=== PATIENT | female | born 1935 | race Caucasian/White ===

== ENCOUNTER → 2016-06-06 | Outpatient (CLI) | payer OTHER, MEDICARE ==
[~2016-06-06] MED LIST: ACET325T95 PO; BECL0.3A INH; CHOL100010 PO; DIPH25CA37 PO; ENOX30IN4 SQ; FSM70 PO; GLUCTAB7 PO; LISI-729 PO; LSN10 PO; MELA1TAB3 PO; SERT1TAB88 PO
--- NOTE | 2016-06-06 13:44 | DIAGNOSTIC IMAGING REPORT ---
CHEST 2 VIEWS ROUTINE CLINICAL HISTORY: COUGH/WHEEZE dyspnea COMPARISON STUDY: 03/21/2015 FINDINGS: Emphysematous change. Chronic granulomatous change. No focal infiltrate. IMPRESSION: Chronic and emphysematous change. No acute process. Electronically signed by: Cristhian Cherry M.D. 06/06/2016 1:43 PM Dictated Date/Time: 06/06/2016 1:42 PM
== END | disposition home or self-care (01) ==
LOC: C.RAD 13:21
PROVIDERS: ATTEND Nurse Practitioner Family
DX: R05 Cough (principal); R06.2 Wheezing

== ENCOUNTER → 2016-06-24 | Outpatient (CLI) | payer OTHER, MEDICARE | END | disposition home or self-care (01) | LOC: C.MAMM 07:58 | PROVIDERS: ATTEND Internal Medicine | DX: M85.859 Other specified disorders of bone density and structure, unspecified thigh (principal); Z78.0 Asymptomatic menopausal state; M81.8 Other osteoporosis without current pathological fracture ==

== ENCOUNTER → 2016-07-22 | Outpatient (CLI) | payer OTHER, MEDICARE | LOC: C.LABFOXMH 09:38 | PROVIDERS: ATTEND Internal Medicine | DX: M81.0 Age-related osteoporosis without current pathological fracture (principal) ==

== ENCOUNTER → 2016-08-13 | Outpatient (CLI) | payer OTHER, MEDICARE ==
--- NOTE | 2016-08-13 16:35 | DIAGNOSTIC IMAGING REPORT ---
CHEST 2 VIEWS ROUTINE CLINICAL HISTORY: COUGH COMPARISON STUDY: June 06, 2016 FINDINGS: There is severe pulmonary emphysema. There are calcified right hilar and right paratracheal lymph nodes. There is no failure. There is no focal pulmonary consolidation. There is a severe compression fracture at the T12 level. This is present on the prior study but has progressed slightly.[ IMPRESSION: No active disease in the chest. Electronically signed by: Shaggy Brown M.D. 08/13/2016 4:34 PM Dictated Date/Time: 08/13/2016 4:33 PM
== END | disposition home or self-care (01) ==
LOC: C.RADBC 16:19
PROVIDERS: ATTEND Internal Medicine
DX: R05 Cough (principal); R09.89 Other specified symptoms and signs involving the circulatory and respiratory systems

== ENCOUNTER → 2016-10-15 | Outpatient (CLI) | payer OTHER, MEDICARE ==
[2016-10-15 08:55] LABS: HEMATOCRIT 44.9 % (37-47); MEAN CELL VOLUME 94.3 fL (80-100); MEAN CORPUSCULAR HEMOGLOBIN 31.1 pg (25-34); MEAN PLATELET VOLUME 9.4 fL (7.4-10.4); PLATELET COUNT 219 K/uL (130-400); RED BLOOD COUNT 4.76 M/uL (4.2-5.4); WHITE BLOOD COUNT 3.83 K/uL (4.8-10.8)
[2016-10-15 09:02] LABS: ALT/SGPT 31 U/L (12-78); AST/SGOT 28 U/L (15-37); BLOOD UREA NITROGEN 12 mg/dl (7-18); BUN/CREATININE RATIO 16.2 (10-20); CALCIUM 9.3 mg/dl (8.5-10.1); CARBON DIOXIDE 30 mmol/L (21-32); CHLORIDE 102 mmol/L (98-107); CREATININE 0.76 mg/dl (0.60-1.20); GLUCOSE 81 mg/dl (70-99); SODIUM 139 mmol/L (136-145)
[2016-10-15 09:04] LABS: ALB/GLOB RATIO 1.5 (0.9-2); ALKALINE PHOSPHATASE 29 U/L (45-117)
== END | disposition home or self-care (01) ==
LOC: C.LABFOXMH 08:40
PROVIDERS: ATTEND Internal Medicine
DX: I10 Essential (primary) hypertension (principal)

== ENCOUNTER 2016-12-04 23:43 | Inpatient (IN) | payer OTHER, MEDICARE ==
[~2016-12-04] VITALS: Ht 160 cm; Wt 48.8 kg
[~2016-12-04 23:43] MED LIST changes: -ENOX30IN4 SQ; -LSN10 PO
[2016-12-05] MEDS ORDERED: FENTANYL CITRATE INJ 50 MCG/1 ML 2 ML VIAL IV STA (01:04)
[2016-12-05 01:48] LABS: BASO ABS # 0.05 K/uL (0-0.2); COMPLETE YES; IG% 0.4 %; LYMPH % 10.6 %; LYMPH ABS # 0.55 K/uL (1.2-3.4); MEAN CELL VOLUME 93.3 fL (80-100); MEAN CORPUSCULAR HEMOGLOBIN 31.1 pg (25-34); MEAN CORPUSCULAR HGB CONC 33.3 g/dl (32-36); MEAN PLATELET VOLUME 8.7 fL (7.4-10.4); PLATELET COUNT 195 K/uL (130-400); RED BLOOD COUNT 4.18 M/uL (4.2-5.4); WHITE BLOOD COUNT 5.18 K/uL (4.8-10.8)
--- NOTE | 2016-12-05 01:52 | EMERGENCY ROOM VISIT NOTE ---
History Report prepared by Gamaibkaci: Jon Marcus Under the Supervision of: Dr. Cesar Wilkinson M.D. First contact with patient: 23:45 Chief Complaint: FALL Stated Complaint: FALL History of Present Illness The patient is a 81 year old female who presents to the Emergency Room with complaints of constant right hip pain sp fall occurring just prior to arrival. She states that she fell because she tripped over her bed and fell onto her hip. She notes that she has a history of multiple surgeries and fractures of this hip. The patient did not hit her head or lose consciousness. She states that she cannot bear weight on her right leg. She denies any numbness, chest pain, SOB, abdominal pain, back pain, fevers, or neck pain. The patient is not on any blood thinners. Source of History: patient Onset: Just prior to arrival Position: pelvis (right hip) Timing: constant Associated Symptoms: No LOC, No fevers, No neck pain, No chest pain, No SOB , No abdominal pain, No back pain, No numbness Review of Systems See HPI for pertinent positives & negatives. A total of 10 systems reviewed and were otherwise negative. Past Medical & Surgical Medical Problems: (1) Asthma, Unspecified (2) Fall (3) Hypertension Nos Family History FH: cancer Social History Smoking Status: Former Smoker Alcohol Use: none Marital Status: Housing Status: lives with significant other Occupation Status: retired Current/Historical Medications Scheduled Alendronate Sodium (Alendronate Sodium), 70 MG PO WK Lisinopril (Zestril), 5 MG PO DAILY Sertraline HCl (Sertraline HCl), 25 MG PO QPM Scheduled PRN Acetaminophen (Tylenol), 650 MG PO Q4 PRN for Pain Allergies Coded Allergies: [place] Seed (Unverified Allergy, Severe, ITCHING, SOB, 12/05/16) Iodinated Diagnostic Agents (Unverified Allergy, Intermediate, SHORTNESS OF BREATH, 12/05/16) CONFIRMED 08/11/2014 [place] Oil (Verified Allergy, Unknown, ITCHING,SHORTNESS OF BREATH, ) Morphine (Verified Adverse Reaction, Unknown, GOT NAUSEATED AFTER 2ND SURGERY W/MSO4,NOTHING RELIEVED IT, 12/05/16) SEVERE NAUSEA Physical Exam Vital Signs Date Time Temp Pulse Resp B/P (MAP) Pulse Ox O2 Delivery O2 Flow Rate FiO2 12/05/16 05:00 88 17 188/82 94 Room Air 12/04/16 23:49 36.8 97 19 186/105 95 Room Air Physical Exam GENERAL: Patient is uncomfortable appearing and in mild distress. HEENT: No acute trauma, normocephalic atraumatic, mucous membranes moist, no nasal congestion, no scleral icterus. NECK: No stridor, no adenopathy, no meningismus, trachea is midline. LUNGS: No dyspnea. Clear to auscultation and equal bilaterally. No wheeze, no rhonchi. HEART: Regular rate and rhythm. No murmurs, rubs, gallops appreciated. ABDOMEN: Soft, nontender, bowel sounds positive, no masses appreciated, no peritonitis. BACK: No midline tenderness, no CVA tenderness EXTREMITIES: No cyanosis, no edema. Severe tenderness to palpation over the right hip. Pain with any ROM of the right hip. Tenderness to palpation of the mid-anterior right thigh. Distal NVI. NEUROLOGIC: Alert and oriented, no acute motor or sensory deficits, no focal weakness, cranial nerves grossly intact. SKIN: No rash, no jaundice, no diaphoresis. Medical Decision & Procedures ER Provider Diagnostic Interpretation: One View Pelvis X-ray interpreted by me: normal pelvic rings. No acute pelvic fracture. Right hip replacement with slight loosensy over the right greater trochanter. Hardware appears intact. Four View Right Femur X-ray interpreted by me: Right hip replacement. Hardware, rashad and cement appear intact. Loosensy over the right greater trochanter without displacement. New compared to previous x-ray from 2016. Laboratory Results 12/05/16 01:25 Red Blood Count 4.18, Mean Corpuscular Volume 93.3, Mean Corpuscular Hemoglobin 31.1, Mean Corpuscular Hemoglobin Concent 33.3, Mean Platelet Volume 8.7, Neutrophils (%) (Auto) 71.0, Lymphocytes (%) (Auto) 10.6, Monocytes (%) (Auto) 11.0, Eosinophils (%) (Auto) 6.0, Basophils (%) (Auto) 1.0, Neutrophils # (Auto ) 3.68, Lymphocytes # (Auto) 0.55, Monocytes # (Auto) 0.57, Eosinophils # (Auto ) 0.31, Basophils # (Auto) 0.05 8/31/17 01:25 Test 12/05/16 01:25 White Blood Count 5.18 K/uL (4.8-10.8) Red Blood Count 4.18 M/uL (4.2-5.4) Hemoglobin 13.0 g/dL (12.0-16.0) Hematocrit 39.0 % (37-47) Mean Corpuscular Volume 93.3 fL (80-100) Mean Corpuscular Hemoglobin 31.1 pg (25-34) Mean Corpuscular Hemoglobin Concent 33.3 g/dl (32-36) Platelet Count 195 K/uL (130-400) Mean Platelet Volume 8.7 fL (7.4-10.4) Neutrophils (%) (Auto) 71.0 % Lymphocytes (%) (Auto) 10.6 % Monocytes (%) (Auto) 11.0 % Eosinophils (%) (Auto) 6.0 % Basophils (%) (Auto) 1.0 % Neutrophils # (Auto) 3.68 K/uL (1.4-6.5) Lymphocytes # (Auto) 0.55 K/uL (1.2-3.4) Monocytes # (Auto) 0.57 K/uL (0.11-0.59) Eosinophils # (Auto) 0.31 K/uL (0-0.5) Basophils # (Auto) 0.05 K/uL (0-0.2) RDW Standard Deviation 44.1 fL (36.4-46.3) RDW Coefficient of Variation 12.9 % (11.5-14.5) Immature Granulocyte % (Auto) 0.4 % Immature Granulocyte # (Auto) 0.02 K/uL (0.00-0.02) Prothrombin Time 12.0 SECONDS (9.0-12.0) Prothromb Time International Ratio 1.1 (0.9-1.1) Activated Partial Thromboplast Time 25.9 SECONDS (21.0-31.0) Partial Thromboplastin Ratio 1.0 Anion Gap 4.0 mmol/L (3-11) Est Creatinine Clear Calc Drug Dose 39.8 ml/min Estimated GFR () 74.5 Estimated GFR (Non- 64.3 BUN/Creatinine Ratio 24.0 (10-20) Calcium Level 8.7 mg/dl (8.5-10.1) Laboratory results as reviewed by me. Medications Administered Medications (Trade) Dose Ordered Sig/Solo Route Start Time Stop Time Status Last Admin Dose Admin Fentanyl Citrate (Fentanyl Inj) 25 mcg NOW STAT IV 12/05/16 01:04 12/05/16 01:05 DC 12/05/16 01:35 25 MCG ED Course 2346: The patient was evaluated in room B4B. A complete history and physical exam was performed. 0052: I reassessed the patient. She is in no pain while resting, but has significant pain with sitting up. 0104: Ordered Fentanyl Inj 25 mcg IV. 0118: The patient is refusing all pain medications and laboratory studies. She states "I just want to sleep here tonight". 0121: I spoke with the patient. She will now take the pain medication and allow for laboratory draw. 0140: Upon reevaluation, the patient is resting comfortably. Discussed results and treatment plan with the patient. She verbalized understanding and agreement with the treatment plan. The patient will be evaluated for further management. Medical Decision Differential: Fracture, Dislocation, Ligamentous Injury, Effusion, amongst other pathologies entertained. 81 yr old female with mechanical fall at home landing on previously replaced right hip. Slight acute fracture right lateral upper femur with no displacement nor hardware malalignment. Attempted to ambulate without ability. IV established and given IV narcotics. Still unable to ambulate without significant pain. Will bring in for further ortho eval and OT/PT evals with possible placement if need be. Labs per standard essentially unremarkable. Medication Reconcilliation Current Medication List: was personally reviewed by me Blood Pressure Screening Patient's blood pressure: Elevated blood pressure Blood pressure disposition: Referred to PCP Consults Time Called: 0120 Consulting Physician: [facility] Return[facility] Call: 0140 Discussed the patient's case. The patient will be evaluated for further treatment and disposition. Impression Primary Impression: Closed right hip fracture Additional Impressions: Ambulatory dysfunction Fall Scribe Attestation The scribe's documentation has been prepared under my direction and personally reviewed by me in its entirety. I confirm that the note above accurately reflects all work, treatment, procedures, and medical decision making performed by me. Departure Information Dispostion Being Evaluated By Hospitalist Referrals Vince Snell (PCP) Patient Instructions My [facility] Health Problem Qualifiers
[2016-12-05 02:01] LABS: INR 1.1 (0.9-1.1)
[2016-12-05] MEDS ORDERED: HYDROmorphone INJ 2 MG/ML SYR/VIAL IV PRN (03:30)
--- NOTE | 2016-12-05 03:36 | History and Physical ---
History & Physical Date & Time of Service: Dec 05, 2016 at 03:26 Chief Complaint: FALL Primary Care Physician: Vince Snell History of Present Illness Source: patient 81-year-old female with past medical history of hypertension, depression present in the ER with complaints of right hip pain after she sustained a mechanical fall prior to arrival. The patient stated that she had tripped over her bed and fell on her right hip. She denied hitting her head or losing consciousness. Complaints of right hip pain and pain along the lateral aspect of the thigh, about 8-9/10 in severity, worse on bearing weight and moving the leg. Denies any numbness or tingling . Denies any chest pain, lightheadedness or dizziness, palpitations. Denied using any blood thinners. Past Medical/Surgical History Medical Problems: (1) Asthma, Unspecified Status: Chronic (2) Hypertension Nos Status: Chronic Family History FH: cancer Social History Smoking Status: Former Smoker Marital Status: Occupational Status: retired Immunizations History of Tetanus Vaccine?: Unknown History of Pneumococcal: Unknown History of Hepatitis B Vaccine: Unknown Multi-Drug Resistant Organisms History of MDRO: No Allergies Coded Allergies: [place] Seed (Unverified Allergy, Severe, ITCHING, SOB, 12/05/16) Iodinated Diagnostic Agents (Unverified Allergy, Intermediate, SHORTNESS OF BREATH, 12/05/16) CONFIRMED 08/11/2014 [place] Oil (Verified Allergy, Unknown, ITCHING,SHORTNESS OF BREATH, ) Morphine (Verified Adverse Reaction, Unknown, GOT NAUSEATED AFTER 2ND SURGERY W/MSO4,NOTHING RELIEVED IT, 12/05/16) SEVERE NAUSEA Home Medications Scheduled Alendronate Sodium (Alendronate Sodium), 70 MG PO WK Lisinopril (Zestril), 5 MG PO DAILY Sertraline HCl (Sertraline HCl), 25 MG PO QPM Scheduled PRN Acetaminophen (Tylenol), 650 MG PO Q4 PRN for Pain Review of Systems Constitutional: No fever, No chills Eyes: No worsening of vision ENT: No hearing loss Respiratory: No cough, No sputum Cardiovascular: No chest pain Abdomen: No pain, No nausea Musculoskeletal: + joint pain (right hip and thigh pain) Genitourinary - Female: No dysuria Neurologic: No memory loss, No paralysis, No numbness/tingling Endocrine: No fatigue Integumentary: No rash Physical Exam Vital Signs Date Time Temp Pulse Resp B/P (MAP) Pulse Ox O2 Delivery O2 Flow Rate FiO2 12/04/16 23:49 36.8 97 19 186/105 95 Room Air General Appearance: WD/WN, + mild distress Head: normocephalic Eyes: normal inspection ENT: hearing grossly normal Neck: supple Respiratory/Chest: chest non-tender, lungs clear, normal breath sounds, no respiratory distress, no accessory muscle use Cardiovascular: regular rate, rhythm Abdomen/GI: normal bowel sounds, non tender, soft Extremities/Musculoskelatal: + pertinent finding (Right hip and lateral thigh tender on palpation. some swelling of anterior thigh) Neurologic/Psych: alert, normal mood/affect, oriented x 3 Skin: normal color Diagnostics Laboratory Results Results Past 24 Hours Test 12/05/16 01:25 Range/Units White Blood Count 5.18 4.8-10.8 K/uL Red Blood Count 4.18 4.2-5.4 M/uL Hemoglobin 13.0 12.0-16.0 g/dL Hematocrit 39.0 37-47 % Mean Corpuscular Volume 93.3 80-100 fL Mean Corpuscular Hemoglobin 31.1 25-34 pg Mean Corpuscular Hemoglobin Concent 33.3 32-36 g/dl Platelet Count 195 130-400 K/uL Mean Platelet Volume 8.7 7.4-10.4 fL Neutrophils (%) (Auto) 71.0 % Lymphocytes (%) (Auto) 10.6 % Monocytes (%) (Auto) 11.0 % Eosinophils (%) (Auto) 6.0 % Basophils (%) (Auto) 1.0 % Neutrophils # (Auto) 3.68 1.4-6.5 K/uL Lymphocytes # (Auto) 0.55 1.2-3.4 K/uL Monocytes # (Auto) 0.57 0.11-0.59 K/uL Eosinophils # (Auto) 0.31 0-0.5 K/uL Basophils # (Auto) 0.05 0-0.2 K/uL RDW Standard Deviation 44.1 36.4-46.3 fL RDW Coefficient of Variation 12.9 11.5-14.5 % Immature Granulocyte % (Auto) 0.4 % Immature Granulocyte # (Auto) 0.02 0.00-0.02 K/uL Prothrombin Time 12.0 9.0-12.0 SECONDS Prothromb Time International Ratio 1.1 0.9-1.1 Activated Partial Thromboplast Time 25.9 21.0-31.0 SECONDS Partial Thromboplastin Ratio 1.0 Impression Assessment and Plan 81-year-old female with past medical history of hypertension, depression with complaints of right hip pain after she sustained a mechanical fall prior to arrival. She has had multiple surgeries on the right hip Right hip fracture secondary to mechanical fall : - X-rays pelvis and right femur with lucency near the greater trochanter - Pain control with Dilaudid - Orthopedic consult - Nothing by mouth Hypertension: - Continue lisinopril Depression: - Continue Zoloft DVT prophylaxis: SCDs DO NOT RESUSCITATE Disposition: Admitted to [facility] Resident Physician Supervision Note: Pt examined independently. I discussed the case with the resident and agree with the findings and plan as documented in the note. Any exceptions or clarifications are listed here: 81 y/o F Hx HTN and B/L hip replacement - suffered a mechanical fall on her R side leading to a nondisplaced periprosthetic fracture This does not appear to be an operative issue however, she is unable to now weight bear OE AAO x 3 S1,2 R CTAB NT, ND Distal pulses + P: PT AM - placement and rehab Cont home meds as prescribed Documented By: Anurag Goetz Level of Care Med/Surg Resuscitation Status DO NOT RESUSCITATE VTE Prophylaxis VTE Risk Assessment Done? Y/N: Yes Risk Level: Moderate Given or contraindicated: SCD's Resident Tracking Resident Involvement: Resident Care Provided Care Provided: Adult Hospital Medicine
[2016-12-05] MEDS ORDERED: IV FLUIDS COMPLETED PRN (04:00)
[2016-12-05] MEDS ORDERED: POLYETHYLENE (MIRALAX) 17 GM PACK PO PRN ×2 (04:00→09:15)
[2016-12-05 04:01] LABS: CALCIUM 8.7 mg/dl (8.5-10.1); CREATININE 0.84 mg/dl (0.60-1.20); POTASSIUM 3.8 mmol/L (3.5-5.1)
[2016-12-05] MEDS: ONDANSETRON INJ 2 MG/ML 2 ML VIAL IV PRN (05:39)
[2016-12-05 06:02] VITALS: BP 185/87; PULSE 99; TEMP 36.9; O2SAT 99; Ht 160 cm; Wt 48.8 kg
[2016-12-05] MEDS ORDERED: NURSING VERBAL MED ORDER ONE (06:15)
[2016-12-05] MEDS: SODIUM CHLORIDE 0.9% 1000ML 1,000 ML IV SCH ×2 (06:36→18:36)
--- NOTE | 2016-12-05 06:37 | DIAGNOSTIC IMAGING REPORT ---
RIGHT FEMUR 2 VIEWS ROUTINE CLINICAL HISTORY: Right femur pain status post fall. COMPARISON: Right femur radiographs July 08, 2015. FINDINGS: Alignment of the total right hip arthroplasty is anatomic. Longstem femoral component is present. Note is made of a nondisplaced transverse periprosthetic fracture through the greater trochanter of the right femur. No additional right femoral fractures are identified. IMPRESSION: Acute nondisplaced transverse periprosthetic fracture of the proximal lateral right femur extending through the greater trochanter. Electronically signed by: Dayday Miranda M.D. 12/05/2016 6:35 AM Dictated Date/Time: 12/05/2016 6:32 AM
--- NOTE | 2016-12-05 06:38 | DIAGNOSTIC IMAGING REPORT ---
PELVIS 1 OR 2 VIEW ROUTINE CLINICAL HISTORY: Right hip pain following fall. COMPARISON STUDY: Pelvis radiograph July 08, 2015. FINDINGS: Note is made of an acute nondisplaced transverse periprosthetic fracture of the lateral proximal right femur extending through the greater trochanter. Alignment of the right hip arthroplasty is anatomic. There are postoperative findings within the lower lumbar spine. Sacroiliac joints and symphysis pubis are intact. No additional fractures are identified on this examination. 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 IMPRESSION: Acute nondisplaced transverse periprosthetic fracture of the lateral proximal right femur extending through the greater trochanter. Electronically signed by: Dayday Miranda M.D. 12/05/2016 6:36 AM Dictated Date/Time: 12/05/2016 6:35 AM
[2016-12-05 07:16] VITALS: BP 173/75; PULSE 99; TEMP 36.3; O2SAT 99
[2016-12-05 07:57] VITALS: O2SAT 99
[2016-12-05] MEDS: LISINOPRIL 5 MG TAB PO SCH (08:35)
[2016-12-05] MEDS ORDERED: NALOXONE HCL 0.4 MG/1 ML VIAL/CARP IV PRN (09:15)
[2016-12-05] MEDS ORDERED: SOD PHOSPHATE/SOD BIPHOSPHATE ENEMA 132 ML BTL PR PRN (09:15)
[2016-12-05] MEDS ORDERED: MAGNESIUM HYDROXIDE SUSP 30 ML UDC PO PRN (09:15)
[2016-12-05] MEDS ORDERED: BISACODYL 10 MG SUPP PR PRN (09:15)
[2016-12-05] MEDS ORDERED: HYDROmorphone INJ 0.5 MG/0.5 ML SYR IV PRN ×2 (09:15)
[2016-12-05] MEDS ORDERED: HydrALAZINE HCL 20 MG/ML VIAL IV. PRN (12:00)
--- NOTE | 2016-12-05 13:20 | CONSULTATION REPORT ---
DATE OF CONSULTATION: 12/05/2016 CHIEF COMPLAINT: Right hip pain. HISTORY OF PRESENT ILLNESS: The patient is a resident of [facility], where she fell, injuring her right hip. The patient is well known to me as I was her surgeon and did her hip replacement in the same hip. Examination reveals tenderness over the greater trochanter, equal leg lengths on rotation. X-rays show a nondisplaced greater trochanter fracture. ASSESSMENT: Nondisplaced greater trochanter fracture, about a revision femoral stem. PLAN: No surgery is required. This will heal on its own. Limit weightbearing to toe touch with a walker. Follow up in my office in 2 weeks. May be discharged to [facility] upon medicine's approval.
[2016-12-05 13:26] VITALS: BP 164/73; PULSE 83
--- NOTE | 2016-12-05 14:50 | Family Medicine Progress Note ---
Progress Note Date of Service Dec 05, 2016. Subjective Pt evaluation today including: conversation w/ patient, physical exam, chart review, lab review Pain: moderate R hip pain PO Intake: NPO this AM, now reg diet Voiding: no voiding problems this morning patient reports R hip pain. Otherwise denies GOMEZ/dizziness, n/v, abd pain, sob, cp. Of note: pt reported 3 previous surgeries in R hip. !st surgery post fall on black ice in 1978 (hip was cemented given soft "butter like " bones), 4 years later had 2nd surgery for re-cementing, amd a few years after that dislocated stem had to be replaced. She also had a back surgery to remove a cyst that was pressing on sciatic nerve and an appendectomy. She is on Prolia for osteoporosis. Constitutional: No fever, No chills Respiratory: No shortness of breath Cardiovascular: No chest pain Abdomen: No pain, No nausea, No vomiting Musculoskeletal: + joint pain Neurologic: No problem reported Medications Current Inpatient Medications Medications (Trade) Dose Ordered Sig/Solo Route Start Time Stop Time Status Last Admin Dose Admin Acetaminophen (Tylenol Tab) 650 mg Q4H PRN PO 12/05/16 03:30 01/04/17 03:29 Polyethylene (Miralax Powder Packet) 17 gm DAILY PRN PO 12/05/16 04:00 01/04/17 03:59 Ondansetron HCl (Zofran Inj) 4 mg Q6H PRN IV 12/05/16 03:30 01/04/17 03:29 12/05/16 05:39 4 MG Lisinopril (Zestril Tab) 5 mg DAILY PO 12/05/16 09:00 01/04/17 08:59 Future hold 12/05/16 08:35 5 MG Sertraline HCl (Zoloft Tab) 25 mg QPM PO 12/05/16 21:00 01/04/17 20:59 Miscellaneous (Iv Fluids Completed) 1 ea PRN PRN N/A 12/05/16 04:00 12/05/17 03:59 Sodium Chloride 1,000 ml @ 80 mls/hr [id number] IV 12/05/16 06:30 01/04/17 06:29 12/05/16 06:36 80 MLS/HR Hydromorphone HCl (Dilaudid Inj) 0.25 mg Q20M PRN IV 12/05/16 09:15 12/19/16 09:14 Hydromorphone HCl (Dilaudid Inj) 0.5 mg Q20M PRN IV 12/05/16 09:15 12/19/16 09:14 Naloxone HCl (Narcan Inj) 0.1 mg PRN PRN IV 12/05/16 09:15 01/04/17 09:14 Senna/Docusate Sodium (Senokot S Tab) 2 tab HS PO 12/05/16 21:00 01/04/17 20:59 Polyethylene (Miralax Powder Packet) 17 gm DAILY PRN PO 12/05/16 09:15 01/04/17 09:14 Magnesium Hydroxide (Milk Of Magnesia Susp) 30 ml DAILY PRN PO 12/05/16 09:15 01/04/17 09:14 Bisacodyl (Dulcolax Supp) 10 mg DAILY PRN [place] 12/05/16 09:15 01/04/17 09:14 Sodium Biphosphate/ Sodium Phosphate (Fleet Enema) 132 ml PRN PRN [place] 12/05/16 09:15 Cefazolin Sodium 60 ml @ 120 mls/hr PREOP IV 12/06/16 06:00 12/06/16 18:00 Hydralazine HCl (HydrALAZINE INJ) 10 mg Q8H PRN IV. 12/05/16 12:00 01/04/17 11:59 Objective Vital Signs Date Time Temp Pulse Resp B/P (MAP) Pulse Ox O2 Delivery O2 Flow Rate FiO2 12/05/16 13:26 83 164/73 (103) 12/05/16 07:57 99 Nasal Cannula 2.0 12/05/16 07:16 36.3 99 18 173/75 (107) 99 Nasal Cannula 2.0 12/05/16 06:02 36.9 99 18 185/87 99 Room Air 12/05/16 05:00 88 17 188/82 94 Room Air 12/04/16 23:49 36.8 97 19 186/105 95 Room Air Physical Exam General Appearance: + mild distress Eyes: + pertinent finding (L eye karolina-orbital hematoma s/p running into open cabinet door a few days ago per patient) Respiratory/Chest: lungs clear, normal breath sounds, no respiratory distress Cardiovascular: regular rate, rhythm, + pertinent finding (R sided mild carotid bruit) Abdomen: normal bowel sounds, non tender, soft Extremities: + pertinent finding (R lateral hip tender to palpation) Neurologic/Psychiatric: alert, oriented x 3 Skin: warm/dry Laboratory Results 12/05/16 01:25 Red Blood Count 4.18, Mean Corpuscular Volume 93.3, Mean Corpuscular Hemoglobin 31.1, Mean Corpuscular Hemoglobin Concent 33.3, Mean Platelet Volume 8.7, Neutrophils (%) (Auto) 71.0, Lymphocytes (%) (Auto) 10.6, Monocytes (%) (Auto) 11.0, Eosinophils (%) (Auto) 6.0, Basophils (%) (Auto) 1.0, Neutrophils # (Auto ) 3.68, Lymphocytes # (Auto) 0.55, Monocytes # (Auto) 0.57, Eosinophils # (Auto ) 0.31, Basophils # (Auto) 0.05 12/05/16 01:25 Test 12/05/16 01:25 12/05/16 11:47 White Blood Count 5.18 K/uL (4.8-10.8) Red Blood Count 4.18 M/uL (4.2-5.4) Hemoglobin 13.0 g/dL (12.0-16.0) Hematocrit 39.0 % (37-47) Mean Corpuscular Volume 93.3 fL (80-100) Mean Corpuscular Hemoglobin 31.1 pg (25-34) Mean Corpuscular Hemoglobin Concent 33.3 g/dl (32-36) Platelet Count 195 K/uL (130-400) Mean Platelet Volume 8.7 fL (7.4-10.4) Neutrophils (%) (Auto) 71.0 % Lymphocytes (%) (Auto) 10.6 % Monocytes (%) (Auto) 11.0 % Eosinophils (%) (Auto) 6.0 % Basophils (%) (Auto) 1.0 % Neutrophils # (Auto) 3.68 K/uL (1.4-6.5) Lymphocytes # (Auto) 0.55 K/uL (1.2-3.4) Monocytes # (Auto) 0.57 K/uL (0.11-0.59) Eosinophils # (Auto) 0.31 K/uL (0-0.5) Basophils # (Auto) 0.05 K/uL (0-0.2) RDW Standard Deviation 44.1 fL (36.4-46.3) RDW Coefficient of Variation 12.9 % (11.5-14.5) Immature Granulocyte % (Auto) 0.4 % Immature Granulocyte # (Auto) 0.02 K/uL (0.00-0.02) Prothrombin Time 12.0 SECONDS (9.0-12.0) Prothromb Time International Ratio 1.1 (0.9-1.1) Activated Partial Thromboplast Time 25.9 SECONDS (21.0-31.0) Partial Thromboplastin Ratio 1.0 Anion Gap 4.0 mmol/L (3-11) Est Creatinine Clear Calc Drug Dose 39.8 ml/min Estimated GFR () 74.5 Estimated GFR (Non- 64.3 BUN/Creatinine Ratio 24.0 (10-20) Calcium Level 8.7 mg/dl (8.5-10.1) 25-Hydroxy Vitamin D Total 54.1 ng/ml (30-100) Date/Time Source Procedure Growth Status 12/05/16 09:55 Nasal MRSA DNA Surveillance Screen - Final Specimen Negative for MRSA by DNA Probe Complete Assessment and Plan 81-year-old female with hx of of hypertension, and depression presented with right hip pain s/p mechanical fall consistent with non-displaced transverse periprosthetic fracture of the proximal lateral R femur extending through the greater trochanter. Of note: She has had 3 R hip surgeries since falling on black ice in 1978.As part of pre-op assessment, EKG ordered and R carotid bruit noted which was followed up by carotid doppler US. Found to have moderate atherosclerotic plaque within the proximal bilateral internal carotid arteries without sonographic evidence of a hemodynamically significant stenosis. Orthopedics consulted but did not see the need for surgery.Ortho recommended limited weight bearing to toe touch with a walker and discharge once medically stable to [facility]. Right hip fracture secondary to mechanical fall - X-rays pelvis and right femur consistent with R hip fracture - Vit D level: 54.1 - Pain control with Dilaudid - Orthopedic consulted - no surgery only limited weightbearing - [facility] once medically stable - Outpt Ortho follow up in 2 weeks Hypertension and CV pre-op assessment - Continue lisinopril - Hydralazine 10mg Q8H PRN for BP > 180/110 - EKG - Ordered carotid Doppler to evaluate R carotid bruit - moderate maria esther internal carotid plagues Depression - Continue Zoloft DVT prophylaxis Lovenox 40mg SQ SCDs DO NOT RESUSCITATE Disposition: To [facility] once medically stable Continued [facility] stay due to: ambulation difficulties Discharge planning: rehab hospital Resident Involvement: Resident Care Provided Care Provided: Adult Hospital Medicine Reviewed: Pt Seen/Exam by Me History Resident Physician Supervision Note: I interviewed and examined the patient. Discussed with Dr. Calloway and agree with findings and plan as documented in the note. Any exceptions or clarifications are listed here: Pt with pain in right hip with minimal movement, but otherwise feels fine. Denies CP,SOB,Abd pain, no N/V. General Appearance: thin, very pleasant, NAD Eyes: + pertinent finding L eye karolina-orbital hematoma Respiratory/Chest: lungs clear, normal breath sounds, no respiratory distress Cardiovascular: regular rate, rhythm, + pertinent finding (R sided faint carotid bruit) Abdomen: normal bowel sounds, non tender, soft Extremities: + pertinent finding (R lateral hip tender to palpation, no edema, previous surgical scars noted) Neurologic/Psychiatric: alert, oriented x 3 Skin: warm/dry 81 yo female with a nondisplaced right periprosthetic greater trochanter fracture s/p mechanical fall. -no surgery indicated, TTWB and f/u Ortho in 2 weeks -start Lovenox 30mg SQ daily for DVT proph -PT/OT evaluations ordered -Dispo- needs 3 midnight stay to qualify for SNF -dilaudid for pain control now nad switch to po pain meds in the AM-possibly po dilaudid -continue Prolia, Ca+ Vit D for osteoporosis -Carotid bruit noted on exam--> no HD significant stenosis on Carotid Doppler Documented By: Katarzyna Villarreal
--- NOTE | 2016-12-05 14:57 | DIAGNOSTIC IMAGING REPORT ---
CAROTID ARTERY ULTRASOUND CLINICAL HISTORY: Right carotid bruit. COMPARISON STUDY: None. TECHNIQUE: Real-time, grayscale, and color Doppler sonography of the carotid and vertebral arteries was performed. Images were viewed in the transverse and longitudinal planes. FINDINGS: There is moderate atherosclerotic plaque. Velocity measurements are listed below. COMMON CAROTID PEAK SYSTOLIC VELOCITY (CM/S): RIGHT 99 LEFT 103 ICA PEAK SYSTOLIC VELOCITY (CM/S): RIGHT 106 LEFT 127 Although the peak systolic velocity within the proximal left internal carotid artery is mildly elevated, the systolic ratio is normal. There is no sonographic evidence of a hemodynamically significant stenosis. Antegrade flow is seen in the vertebral arteries. The external carotid arteries are patent. Blood pressure in the right arm measured 170/75. Blood pressure in the left arm measured 155/72. IMPRESSION: 1. Moderate atherosclerotic plaque within the proximal bilateral internal carotid arteries without sonographic evidence of a hemodynamically significant stenosis. 2. Elevated blood pressure, as above. Electronically signed by: Dayday Miranda M.D. 12/05/2016 2:56 PM Dictated Date/Time: 12/05/2016 2:51 PM
[2016-12-05 15:44] VITALS: BP 158/74; PULSE 84; TEMP 36.5; O2SAT 98
[2016-12-05] MEDS: ACETAMINOPHEN 325 MG TAB PO PRN (20:00)
[2016-12-05] MEDS: SERTRALINE HCL 50 MG TAB PO SCH (20:51)
[2016-12-05] MEDS: DOCUSATE SODIUM/SENNA 50/8.6MG TAB PO SCH (20:53)
[2016-12-05 23:00] VITALS: BP 159/67; PULSE 75; TEMP 36.9; O2SAT 97
[2016-12-05] MEDS ORDERED: ENOXAPARIN 40 MG/0.4 ML SYR SQ ONE (23:00)
[2016-12-05] MEDS: ENOXAPARIN 30 MG/0.3 ML SYR SQ ONE ×2 (23:01→23:37)
[2016-12-06] MEDS: ACETAMINOPHEN 325 MG TAB PO PRN (05:37)
[2016-12-06] MEDS ORDERED: CEFAZOLIN 2000 MG/60 ML D5W 60 ML IV SCH (06:00)
[2016-12-06] MEDS ORDERED: CEFAZOLIN IV 2,000 MG in DEXTROSE 5% 50ML 50 ML IV SCH (06:00)
[2016-12-06 07:18] VITALS: BP 138/69; PULSE 74; TEMP 36.6; O2SAT 97
[2016-12-06] MEDS: ONDANSETRON INJ 2 MG/ML 2 ML VIAL IV PRN (07:32)
[2016-12-06 08:09] LABS: MEAN CELL VOLUME 94.6 fL (80-100); MEAN CORPUSCULAR HEMOGLOBIN 31.7 pg (25-34); MEAN CORPUSCULAR HGB CONC 33.5 g/dl (32-36); PLATELET COUNT 175 K/uL (130-400); RED BLOOD COUNT 4.23 M/uL (4.2-5.4); WHITE BLOOD COUNT 6.72 K/uL (4.8-10.8)
[2016-12-06 08:22] VITALS: O2SAT 96
[2016-12-06 08:23] LABS: BUN/CREATININE RATIO 25.9 (10-20); CALCIUM 8.4 mg/dl (8.5-10.1); CREATININE 0.56 mg/dl (0.60-1.20); POTASSIUM 3.8 mmol/L (3.5-5.1)
[2016-12-06] MEDS: LISINOPRIL 5 MG TAB PO SCH (09:41)
[2016-12-06] MEDS: ENOXAPARIN 30 MG/0.3 ML SYR SQ SCH ×2 (11:13→14:12)
--- NOTE | 2016-12-06 13:38 | Family Medicine Progress Note ---
Progress Note Date of Service Dec 06, 2016. Subjective Pt evaluation today including: conversation w/ patient, physical exam, chart review, lab review Pain: R hip pain with movement PO Intake: tolerating reg diet Voiding: kennedy catheter in place This AM she was out of bed and off her oxygen working with OT. She reported pain with movement. Otherwise she reported being able to walk and use the restroom. Reported mild neck/upper back stiffness from being in the bed. Denied GOMEZ/dizziness, sob, cp, abd pn, n/v, d/c. Constitutional: No fever Respiratory: No shortness of breath Cardiovascular: No chest pain Abdomen: No pain, No nausea, No vomiting Musculoskeletal: + joint pain Neurologic: No problem reported Medications Current Inpatient Medications Medications (Trade) Dose Ordered Sig/Solo Route Start Time Stop Time Status Last Admin Dose Admin Acetaminophen (Tylenol Tab) 650 mg Q4H PRN PO 12/05/16 03:30 01/04/17 03:29 12/06/16 05:37 650 MG Polyethylene (Miralax Powder Packet) 17 gm DAILY PRN PO 12/05/16 04:00 01/04/17 03:59 Ondansetron HCl (Zofran Inj) 4 mg Q6H PRN IV 12/05/16 03:30 01/04/17 03:29 12/06/16 07:32 4 MG Lisinopril (Zestril Tab) 5 mg DAILY PO 12/05/16 09:00 01/04/17 08:59 Future hold 12/06/16 09:41 5 MG Sertraline HCl (Zoloft Tab) 25 mg QPM PO 12/05/16 21:00 01/04/17 20:59 12/05/16 20:51 25 MG Miscellaneous (Iv Fluids Completed) 1 ea PRN PRN N/A 12/05/16 04:00 12/05/17 03:59 Hydromorphone HCl (Dilaudid Inj) 0.25 mg Q20M PRN IV 12/05/16 09:15 12/19/16 09:14 Hydromorphone HCl (Dilaudid Inj) 0.5 mg Q20M PRN IV 12/05/16 09:15 12/19/16 09:14 Naloxone HCl (Narcan Inj) 0.1 mg PRN PRN IV 12/05/16 09:15 01/04/17 09:14 Senna/Docusate Sodium (Senokot S Tab) 2 tab HS PO 12/05/16 21:00 01/04/17 20:59 12/05/16 20:53 2 TAB Polyethylene (Miralax Powder Packet) 17 gm DAILY PRN PO 12/05/16 09:15 01/04/17 09:14 Magnesium Hydroxide (Milk Of Magnesia Susp) 30 ml DAILY PRN PO 12/05/16 09:15 01/04/17 09:14 Bisacodyl (Dulcolax Supp) 10 mg DAILY PRN [place] 12/05/16 09:15 01/04/17 09:14 Sodium Biphosphate/ Sodium Phosphate (Fleet Enema) 132 ml PRN PRN [place] 12/05/16 09:15 Cefazolin Sodium 60 ml @ 120 mls/hr PREOP IV 12/06/16 06:00 12/06/16 18:00 Hydralazine HCl (HydrALAZINE INJ) 10 mg Q8H PRN IV. 12/05/16 12:00 01/04/17 11:59 Enoxaparin Sodium (Lovenox Inj) 30 mg Q24H SQ 12/06/16 10:00 01/05/17 20:59 Objective Vital Signs Date Time Temp Pulse Resp B/P (MAP) Pulse Ox O2 Delivery O2 Flow Rate FiO2 12/06/16 08:22 96 Room Air 12/06/16 07:18 36.6 74 18 138/69 (92) 97 2.0 12/06/16 00:00 Nasal Cannula 2.0 12/05/16 23:00 36.9 75 16 159/67 (97) 97 Nasal Cannula 2.0 12/05/16 15:44 36.5 84 18 158/74 (102) 98 Nasal Cannula 2.0 12/05/16 15:30 Nasal Cannula 2.0 Physical Exam General Appearance: no apparent distress Eyes: normal inspection Respiratory/Chest: lungs clear, normal breath sounds, no respiratory distress Cardiovascular: regular rate, rhythm Abdomen: normal bowel sounds, non tender, soft Extremities: no pedal edema, + pertinent finding (R hip TTP) Neurologic/Psychiatric: alert, oriented x 3 Skin: warm/dry Laboratory Results 12/06/16 07:39 12/06/16 07:39 Test 12/06/16 07:39 Red Blood Count 4.23 M/uL (4.2-5.4) Mean Corpuscular Volume 94.6 fL (80-100) Mean Corpuscular Hemoglobin 31.7 pg (25-34) Mean Corpuscular Hemoglobin Concent 33.5 g/dl (32-36) RDW Standard Deviation 44.4 fL (36.4-46.3) RDW Coefficient of Variation 12.9 % (11.5-14.5) Mean Platelet Volume 9.0 fL (7.4-10.4) Anion Gap 6.0 mmol/L (3-11) Est Creatinine Clear Calc Drug Dose 58.6 ml/min Estimated GFR () 99.9 Estimated GFR (Non- 86.2 BUN/Creatinine Ratio 25.9 (10-20) Calcium Level 8.4 mg/dl (8.5-10.1) Assessment and Plan 81-year-old female with hx of of hypertension, and depression presented with right hip pain s/p mechanical fall consistent with non-displaced transverse periprosthetic fracture of the proximal lateral R femur extending through the greater trochanter. Of note: She has had 3 R hip surgeries since falling on black ice in 1978. Orthopedics consulted but did not see the need for surgery.Ortho recommended limited weight bearing to toe touch with a walker and discharge once medically stable to [facility]. As part of pre-op assessment, EKG ordered and R carotid bruit noted which was followed up by carotid doppler US. Found to have moderate atherosclerotic plaque within the proximal bilateral internal carotid arteries without sonographic evidence of a hemodynamically significant stenosis Right hip fracture secondary to mechanical fall - X-rays pelvis and right femur consistent with R hip fracture - Vit D level: 54.1 - Pain control with Dilaudid - Orthopedic consulted - no surgery only limited weightbearing - [facility] once medically stable - Outpt Ortho follow up in 2 weeks Hypertension and CV pre-op assessment - Continue lisinopril 5mg - Hydralazine 10mg Q8H PRN for BP > 180/110 - Ordered carotid Doppler to evaluate R carotid bruit - moderate maria esther internal carotid plagues Depression - Continue Zoloft DVT prophylaxis Lovenox 30mg SQ SCDs DO NOT RESUSCITATE Disposition: To [facility] after three nights of stay at the hospital per insurance otherwise will not cover care at [facility]. Plan d/c for Friday Resident Involvement: Resident Care Provided Care Provided: Adult Hospital Medicine Reviewed: Pt Seen/Exam by Me History Resident Physician Supervision Note: I interviewed and examined the patient. Discussed with Dr. Calloway and agree with findings and plan as documented in the note. Any exceptions or clarifications are listed here: General Appearance: thin, very pleasant, NAD Eyes: + pertinent finding L eye karolina-orbital hematoma Respiratory/Chest: lungs clear, normal breath sounds, no respiratory distress Cardiovascular: regular rate, rhythm, + pertinent finding (R sided faint carotid bruit) Abdomen: normal bowel sounds, non tender, soft Extremities: + pertinent finding (R lateral hip tender to palpation, no edema, previous surgical scars noted) Neurologic/Psychiatric: alert, oriented x 3 Skin: warm/dry 81 yo female with a nondisplaced right periprosthetic greater trochanter fracture s/p mechanical fall. -no surgery indicated, TTWB and f/u Ortho in 2 weeks -continue Lovenox 30mg SQ daily for DVT proph -PT/OT evaluations ordered-recommend SNF -Dispo- needs 3 midnight stay to qualify for SNF -Discontinue dilaudid as she reports flushing with it, Tylenol only -continue Prolia, Ca+ Vit D for osteoporosis -Carotid bruit noted on exam--> no HD significant stenosis on Carotid Doppler Documented By: Katarzyna Villarreal
[2016-12-06 14:58] VITALS: BP 162/66; PULSE 77; TEMP 36.8; O2SAT 95
[2016-12-06] MEDS ORDERED: ENOXAPARIN 30 MG/0.3 ML SYR SQ SCH (21:00)
[2016-12-06] MEDS: DOCUSATE SODIUM/SENNA 50/8.6MG TAB PO SCH (21:00)
[2016-12-06] MEDS: SERTRALINE HCL 50 MG TAB PO SCH (21:26)
[2016-12-06 22:49] VITALS: BP_SYST 148; BP_SYST 155; BP_DIAS 71; BP_DIAS 75; PULSE 84; TEMP 36.7; O2SAT 96
[2016-12-07] MEDS: ACETAMINOPHEN 325 MG TAB PO PRN ×2 (00:48→09:02)
[2016-12-07 07:43] VITALS: BP 189/74; PULSE 77; TEMP 36.5; O2SAT 98
[2016-12-07] MEDS: LISINOPRIL 5 MG TAB PO SCH (09:00)
[2016-12-07 09:03] VITALS: BP 180/80
[2016-12-07] MEDS: ENOXAPARIN 30 MG/0.3 ML SYR SQ SCH (09:45)
[2016-12-07 10:59] VITALS: BP 110/67
[2016-12-07] MEDS ORDERED: CHOLECALCIFEROL 1000 INTER.UNIT TAB PO ONE (11:58)
[2016-12-07] MEDS ORDERED: LISINOPRIL 5 MG TAB PO ONE (11:58)
--- NOTE | 2016-12-07 12:29 | Family Medicine Progress Note ---
Progress Note Date of Service Dec 07, 2016. Subjective Pt evaluation today including: conversation w/ patient, physical exam, chart review, lab review, review of inpatient medication list Pain: 10/10 pain on movement PO Intake: Tolerating PO intake Voiding: no voiding problems Ms. Ridley reports that she is doing well today, and is eager to be discharged. She states that the pain in her right hip does not bother her when she is stationary, but that it can increase to a 10/10 in severity with walking. She reports that acetaminophen takes the edge off of her pain, and states that she would prefer not to take any stronger medication, as she reacts adversely to morphine (flushing, dizziness). She denies any chest pain, SOB, n/v or leg swelling. She reports that she had to strain with her last bowel movement, and that she may take the stool softener this evening to help with this. Constitutional: No fever, No chills, No sweats, No weakness, No fatigue Respiratory: No cough, No sputum, No wheezing, No shortness of breath, No dyspnea at rest Cardiovascular: No chest pain, No orthopnea, No PND, No edema, No claudication Abdomen: No pain, No nausea, No vomiting, No diarrhea, No constipation Female : No dysuria All Other Systems: Reviewed and Negative Medications Current Inpatient Medications Medications (Trade) Dose Ordered Sig/Solo Route Start Time Stop Time Status Last Admin Dose Admin Acetaminophen (Tylenol Tab) 650 mg Q4H PRN PO 12/05/16 03:30 01/04/17 03:29 12/07/16 09:02 650 MG Polyethylene (Miralax Powder Packet) 17 gm DAILY PRN PO 12/05/16 04:00 01/04/17 03:59 Ondansetron HCl (Zofran Inj) 4 mg Q6H PRN IV 12/05/16 03:30 01/04/17 03:29 12/06/16 07:32 4 MG Sertraline HCl (Zoloft Tab) 25 mg QPM PO 12/05/16 21:00 01/04/17 20:59 12/06/16 21:26 25 MG Miscellaneous (Iv Fluids Completed) 1 ea PRN PRN N/A 12/05/16 04:00 12/05/17 03:59 Naloxone HCl (Narcan Inj) 0.1 mg PRN PRN IV 12/05/16 09:15 01/04/17 09:14 Senna/Docusate Sodium (Senokot S Tab) 2 tab HS PO 12/05/16 21:00 01/04/17 20:59 12/05/16 20:53 2 TAB Polyethylene (Miralax Powder Packet) 17 gm DAILY PRN PO 12/05/16 09:15 01/04/17 09:14 Magnesium Hydroxide (Milk Of Magnesia Susp) 30 ml DAILY PRN PO 12/05/16 09:15 01/04/17 09:14 Bisacodyl (Dulcolax Supp) 10 mg DAILY PRN [place] 12/05/16 09:15 01/04/17 09:14 Sodium Biphosphate/ Sodium Phosphate (Fleet Enema) 132 ml PRN PRN [place] 12/05/16 09:15 Hydralazine HCl (HydrALAZINE INJ) 10 mg Q8H PRN IV. 12/05/16 12:00 01/04/17 11:59 Enoxaparin Sodium (Lovenox Inj) 30 mg Q24H SQ 12/06/16 10:00 01/05/17 20:59 12/07/16 09:45 30 MG Lisinopril (Zestril Tab) 10 mg DAILY PO 12/08/16 09:00 01/04/17 08:59 Calcium/Vitamin D (Caltrate Plus Tab) 1 tab BID PO 12/07/16 21:00 01/06/17 20:59 Cholecalciferol (Vitamin D Tab) 1,000 inter.unit QAM PO 12/08/16 09:00 01/07/17 08:59 Objective Vital Signs Date Time Temp Pulse Resp B/P (MAP) Pulse Ox O2 Delivery O2 Flow Rate FiO2 12/07/16 10:59 110/67 (81) 12/07/16 09:03 180/80 (113) 12/07/16 07:43 36.5 77 16 189/74 (112) 98 Room Air 12/07/16 07:20 Room Air 12/06/16 23:30 Room Air 12/06/16 22:49 36.7 84 16 155/71 (99) 96 Room Air 12/06/16 22:49 148/75 (99) 12/06/16 16:00 Room Air 12/06/16 14:58 36.8 77 18 162/66 (98) 95 Room Air Physical Exam General Appearance: WD/WN, no apparent distress Respiratory/Chest: chest non-tender, lungs clear, normal breath sounds, no respiratory distress, no accessory muscle use Cardiovascular: regular rate, rhythm, no edema, no gallop, no JVD, no murmur Abdomen: normal bowel sounds, non tender, soft, no organomegaly Extremities: + pertinent finding (tender over R trochanter, no erythema, swelling or warmth) Neurologic/Psychiatric: alert, normal mood/affect, oriented x 3 Assessment and Plan 81-year-old female with a history of hypertension and depression presented to [facility] on December 04 after a mechanical fall onto her right hip. She sustained a non-displaced transverse periprosthetic fracture of the proximal lateral R femur extending through the greater trochanter. This hip had been injured multiple times beginning in 1978, and she has had 3 surgeries on her right hip. Ortho recommended limited weight bearing to toe touch with a walker and discharge once medically stable to [facility]. As part of pre-op assessment, EKG ordered and R carotid bruit noted which was followed up by carotid doppler US. Found to have moderate atherosclerotic plaque within the proximal bilateral internal carotid arteries without sonographic evidence of a hemodynamically significant stenosis Right hip fracture secondary to mechanical fall - X-rays pelvis and right femur consistent with R hip fracture - Vit D level: 54.1, Calcium level 8.4 - Orthopedic consulted - no surgery only limited weightbearing & outpatient follow up in 2 weeks - She was on oral vitamin D and calcium at home - started 600mg of Calcium and 400 units of Vit D BID, and 1000 units of Vit D daily - last Prolia injection was spring - d/c to [facility] once medically stable Hypertension - Increase lisinopril to 10mg daily as her blood pressure has been mostly elevated at over 150/70 mmHg - Hydralazine 10mg Q8H PRN for BP > 180/110 Right Carotid Bruit - Doppler showed moderate bilateral internal carotid plaques - no intervention required at this time Depression - Continue Zoloft DVT prophylaxis Lovenox 30mg SQ SCDs Code Status: DO NOT RESUSCITATE Disposition: d/c to [facility] tomorrow Resident Tracking Resident Involvement: Resident Care Provided Care Provided: Adult Hospital Medicine Reviewed: Pt Seen/Exam by Me History Resident Physician Supervision Note: I interviewed and examined the patient. Discussed with Dr. Moya and agree with findings and plan as documented in the note. Any exceptions or clarifications are listed here: General Appearance: thin, very pleasant, NAD Eyes: + pertinent finding L eye karolina-orbital ecchymosis improving Respiratory/Chest: lungs clear, normal breath sounds, no respiratory distress Cardiovascular: regular rate, rhythm,no mgr Abdomen: normal bowel sounds, non tender, soft Extremities: + pertinent finding (R lateral hip tender to palpation, no edema, previous surgical scars noted) Neurologic/Psychiatric: alert, oriented x 3 Skin: warm/dry 81 yo female with a nondisplaced right periprosthetic greater trochanter fracture s/p mechanical fall. -no surgery indicated, TTWB and f/u Ortho in 2 weeks -continue Lovenox 30mg SQ daily for DVT proph and would recommend continuing for 2 weeks until seen by Ortho again -PT/OT evaluations ordered-recommend SNF tomorrow after 3 night stay -Dispo- needs 3 midnight stay to qualify for SNF -Discontinue dilaudid as she reports flushing with it, Tylenol only -continue Prolia, Ca+ Vit D for osteoporosis -Carotid bruit noted on exam--> no HD significant stenosis on Carotid Doppler Documented By: Katarzyna Villarreal
[2016-12-07 15:01] VITALS: BP 119/67; PULSE 77; TEMP 36.4; O2SAT 98
[2016-12-07] MEDS: DOCUSATE SODIUM/SENNA 50/8.6MG TAB PO SCH (21:02)
[2016-12-07] MEDS: CALCIUM 600MG + VIT D 400 IU TAB PO SCH (21:02)
[2016-12-07] MEDS: SERTRALINE HCL 50 MG TAB PO SCH (21:03)
[2016-12-07 22:56] VITALS: BP 170/89; PULSE 86; TEMP 36.5; O2SAT 97
[2016-12-08] MEDS: ACETAMINOPHEN 325 MG TAB PO PRN (00:02)
[2016-12-08 03:54] VITALS: BP 179/82
[2016-12-08 06:55] VITALS: BP 166/72; PULSE 80; TEMP 36.4; O2SAT 93
[2016-12-08] MEDS: CALCIUM 600MG + VIT D 400 IU TAB PO SCH (08:48)
[2016-12-08] MEDS ORDERED: CHOLECALCIFEROL 1000 INTER.UNIT TAB PO SCH (09:00)
[2016-12-08] MEDS ORDERED: LISINOPRIL 10 MG TAB PO SCH (09:00)
[2016-12-08] MEDS ORDERED: LSN10 PO (10:02)
--- NOTE | 2016-12-08 10:19 | Discharge Instructions ---
Discharge Instructions Date of Service Dec 08, 2016. Admission Reason for Admission: FALL Discharge Discharge Diagnosis / Problem: Right Hip Fracture Discharge Goals Goal(s): Decrease discomfort, Improve function Activity Recommendations Activity Level: Assistance Required Therapies: Physical Therapy, Occupational Therapy Weightbearing Status: Right toe touch Limit weightbearing to toe touch with a walker. . Additional Information Patient informed of condition: Yes Advance Directives: No DNR: Yes Level of Care: Skilled Communicable Disease: No Prognosis: Stable Malin Catheter: No Instructions / Follow-Up Instructions / Follow-Up Ms. Ridley was admitted to [facility] on December 04 after a fall onto her right hip. Her hips were xrayed and this was found to be a fracture. Orthopedics assessed her and stated that there was no need for surgical intervention - it would heal with time. They have recommended that she limit weightbearing to toe touch with a walker and follow up with Dr. Carlisle in his office in 2 weeks. While she was in the hospital, her blood pressure was noted to be elevated and therefore her lisinopril was increased to 10mg daily from 5mg. Please continue with this increased dosage. Due to her limited mobility over the next couple of weeks, we will also be discharging her home on 11 days of lovenox injections to prevent a blood clot from forming. She can continue her other home medications, including her daily calcium and Vitamin D, as prescribed. Current Hospital Diet Patient's current hospital diet: Regular Diet Discharge Diet Recommended Diet: Regular Diet Procedures Procedures Performed: Hip xray Carotid Doppler - no significant stenosis noted Pending Studies Studies pending at discharge: no Physician Orders On Transfer Special Precautions: Fall risk Dressing Changes: N/A IV Therapy: N/A Vital Signs: Routine Weigh: Routine Additional Orders: Please make follow up appt with orthopedics in 10 days - Dr. Carlisle. POL Discussion: Not Applicable Medical Emergencies . Who to Call and When: Medical Emergencies: If at any time you feel your situation is an emergency, please call 911 immediately. . Non-Emergent Contact Non-Emergency issues call your: Primary Care Provider Call Non-Emergent contact if: you have a fever, your pain is worsening, you have any medication questions . . "Provider Documentation" section prepared by Estelle Moya. . Core Measure Problem Core Measures: None
[2016-12-08] MEDS ORDERED: ENOX30IN4 SQ (10:21)
[2016-12-08] MEDS: ENOXAPARIN 30 MG/0.3 ML SYR SQ SCH (10:37)
[2016-12-08 10:41] VITALS: BP 166/72; PULSE 80; TEMP 36.4; O2SAT 93
--- NOTE | 2016-12-08 11:26 | Discharge Summary ---
Discharge Summary Date of Service Dec 08, 2016. (Estelle Moya M.D.) Discharge Summary Admission Date: Dec 05, 2016 at 09:17 Discharge Date: Dec 08, 2016 Discharge Disposition: [facility] facility Principal Diagnosis: Right hip fracture Immunizations: History of Tetanus Vaccine?: Unknown History of Pneumococcal: Unknown History of Hepatitis B Vaccine: Unknown (Estelle Moya M.D.) Problems/Secondary Diagnoses: Hypertension Depression Osteoporosis Right carotid bruit Procedures: Femur xray Pelvis Xray Carotid Doppler (Katarzyna Villarreal MD) Medication Reconciliation New Medications: Enoxaparin (Lovenox) 30 Mg/0.3 Ml Inj 30 MG SQ Q24H for 11 Days, SYR Lisinopril (Zestril) 10 Mg Tab 10 MG PO DAILY, #30 TAB 3 Refills Continued Medications: Acetaminophen (Tylenol) 325 Mg Tab 650 MG PO Q4 PRN for Pain Alendronate Sodium (Alendronate Sodium) 70 Mg Tab 70 MG PO WK, #4 Sertraline HCl (Sertraline HCl) 25 Mg Tab 25 MG PO QPM, #30 Discontinued Medications: Lisinopril (Zestril) 5 Mg Tab 5 MG PO DAILY, TAB Discharge Exam Ms. Ridley reports that she feels well today. The pain in her right hip is worst when she moves or ambulates, but does not bother her at rest. She denies chest pain, shortness of breath, leg swelling, constipation or syncopal episodes. She is eager to be discharged. Review of Systems: Constitutional: + weight loss, No fever, No chills, No sweats, No weakness Respiratory: No cough, No sputum, No shortness of breath, No dyspnea on exertion, No dyspnea at rest Cardiovascular: No chest pain, No edema Abdomen: No pain, No nausea, No vomiting, No diarrhea, No constipation Musculoskeletal: + joint pain (right hip), + muscle pain (states that her muscles spasm on her right leg when she lays in bed for an extended period of time), No swelling Physical Exam: General Appearance: WD/WN, no apparent distress Respiratory/Chest: chest non-tender, lungs clear, normal breath sounds, no respiratory distress, no accessory muscle use Cardiovascular: regular rate, rhythm, no edema, no gallop, no JVD, no murmur , normal peripheral pulses Abdomen / GI: normal bowel sounds, non tender, soft, no organomegaly, no pulsatile mass Extremities: + inflammation, + swelling, + pertinent finding (tenderness over right greater trochanter and over iliotibial band and rectus femoris) (Estelle Moya M.D.) Hospital Course Ms. Ridley was admitted to [facility] on December 04 after a fall onto her right hip. Her hips were xrayed and this was found to be a non-displaced transverse periprosthetic fracture of the proximal lateral right femur extending to the greater trochanter. Orthopedics assessed her and stated that there was no need for surgical intervention - it would heal with time. They have recommended that she limit weightbearing to toe touch with a walker and follow up with Dr. Carlisle in his office in 2 weeks. She was discharged to [facility]. While she was in the hospital, her blood pressure was noted to be persistently elevated and therefore her lisinopril was increased to 10mg daily from 5mg. She was discharged on the increased dosage of 10mg daily. During her time here, it was also noticed that she had a right carotid bruit - this was investigated with a carotid doppler which showed moderate atherosclerotic plaque within the proximal bilateral internal carotid arteries without hemodynamically significant stenosis. Due to her limited mobility over the next couple of weeks, she was also discharged on 11 days of lovenox injections. She will continue her other home medications, including her daily calcium and Vitamin D, as prescribed. Total Time Spent: Less than 30 minutes This includes examination of the patient, discharge planning, medication reconciliation, and communication with other providers. (Estelle Moya M.D.) Discharge Instructions Please refer to the electronic Patient Visit Report (Discharge Instructions) for additional information. (Estelle Moya M.D.) Follow-Up She will follow up with Dr. Carlisle in ten days for review of her fracture. (Estelle Moya M.D.) Resident Tracking Resident Involvement: Resident Care Provided Care Provided: [facility] (Estelle Moya M.D.) Reviewed: Pt Seen/Exam by Me (Katarzyna Villarreal MD) History Resident Physician Supervision Note: I interviewed and examined the patient. Discussed with Dr. Moya and agree with findings and plan as documented in the note. Any exceptions or clarifications are listed here: Pt feeling very well. Minimal pain and doesn't want to take anything for pain. General Appearance: thin, very pleasant, NAD Eyes: + pertinent finding L eye karolina-orbital ecchymosis improving Respiratory/Chest: lungs clear, normal breath sounds, no respiratory distress Cardiovascular: regular rate, rhythm,no mgr Abdomen: normal bowel sounds, non tender, soft Extremities: + pertinent finding (R lateral hip tender to palpation, no edema, previous surgical scars noted) Neurologic/Psychiatric: alert, oriented x 3 Skin: warm/dry 81 yo female with a nondisplaced right periprosthetic greater trochanter fracture s/p mechanical fall. -no surgery indicated, TTWB and f/u Ortho in 2 weeks -continue Lovenox 30mg SQ daily for DVT proph and would recommend continuing for 2 weeks until seen by Ortho again -needs continued PT/OT at [facility] -continue Prolia, Ca+ Vit D for osteoporosis -Carotid bruit noted on exam--> no HD significant stenosis on Carotid Doppler Documented By: Katarzyna Villarreal (Katarzyna Villarreal MD)
== END 2016-12-08 11:10 | DRG 536 ==
LOC: EDUNIT# 23:43 → C.EDB 23:45 → C.MSN 12-05 03:26 → ENRESERV 12-05 04:35 → OBSVTOIN 12-05 09:17
PROVIDERS: ADMIT Family Medicine; ATTEND Family Medicine
DX: S72.114A Nondisplaced fracture of greater trochanter of right femur, initial encounter for closed fracture (principal); M97.01XA Periprosthetic fracture around internal prosthetic right hip joint, initial encounter; W01.0XXA Fall on same level from slipping, tripping and stumbling without subsequent striking against object, initial encounter; Y92.003 Bedroom of unspecified non-institutional (private) residence as the place of occurrence of the external cause; I65.23 Occlusion and stenosis of bilateral carotid arteries; I10 Essential (primary) hypertension; M81.0 Age-related osteoporosis without current pathological fracture; F32.9 Major depressive disorder, single episode, unspecified; Z66 Do not resuscitate; Z87.891 Personal history of nicotine dependence; Z79.83 Long term (current) use of bisphosphonates; Z79.899 Other long term (current) drug therapy

== ENCOUNTER → 2016-12-08 | Outpatient (CLI) | payer OTHER, MEDICARE ==
[~2016-12-08] MED LIST changes: -BECL0.3A INH; -CHOL100010 PO; -DIPH25CA37 PO; +ENOX30IN4 SQ; -GLUCTAB7 PO; +LSN10 PO; -MELA1TAB3 PO
[2016-12-08 23:08] LABS: URINE APPEARANCE CLEAR (CLEAR); URINE BILIRUBIN NEG (NEG); URINE COLOR YELLOW; URINE NITRITE NEG (NEG); URINE PH 5.5 (4.5-7.5); URINE SPECIFIC GRAVITY 1.029 (1.000-1.030); UROBILINOGEN NEG (NEG); ZZUR CULT IF INDIC CLEAN CATCH NO
[2016-12-08 23:21] LABS: MANUAL MICROSCOPIC REQUIRED? NO; REVIEW REQ? NO
--- NOTE | 2016-12-16 07:30 | CODING QUERY NO DIAGNOSIS ---
TREATMENT RENDERED WITHOUT A DIAGNOSIS Dr. Bauer, To promote full compliance with coding requirements relating to patient care, physician participation is requested in all cases of credit portfolio advisor uncertainty. Please assist us with providing a diagnosis/symptom for the test(s) below: A diagnosis/symptom was not documented on your Order. A valid diagnosis/symptom is required to bill all insurances. Please remember that we are unable to code a diagnosis of rule out, probable, possible, questionable, or suspected. Tests that require a diagnosis: * URINALYSIS W/O MICROSCOPY DIAGNOSIS: DATE OF SERVICE: 12/08/16 Provider Signature: Date: Thank you Martín Fong [facility] Information Management Once completed, please kindly fax back to [phone] For questions please call [phone]
== END | disposition home or self-care (01) ==
LOC: C.LABFOXAE 08:34
PROVIDERS: ATTEND Internal Medicine
DX: D37.039 Neoplasm of uncertain behavior of the major salivary glands, unspecified (principal)

== ENCOUNTER → 2017-04-21 | Outpatient (CLI) | payer OTHER ==
[~2017-04-21] MED LIST changes: -ENOX30IN4 SQ; -LISI-729 PO
[2017-04-21 09:33] LABS: HEMATOCRIT 44.8 % (37-47); HEMOGLOBIN 14.6 g/dL (12.0-16.0); MEAN CELL VOLUME 95.1 fL (80-100); MEAN CORPUSCULAR HGB CONC 32.6 g/dl (32-36); MEAN PLATELET VOLUME 9.3 fL (7.4-10.4); PLATELET COUNT 289 K/uL (130-400); RED CELL DISTRIBUTION WIDTH CV 12.4 % (11.5-14.5); RED CELL DISTRIBUTION WIDTH SD 42.8 fL (36.4-46.3); WHITE BLOOD COUNT 3.96 K/uL (4.8-10.8)
[2017-04-21 09:40] LABS: ALBUMIN 4.2 gm/dl (3.4-5.0); ALT/SGPT 37 U/L (12-78); BLOOD UREA NITROGEN 13 mg/dl (7-18); CALCIUM 8.7 mg/dl (8.5-10.1); CARBON DIOXIDE 27 mmol/L (21-32); CHOLESTEROL 188 mg/dl (0-200); CREATININE 0.57 mg/dl (0.60-1.20); GLUCOSE 87 mg/dl (70-99); POTASSIUM 3.9 mmol/L (3.5-5.1); SODIUM 136 mmol/L (136-145)
[2017-04-21 09:51] LABS: ALKALINE PHOSPHATASE 60 U/L (45-117); AST/SGOT 31 U/L (15-37); LDL CHOLESTEROL CALCULATED 91 mg/dl; TOTAL PROTEIN 7.3 gm/dl (6.4-8.2)
== END | disposition home or self-care (01) ==
LOC: C.LABFOXMH 08:38
PROVIDERS: ATTEND Internal Medicine Hospice and Palliative Medicine
DX: E03.9 Hypothyroidism, unspecified (principal); E78.00 Pure hypercholesterolemia, unspecified

== ENCOUNTER 2017-05-19 08:20 | Inpatient (IN) | payer OTHER ==
[~2017-05-19] VITALS: Ht 157.5 cm; Wt 47.0 kg
[~2017-05-19 08:20] MED LIST changes: -ACET325T95 PO; +TYLOTC325 PO
[2017-05-19] MEDS ORDERED: LACTATED RINGER'S 1000ML 1,000 ML IV SCH (08:28)
[2017-05-19] MEDS ORDERED: ACETAMINOPHEN 500 MG TAB PO PRN (08:30)
--- NOTE | 2017-05-19 08:36 | EMERGENCY ROOM VISIT NOTE ---
History Report prepared by Rafael: Yo Hill Under the Supervision of: Dr. Bhaskar Sales D.O. First contact with patient: 08:26 Stated Complaint: FALL/HIP PAIN History of Present Illness The patient is an 81 year old female who presents to the Emergency Room with complaints of constant and severe pain in her right hip that began shortly prior to arrival, following a falling episode. The patient notes that she slipped on the ice and fell directly onto her left hip. She is having spasms in the hip currently. The patient denies hitting or head or losing consciousness at any point during the accident. She has no other complaints at this time. The patient added that she is "soft boned" and has had multiple orthopedic injuries/ surgeries in the past. She has broken her right hip in the past, requiring 1 replacement surgery and two subsequent revisions. Source of History: patient Onset: Shortly COMPUTER GAME DESIGNER Position: other (Left Hip) Symptom Intensity: severe Quality: other (Traumatic Fall) Timing: constant Associated Symptoms: No LOC, No headache Review of Systems See HPI for pertinent positives & negatives. A total of 10 systems reviewed and were otherwise negative. Past Medical & Surgical Medical Problems: (1) Asthma, Unspecified (2) Fall (3) Hypertension Nos Family History FH: cancer Social History Smoking Status: Former Smoker Alcohol Use: none Marital Status: Housing Status: lives with significant other Occupation Status: retired Current/Historical Medications Scheduled Alendronate Sodium (Alendronate Sodium), 70 MG PO WK Lisinopril (Zestril), 10 MG PO DAILY Sertraline HCl (Sertraline HCl), 25 MG PO QPM Scheduled PRN Acetaminophen (Tylenol), 650 MG PO Q4 PRN for Pain Allergies Coded Allergies: Hedrick Seed (Unverified Allergy, Severe, ITCHING, SOB, 12/05/16) Iodinated Diagnostic Agents (Unverified Allergy, Intermediate, SHORTNESS OF BREATH, 12/05/16) CONFIRMED 08/11/2014 Hedrick Oil (Verified Allergy, Unknown, ITCHING,SHORTNESS OF BREATH, ) Morphine (Verified Adverse Reaction, Unknown, GOT NAUSEATED AFTER 2ND SURGERY W/MSO4,NOTHING RELIEVED IT, 12/05/16) SEVERE NAUSEA Physical Exam Vital Signs Date Time Temp Pulse Resp B/P (MAP) Pulse Ox O2 Delivery O2 Flow Rate FiO2 05/19/17 09:46 77 16 176/73 97 Room Air 05/19/17 09:01 79 20 144/115 99 Room Air 05/19/17 08:40 36.7 85 20 228/62 100 Room Air 05/19/17 08:32 87 Physical Exam CONSTITUTIONAL/VITAL SIGNS: Reviewed / noted above. GENERAL: Non-toxic in appearance. INTEGUMENTARY: Warm, dry, and Monon. HEAD: Normocephalic. EYES: without scleral icterus or trauma. ENT/OROPHARYNX: clear and moist. LYMPHADENOPATHY/NECK: Is supple without lymphadenopathy or meningismus. RESPIRATORY: Lungs clear and equal. CARDIOVASCULAR: Regular rate and rhythm. GI/ABDOMEN: Soft and nontender. No organomegaly or pulsatile mass. No rebound or guarding. Normal bowel sounds. EXTREMITIES: Warm and well perfused. There is tenderness to the left hip with palpation. Patient is holding the left leg/hip in a flexed position. Good distal pulses present on exam. BACK: No CVA tenderness. NEUROLOGICAL: Intact without focal deficits. PSYCHIATRIC: normal affect. MUSCULOSKELETAL: Normally developed with good muscle tone. Medical Decision & Procedures ER Provider Diagnostic Interpretation: Radiology results as stated below per my review and radiologist interpretation: CHEST ONE VIEW PORTABLE HISTORY: fall, left hip pain COMPARISON: Chest 08/13/2016. FINDINGS: No change in the calcified right peritracheal and right hilar lymph nodes. Lobular density left lung base consistent with a small Bochdalek hernia. This remains unchanged. Old, healed bilateral rib fractures. Linear density at the right lung base consistent with subsegmental atelectasis or scarring. No new focal lung consolidations. No pleural effusions. No pneumothorax. Emphysema. The heart remains borderline enlarged. IMPRESSION: No significant change compared to the prior study. No acute process. Electronically signed by: Oren Hobbs M.D. 05/19/2017 9:40 AM Dictated Date/Time: 05/19/2017 9:38 AM L PELVIS/UNILATERAL HIP 2-3VIEWS CLINICAL HISTORY: Fall. Left hip pain. COMPARISON: Pelvis radiograph July 08, 2015. FINDINGS: There is an impacted, moderately displaced and comminuted left femoral neck fracture. Associated angulation at the level of the fracture is noted. A right hip arthroplasty is in place as well as a lower lumbar spine discectomy and fusion. Sacroiliac joints and symphysis pubis are intact. IMPRESSION: Acute moderately displaced comminuted impacted left femoral neck fracture. Electronically signed by: Dayday Miranda M.D. 05/19/2017 9:40 AM Dictated Date/Time: 05/19/2017 9:37 AM Laboratory Results 05/19/17 08:40 Red Blood Count 4.76, Mean Corpuscular Volume 94.1, Mean Corpuscular Hemoglobin 32.1, Mean Corpuscular Hemoglobin Concent 34.2, Mean Platelet Volume 8.8, Neutrophils (%) (Auto) 55.5, Lymphocytes (%) (Auto) 24.1, Monocytes (%) (Auto) 10.6, Eosinophils (%) (Auto) 8.8, Basophils (%) (Auto) 0.8, Neutrophils # (Auto ) 2.71, Lymphocytes # (Auto) 1.18, Monocytes # (Auto) 0.52, Eosinophils # (Auto ) 0.43, Basophils # (Auto) 0.04 05/19/17 08:40 Test 05/19/17 08:40 White Blood Count 4.89 K/uL (4.8-10.8) Red Blood Count 4.76 M/uL (4.2-5.4) Hemoglobin 15.3 g/dL (12.0-16.0) Hematocrit 44.8 % (37-47) Mean Corpuscular Volume 94.1 fL (80-100) Mean Corpuscular Hemoglobin 32.1 pg (25-34) Mean Corpuscular Hemoglobin Concent 34.2 g/dl (32-36) Platelet Count 225 K/uL (130-400) Mean Platelet Volume 8.8 fL (7.4-10.4) Neutrophils (%) (Auto) 55.5 % Lymphocytes (%) (Auto) 24.1 % Monocytes (%) (Auto) 10.6 % Eosinophils (%) (Auto) 8.8 % Basophils (%) (Auto) 0.8 % Neutrophils # (Auto) 2.71 K/uL (1.4-6.5) Lymphocytes # (Auto) 1.18 K/uL (1.2-3.4) Monocytes # (Auto) 0.52 K/uL (0.11-0.59) Eosinophils # (Auto) 0.43 K/uL (0-0.5) Basophils # (Auto) 0.04 K/uL (0-0.2) RDW Standard Deviation 43.3 fL (36.4-46.3) RDW Coefficient of Variation 12.5 % (11.5-14.5) Immature Granulocyte % (Auto) 0.2 % Immature Granulocyte # (Auto) 0.01 K/uL (0.00-0.02) Prothrombin Time 11.2 SECONDS (9.0-12.0) Prothromb Time International Ratio 1.1 (0.9-1.1) Activated Partial Thromboplast Time 24.3 SECONDS (21.0-31.0) Partial Thromboplastin Ratio 0.9 Anion Gap 10.0 mmol/L (3-11) Est Creatinine Clear Calc Drug Dose 48.7 ml/min Estimated GFR () 95.2 Estimated GFR (Non- 82.1 BUN/Creatinine Ratio 27.6 (10-20) Calcium Level 9.4 mg/dl (8.5-10.1) Laboratory results as stated above per my review. Medications Administered Medications (Trade) Dose Ordered Sig/Solo Route Start Time Stop Time Status Last Admin Dose Admin Lactated Ringer's 1,000 ml @ 75 mls/hr [id number] IV 05/19/17 08:28 3 08:27 05/19/17 09:00 75 MLS/HR Fentanyl Citrate (Fentanyl Inj) 50 mcg Q1HWA PRN IV 05/19/17 08:30 06/02/17 08:29 05/19/17 08:41 50 MCG Hydromorphone HCl (Dilaudid Inj) 0.5 mg NOW STAT IV 05/19/17 08:56 05/19/17 08:58 DC 05/19/17 09:00 0.5 MG Ondansetron HCl (Zofran Inj) 4 mg NOW STAT IV 05/19/17 08:56 05/19/17 08:58 DC 05/19/17 09:00 4 MG ECG Indication: other (Fall, Trauma) Rate (beats per minute): 85 Rhythm: normal sinus Findings: LBBB (incomplete), other (No ST Elevation No ST depression) Change: Patient's electrocardiogram interpreted by me. ED Course 826: Previous medical records were reviewed. The patient was evaluated in room B3B. A complete history and physical examination was performed. 0828: Ordered Lactated Ringer's 1000 mL @ 75 mL/hr IV. 829: Ordered Fentanyl 50 mcg IV, Acetaminophen 1000 mg PO. 0856: Ordered Zofran 4 mg IV, Dilaudid 0.5 mg IV. 51: I discussed the case with Dr. Taisha HAWK Hospitalist. He will evaluate the patient for further treatment. He asked me to contact the on-call orthopedic surgeon to make him aware of the case as well. 1005: I made Shayne Fitzpatrick PA-C aware of the patient's case and need for surgical intervention at this time. Medical Decision Differential includes close head injury, intracranial bleed, facial trauma, cervical spine trauma, chest and thoracic trauma, abdominal and intra-abdominal trauma, spine neurologic trauma, extremity trauma. This is an 81-year-old female who presents to the ED with a chief complaint of fall and left hip pain. The fall occurred after the patient slipped on some ice and fell onto her left hip. Her exam is suggestive of left hip injury. X- ray reveals a moderately displaced, comminuted impacted left femoral neck fracture. The patient's chest x-ray did not show acute disease. PRP and CBC were normal. The patient received IV fentanyl, IV Dilaudid, IV Zofran and IV fluids. She denies striking her head, loss of consciousness, neck back or other injury. The patient will be seen by the hospitalist service, who I spoke with. I also spoke with Jason Kraft from orthopedics who will see the patient as well. Medication Reconcilliation Current Medication List: was personally reviewed by me Blood Pressure Screening Patient's blood pressure: Elevated blood pressure Blood pressure disposition: Elevated BP felt to be situational (hip fracture) Referred to Hospitalist Consults Time Called: [phone] Consulting Physician: Dr. Taisha HAWK Hospitalist Returned Call: [phone] I discussed the case with Dr. Taisha HAWK Hospitalist. He will evaluate the patient for further treatment. He asked me to contact the on-call orthopedic surgeon to make him aware of the case as well. Additional Consults: Time Called: [phone] Consulted Physician: Jason Fitzpatrick PA-C Returned Call: [phone] Additional Comments: I made Jason Fitzpatrick PA-C aware of the patient's case and need for surgical intervention at this time. Impression Primary Impression: Femoral neck fracture Scribe Attestation The scribe's documentation has been prepared under my direction and personally reviewed by me in its entirety. I confirm that the note above accurately reflects all work, treatment, procedures, and medical decision making performed by me. Departure Information Dispostion Home / Self-Care Referrals Vince Snell (PCP)
[2017-05-19] MEDS: FENTANYL CITRATE INJ 50 MCG/1 ML 2 ML VIAL IV PRN ×4 (08:41→14:04)
[2017-05-19] MEDS ORDERED: HYDROmorphone INJ 0.5 MG/0.5 ML SYR IV STA (08:56)
[2017-05-19] MEDS ORDERED: ONDANSETRON INJ 2 MG/ML 2 ML VIAL IV STA (08:56)
[2017-05-19 09:03] LABS: BASO % 0.8 %; BASO ABS # 0.04 K/uL (0-0.2); EOS % 8.8 %; EOS ABS # 0.43 K/uL (0-0.5); HEMATOCRIT 44.8 % (37-47); HEMOGLOBIN 15.3 g/dL (12.0-16.0); IG# 0.01 K/uL (0.00-0.02); LYMPH % 24.1 %; LYMPH ABS # 1.18 K/uL (1.2-3.4); MEAN CELL VOLUME 94.1 fL (80-100); MEAN CORPUSCULAR HEMOGLOBIN 32.1 pg (25-34); MEAN CORPUSCULAR HGB CONC 34.2 g/dl (32-36); MEAN PLATELET VOLUME 8.8 fL (7.4-10.4); MONO % 10.6 %; MONO ABS # 0.52 K/uL (0.11-0.59); NEUT % 55.5 %; NEUT ABS # 2.71 K/uL (1.4-6.5); PLATELET COUNT 225 K/uL (130-400); RED CELL DISTRIBUTION WIDTH CV 12.5 % (11.5-14.5); RED CELL DISTRIBUTION WIDTH SD 43.3 fL (36.4-46.3); WHITE BLOOD COUNT 4.89 K/uL (4.8-10.8)
[2017-05-19 09:13] LABS: INR 1.1 (0.9-1.1); PTT PATIENT 24.3 SECONDS (21.0-31.0)
[2017-05-19 09:20] LABS: CALCIUM 9.4 mg/dl (8.5-10.1); CREATININE 0.65 mg/dl (0.60-1.20); POTASSIUM 3.7 mmol/L (3.5-5.1)
--- NOTE | 2017-05-19 09:42 | DIAGNOSTIC IMAGING REPORT ---
L PELVIS/UNILATERAL HIP 2-3VIEWS CLINICAL HISTORY: Fall. Left hip pain. COMPARISON: Pelvis radiograph July 08, 2015. FINDINGS: There is an impacted, moderately displaced and comminuted left femoral neck fracture. Associated angulation at the level of the fracture is noted. A right hip arthroplasty is in place as well as a lower lumbar spine discectomy and fusion. Sacroiliac joints and symphysis pubis are intact. IMPRESSION: Acute moderately displaced comminuted impacted left femoral neck fracture. Electronically signed by: Dayday Miranda M.D. 05/19/2017 9:40 AM Dictated Date/Time: 05/19/2017 9:37 AM
--- NOTE | 2017-05-19 09:42 | DIAGNOSTIC IMAGING REPORT ---
CHEST ONE VIEW PORTABLE HISTORY: fall, left hip pain COMPARISON: Chest 08/13/2016. FINDINGS: No change in the calcified right peritracheal and right hilar lymph nodes. Lobular density left lung base consistent with a small Bochdalek hernia. This remains unchanged. Old, healed bilateral rib fractures. Linear density at the right lung base consistent with subsegmental atelectasis or scarring. No new focal lung consolidations. No pleural effusions. No pneumothorax. Emphysema. The heart remains borderline enlarged. IMPRESSION: No significant change compared to the prior study. No acute process. Electronically signed by: Oren Hobbs M.D. 05/19/2017 9:40 AM Dictated Date/Time: 05/19/2017 9:38 AM
[2017-05-19] MEDS ORDERED: HydrALAZINE HCL 20 MG/ML VIAL IV. PRN (11:15)
[2017-05-19] MEDS ORDERED: MoRPHine SULFATE 2 MG/ML CARP IV PRN (11:15)
[2017-05-19] MEDS ORDERED: ALUMINUM/MAGNESIUM/SIMETH (MAALOX MAX) 30 ML UDC PO PRN (11:15)
[2017-05-19] MEDS ORDERED: POLYETHYLENE (MIRALAX) 17 GM PACK PO PRN (11:15)
[2017-05-19] MEDS ORDERED: MAGNESIUM HYDROXIDE SUSP 30 ML UDC PO PRN (11:15)
[2017-05-19] MEDS ORDERED: ACETAMINOPHEN 325 MG TAB PO PRN ×2 (11:15)
[2017-05-19] MEDS ORDERED: ZOLPIDEM TARTRATE 5 MG TAB PO PRN ×2 (11:15)
--- NOTE | 2017-05-19 11:27 | DIAGNOSTIC IMAGING REPORT ---
L FEMUR 2 VIEWS ROUTINE CLINICAL HISTORY: Left proximal femur fx COMPARISON: Pelvis and left hip radiographs performed earlier today. FINDINGS: Note is made of a markedly comminuted, moderately displaced left femoral neck fracture that extends to the intertrochanteric region. Associated angulation at the level of the fracture is noted. No additional left femoral fractures are noted. Lateral view demonstrates a suspected small left knee joint effusion. IMPRESSION: 1. Markedly comminuted, moderately displaced left femoral neck fracture that extends to the intertrochanteric region. 2. No additional left femoral fractures. Suspected small left knee joint effusion. Electronically signed by: Dayday Miranda M.D. 05/19/2017 11:26 AM Dictated Date/Time: 05/19/2017 11:22 AM
[2017-05-19 11:32] VITALS: O2SAT 100; BMI 19.0
[2017-05-19] MEDS ORDERED: LISINOPRIL 5 MG TAB ONE (11:33)
--- NOTE | 2017-05-19 11:42 | History and Physical ---
History & Physical Date & Time of Service: May 19, 2017 at 11:26 Chief Complaint: Fall/Hip Pain Primary Care Physician: Vince Snell History of Present Illness Source: patient, hospital records 81 years old female with past medical history of hypertension and osteoporosis. Patient was in her usual state of health. Today she slipped on ice and landed on her left hip. She did not hit her head, she did not lose consciousness. Prior to falling she did not have any symptoms suggestive of dizziness, vertigo or presyncope. As per patient story it was purely mechanical fall. Patient does not have any other symptoms or complaint except for the pain in her left hip. 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 She was having spasms in her hip that resolved after giving her pain medications. Patient said that her allergy to morphine is just GI upset and vomiting, patient does not have any anaphylactic reaction to morphine before. Patient reported that she has no chest pain or shortness of breath. Agents can go upstairs 3 flights of stairs without having to stop to catch her breath or without developing any shortness of breath or chest pain. Retired Does not smoke or drink alcohol Family history positive for osteoporosis in her both parents Past Medical/Surgical History Medical Problems: (1) Asthma, Unspecified Status: Chronic (2) Hypertension Nos Status: Chronic Family History FH: cancer Social History Smoking Status: Never Smoker Marital Status: Occupational Status: retired Immunizations History of Tetanus Vaccine?: Unknown History of Pneumococcal: Unknown History of Hepatitis B Vaccine: Unknown Multi-Drug Resistant Organisms History of MDRO: No Allergies Coded Allergies: [place] Seed (Unverified Allergy, Severe, ITCHING, SOB, 05/19/17) Iodinated Diagnostic Agents (Unverified Allergy, Intermediate, SHORTNESS OF BREATH, 05/19/17) CONFIRMED 08/11/2014 [place] Oil (Verified Allergy, Unknown, ITCHING,SHORTNESS OF BREATH, 03/24) Morphine (Verified Adverse Reaction, Unknown, GOT NAUSEATED AFTER 2ND SURGERY W/MSO4,NOTHING RELIEVED IT, 05/19/17) SEVERE NAUSEA Home Medications Scheduled Alendronate Sodium (Alendronate Sodium), 70 MG PO WK Lisinopril (Zestril), 10 MG PO DAILY Sertraline HCl (Sertraline HCl), 25 MG PO QPM Scheduled PRN Acetaminophen (Tylenol), 650 MG PO Q4 PRN for Pain Review of Systems Constitutional: No fever, No chills, No sweats, No weight loss, No weakness, No fatigue, No problem reported Eyes: No worsening of vision, No eye pain, No redness, No discharge, No diplopia, No problem reported ENT: No hearing loss, No unusual epistaxis, No nasal symptoms, No sore throat, No tinnitus, No dental problems, No trouble swallowing, No problem reported Respiratory: No cough, No sputum, No wheezing, No shortness of breath, No dyspnea on exertion, No dyspnea at rest, No hemoptysis, No problem reported Cardiovascular: No chest pain, No orthopnea, No PND, No edema, No claudication , No palpitations, No problem reported Abdomen: No pain, No nausea, No vomiting, No diarrhea, No constipation, No GI bleeding, No problem reported Musculoskeletal: No joint pain, No muscle pain, No swelling, No calf pain, No problem reported Genitourinary - Female: No dysuria, No urinary frequency, No urinary urgency, No urinary incontinence, No urinary retention, No hematuria, No dysmenorrhea, No menorrhagia, No metrorrhagia, No rash, No vaginal bleeding, No vaginal discharge, No vaginal itching, No vulvodynia, No , No problem reported Neurologic: No memory loss, No paralysis, No weakness, No numbness/tingling, No vertigo, No balance problems, No problem reported Psychiatric: No depression symptoms, No anhedonism, No anxiety, No insomnia, No substance abuse, No problem reported Endocrine: No fatigue, No excessive thirst, No excessive urination, No problem reported Hematologic / Lymphatic: No abnormal bleeding/bruising, No clotting problems, No swollen lymph nodes, No night sweats, No problem reported Integumentary: No rash, No itch, No new/changing skin lesions, No color change , No bleeding, No problem reported Allergic / Immunologic: No environmental allergies, No seasonal allergies, No pet sensitivities, No food allergies, No hives, No frequent infections, No poor healing, No prolonged convalescence, No problem reported Physical Exam Vital Signs Date Time Temp Pulse Resp B/P (MAP) Pulse Ox O2 Delivery O2 Flow Rate FiO2 05/19/17 10:44 85 18 168/69 100 Room Air 05/19/17 09:46 77 16 176/73 97 Room Air 05/19/17 09:01 79 20 144/115 99 Room Air 05/19/17 08:40 36.7 85 20 228/62 100 Room Air 05/19/17 08:32 87 General Appearance: WD/WN, no apparent distress Head: normocephalic, atraumatic Eyes: normal inspection, EOMI ENT: normal ENT inspection, hearing grossly normal Neck: supple, no adenopathy, thyroid normal Respiratory/Chest: chest non-tender, lungs clear, normal breath sounds, no respiratory distress, no accessory muscle use Cardiovascular: regular rate, rhythm, no edema, no gallop, no JVD, no murmur, normal peripheral pulses Abdomen/GI: normal bowel sounds, non tender, soft, no organomegaly, no pulsatile mass Back: normal inspection, no CVA tenderness, no muscle spasm, normal range of motion Extremities/Musculoskelatal: normal inspection, no pedal edema, + pertinent finding (decreased range of motion of the left hip, tenderness/swelling, left foot is normal color, +2 pulses and pedal artery, normal capillary filling and sensation intact in toes) Neurologic/Psych: critical care nurse specialist II-XII nml as tested, no motor/sensory deficits, alert, normal mood/affect, normal reflexes, oriented x 3 Skin: normal color, warm/dry, no rash Diagnostics Laboratory Results Results Past 24 Hours Test 05/19/17 08:40 Range/Units White Blood Count 4.89 4.8-10.8 K/uL Red Blood Count 4.76 4.2-5.4 M/uL Hemoglobin 15.3 12.0-16.0 g/dL Hematocrit 44.8 37-47 % Mean Corpuscular Volume 94.1 80-100 fL Mean Corpuscular Hemoglobin 32.1 25-34 pg Mean Corpuscular Hemoglobin Concent 34.2 32-36 g/dl Platelet Count 225 130-400 K/uL Mean Platelet Volume 8.8 7.4-10.4 fL Neutrophils (%) (Auto) 55.5 % Lymphocytes (%) (Auto) 24.1 % Monocytes (%) (Auto) 10.6 % Eosinophils (%) (Auto) 8.8 % Basophils (%) (Auto) 0.8 % Neutrophils # (Auto) 2.71 1.4-6.5 K/uL Lymphocytes # (Auto) 1.18 1.2-3.4 K/uL Monocytes # (Auto) 0.52 0.11-0.59 K/uL Eosinophils # (Auto) 0.43 0-0.5 K/uL Basophils # (Auto) 0.04 0-0.2 K/uL RDW Standard Deviation 43.3 36.4-46.3 fL RDW Coefficient of Variation 12.5 11.5-14.5 % Immature Granulocyte % (Auto) 0.2 % Immature Granulocyte # (Auto) 0.01 0.00-0.02 K/uL Prothrombin Time 11.2 9.0-12.0 SECONDS Prothromb Time International Ratio 1.1 0.9-1.1 Activated Partial Thromboplast Time 24.3 21.0-31.0 SECONDS Partial Thromboplastin Ratio 0.9 Sodium Level 137 136-145 mmol/L Potassium Level 3.7 3.5-5.1 mmol/L Chloride Level 99 98-107 mmol/L Carbon Dioxide Level 28 21-32 mmol/L Anion Gap 10.0 3-11 mmol/L Blood Urea Nitrogen 18 7-18 mg/dl Creatinine 0.65 0.60-1.20 mg/dl Est Creatinine Clear Calc Drug Dose 48.7 ml/min Estimated GFR () 95.2 Estimated GFR (Non- 82.1 BUN/Creatinine Ratio 27.6 10-20 Random Glucose 81 70-99 mg/dl Calcium Level 9.4 8.5-10.1 mg/dl Impression Assessment and Plan 81 years old female with past medical history of hypertension and osteoporosis status post right hip replacement in the past. Patient had mechanical fall with left hip fracture. Assessment Left hip close fracture secondary to mechanical fall from ground level Osteoporosis likely leading to above-mentioned fracture as fall was minimal from ground level Hypertension History of asthma Osteoarthritis with history of right hip replacement 2 revisions in the past Depression/anxiety, controlled on medication Partial left bundle branch block, borderline QTC prolongation, incidental finding on EKG Plan Patient can go up to 3 flights of stairs without chest pain or shortness of breath, patient has no cardiac history She does have partial left bundle-branch block and borderline QTC prolongation that appears to be new since November 2016, will consult ac/dc rewinder for that, otherwise she has no chest pain or shortness of breath, from the medical aspect she is medically cleared for hip replacement. Serial cardiac enzymes were ordered. Appears to be stable Continue outpatient medications including blood pressure and depression medications Follow-up labs Ensure adequate oral/parenteral intake Pain management Physical therapy initiation as per primary orthopedic team DVT prophylaxis as per the choice of primary orthopedic team, but will start her on SOURAV hose and SCDs Patient has a part of her during her son , Cesar Ridley Level of Care Telemetry Resuscitation Status FULL RESUSCITATION VTE Prophylaxis VTE Risk Assessment Done? Y/N: Yes Risk Level: Moderate
--- NOTE | 2017-05-19 12:33 | Cardiology Consultation ---
Cardiology Consultation Date of Consultation: May 19, 2017. Attending Physician: Dr. Booth Reason for Consultation: Fall and hip fracture, incomplete left bundle branch block Pt evaluation today including: conversation w/ patient, physical exam, lab review, review of studies, review of inpatient medication list History of Present Illness This is a very pleasant and conversational 81-year-old woman who lives at [facility]. She went out to walk her dog this morning, stepped on a patch of "black ice" and fell on her left hip resulting in a fracture. She is very specific that she did not have any lightheadedness or dizziness, has been feeling well and just did not notice that there was ice, thinking it was water. She does however have a history of frequent falls, although she describes them all as mechanical falls with no hemodynamic symptoms. She has no known cardiovascular history, she does not have exertional symptoms of shortness of breath or chest discomfort, does not have palpitations. She tells me that she does not have lightheadedness or dizziness, presyncope or syncope. In the emergency room she is laying supine and having some left hip discomfort. Other than that she has no complaints. She is not short of breath lying supine, has not noticed any leg swelling or any other recent issues. Past Medical/Surgical History (1) Asthma, Unspecified (2) Hypertension Nos (3) Closed right hip fracture (4) Fracture of distal fibula Family History FH: cancer Social History Smoking Status: Never Smoker History of Alcohol Use: No Review of Systems Constitutional: No fever, No weight loss, No weakness Respiratory: No cough, No wheezing, No shortness of breath, No dyspnea on exertion Cardiac: No chest pain, No orthopnea, No PND, No edema, No palpitations Abdomen: No pain, No nausea, No vomiting, No diarrhea, No GI bleeding Female : No problem reported Neurologic: No paralysis, No weakness, No numbness/tingling, No balance problems Heme: No abnormal bleeding/bruising, No clotting problems Endo: No fatigue Skin: No problem reported Left hip pain since her fall All Other Systems: Reviewed and Negative Allergies Coded Allergies: [place] Seed (Unverified Allergy, Severe, ITCHING, SOB, 05/19/17) Iodinated Diagnostic Agents (Unverified Allergy, Intermediate, SHORTNESS OF BREATH, 05/19/17) CONFIRMED 08/11/2014 [place] Oil (Verified Allergy, Unknown, ITCHING,SHORTNESS OF BREATH, 03/24) Morphine (Verified Adverse Reaction, Unknown, GOT NAUSEATED AFTER 2ND SURGERY W/MSO4,NOTHING RELIEVED IT, 05/19/17) SEVERE NAUSEA Medications Current Inpatient Medications Medications (Trade) Dose Ordered Sig/Solo Route Start Time Stop Time Status Last Admin Dose Admin Lactated Ringer's 1,000 ml @ 75 mls/hr [id number] IV 05/19/17 08:28 06/18/17 08:27 05/19/17 09:00 75 MLS/HR Fentanyl Citrate (Fentanyl Inj) 50 mcg Q1HWA PRN IV 05/19/17 08:30 06/02/17 08:29 05/19/17 10:43 50 MCG Non-Formulary Medication (Sertraline HCl ) 25 mg QPM PO 05/19/17 21:00 06/18/17 20:59 UNV Sodium Chloride 1,000 ml @ 50 mls/hr Q20H IV 05/19/17 11:12 06/18/17 11:11 UNV Acetaminophen (Tylenol Tab) 650 mg Q4H PRN PO 05/19/17 11:15 06/18/17 11:14 Al Hydrox/Mg Hydrox/Simethicone (Maalox Max Susp) 15 ml Q4H PRN PO 05/19/17 11:15 06/18/17 11:14 Magnesium Hydroxide (Milk Of Magnesia Susp) 30 ml Q12H PRN PO 05/19/17 11:15 06/18/17 11:14 Zolpidem Tartrate (Ambien Tab) 5 mg HSZ PRN PO 05/19/17 11:15 06/18/17 11:14 Polyethylene (Miralax Powder Packet) 17 gm DAILY PRN PO 05/19/17 11:15 06/18/17 11:14 Hydralazine HCl (HydrALAZINE INJ) 10 mg Q6H PRN IV. 05/19/17 11:15 06/18/17 11:14 Lisinopril (Zestril Tab) 10 mg DAILY PO 05/20/17 09:00 06/19/17 08:59 UNV Hydromorphone HCl (Dilaudid Inj) 0.5 mg Q2H PRN IV 05/19/17 11:30 06/02/17 11:29 Physical Exam Vital Signs Past 12 Hours Date Time Temp Pulse Resp B/P (MAP) Pulse Ox O2 Delivery O2 Flow Rate FiO2 05/19/17 12:16 70 18 158/68 93 Room Air 05/19/17 11:32 100 Room Air 05/19/17 10:44 85 18 168/69 100 Room Air 05/19/17 09:46 77 16 176/73 97 Room Air 05/19/17 09:01 79 20 144/115 99 Room Air 05/19/17 08:40 36.7 85 20 228/62 100 Room Air 05/19/17 08:32 87 Constitutional: General Apperance: heathly-appearing Level of Distress: NAD Psychiatric: Mental Status: active & alert Head: normocephalic Eyes: EOM: EOMI ENMT: normal ENT inspection, hearing grossly normal Neck: supple, no masses Lungs: Respiratory effort: no dyspnea, good air movement Auscultation: breath sounds normal, no wheezing Cardiovascular: Heart Auscultation: RRR, no murmurs, no rubs, no gallops Peripheral Pulses: Bruits: none appreciated Abdomen: Bowel Sounds: normal Inspection & Palpation: soft, no tenderness, guarding & rebound, no masses Musculoskeletal: normal strength (5/5 throughout) Extremities: no edema Neurologic: Cranial Nerves: grossly intact Sensation: grossly intact Data Laboratory Results: Last 24 Hours Test 05/19/17 08:40 White Blood Count 4.89 K/uL Red Blood Count 4.76 M/uL Hemoglobin 15.3 g/dL Hematocrit 44.8 % Mean Corpuscular Volume 94.1 fL Mean Corpuscular Hemoglobin 32.1 pg Mean Corpuscular Hemoglobin Concent 34.2 g/dl Platelet Count 225 K/uL Mean Platelet Volume 8.8 fL Neutrophils (%) (Auto) 55.5 % Lymphocytes (%) (Auto) 24.1 % Monocytes (%) (Auto) 10.6 % Eosinophils (%) (Auto) 8.8 % Basophils (%) (Auto) 0.8 % Neutrophils # (Auto) 2.71 K/uL Lymphocytes # (Auto) 1.18 K/uL Monocytes # (Auto) 0.52 K/uL Eosinophils # (Auto) 0.43 K/uL Basophils # (Auto) 0.04 K/uL RDW Standard Deviation 43.3 fL RDW Coefficient of Variation 12.5 % Immature Granulocyte % (Auto) 0.2 % Immature Granulocyte # (Auto) 0.01 K/uL Prothrombin Time 11.2 SECONDS Prothromb Time International Ratio 1.1 Activated Partial Thromboplast Time 24.3 SECONDS Partial Thromboplastin Ratio 0.9 Sodium Level 137 mmol/L Potassium Level 3.7 mmol/L Chloride Level 99 mmol/L Carbon Dioxide Level 28 mmol/L Anion Gap 10.0 mmol/L Blood Urea Nitrogen 18 mg/dl Creatinine 0.65 mg/dl Est Creatinine Clear Calc Drug Dose 48.7 ml/min Estimated GFR () 95.2 Estimated GFR (Non- 82.1 BUN/Creatinine Ratio 27.6 Random Glucose 81 mg/dl Calcium Level 9.4 mg/dl Imaging: Borderline cardiomegaly, no acute changes. EKG: On arrival sinus rhythm at a rate of 85 bpm, incomplete left bundle branch block with a QRS duration 114 ms. Prior electrocardiograms, including from last year, did not show a left bundle branch block pattern. Telemetry reviewed: Sinus rhythm, no AV block Prior stress test: A stress echo was done 03/07/2015, the baseline echocardiogram was unremarkable and the stress test was negative for ischemia. She had a quite good workload, exercised for nearly 7 minutes on the Rick protocol with a heart rate of greater than 100% of her predicted maximal heart rate. The echocardiographic portion was negative for ischemia as well. Assessment & Plan #1. Left hip fracture: She has fallen and injured her left hip, the cause of the fall by her description is a mechanical fall from slipping on ice. I believe the hip needs to be repaired, although I don't believe she has been seen by orthopedic surgery as yet. #2. Frequent falls: She has frequent falls and numerous bone fractures, including rib fracture seen on x-ray, she describes mechanical events related to each of these injuries. She appears quite alert and oriented, but I can't exclude the possibility that she is transiently losing consciousness. That should not interfere with her surgery, however I think we should have some kind of monitoring while she is here in the hospital as well as afterwards to make sure she does not have transient arrhythmias causing her falls. She could have these arrhythmias and not be aware of them or remember them. I would proceed with surgery, she will of course be monitored during surgery for arrhythmias and I would continue monitoring afterwards. With lack of symptoms and a negative stress echo at a good workload just over 2 years ago I would not perform further cardiac testing at this time. We will continue to follow her after surgery.
[2017-05-19 14:00] VITALS: O2SAT 95
[2017-05-19] MEDS ORDERED: SODIUM CHLORIDE 0.9% 1000ML 1,000 ML IV SCH (15:00)
[2017-05-19 15:02] VITALS: BP 200/91; PULSE 96; TEMP 36.6; O2SAT 98
[2017-05-19] MEDS: HYDROmorphone INJ 0.5 MG/0.5 ML SYR IV PRN (15:31)
[2017-05-19] MEDS ORDERED: PROMETHAZINE HCL INJ 12.5 MG in SODIUM CHLORIDE 0.9% 50ML 50 ML IV PRN (16:30)
--- NOTE | 2017-05-19 17:46 | Anesthesiology Progress Note ---
Anesthesia Progress Note Date of Service May 19, 2017. Progress Notes The patient is an 81 y/o female scheduled for a L Bipolar Hip repair tomorrow. She fell on ice while walking her dog today with no LOC. She was noted to have an incomplete LBBB on her EKG but was seen by Dr. Burkett and thought to be an acceptable surgical risk due to her normal stress test from 2014 and her lack of cardiac symptoms. Other PMH includes asthma, HTN, mild MR, diastolic dysfunction, osteoporosis, and anxiety. The patient states that she gets PONV with general anesthesia and morphine. Her CXR shows emphysema. EKG shows NSR, incomplete LBBB, prolong QT, and abnormal QRS-T angle. Her echo from 2014 showed EF 60%, mild MR, diastolic dysfunction, and mild LVH. Labs were normal. On exam the patient was very pleasant. She had good neck ROM and was a MP 2 view with intact dentition. Lungs were clear and heart was RRR. Carotids were negative for bruits. She is an ASA 3. The patient was consented for spinal anesthetic with general anesthetic as a backup with +/- arterial line. She was counseled to remain NPO after midnight except for sips of water with pills.
[2017-05-19] MEDS: AMLODIPINE BESYLATE 5 MG TAB PO SCH (18:15)
[2017-05-19 18:16] VITALS: BP 165/74; PULSE 106
[2017-05-19 20:10] VITALS: BP 133/67; PULSE 104; TEMP 36.8; O2SAT 97
--- NOTE | 2017-05-19 20:11 | Orthopedic Consultation ---
Orthopedic Consultation Date of Consultation: May 19, 2017. Attending Physician: Vanessa Avelar MD Reason for Consultation: Left femoral neck fracture History of Present Illness Patient seen at bedside accompanied with son. Comfortable, denies pain at this time. Reports fall from standing height onto left hip and inability to bear weight today. Denies pain or injury to other extremities. Denies numbness or weakness to LLE. Past Medical/Surgical History Medical Problems: (1) Ambulatory dysfunction Status: Acute (2) Femoral neck fracture Status: Acute Family History FH: cancer Social History Smoking Status: Never Smoker Marital Status: Housing Status: lives with significant other Occupation Status: retired Allergies Coded Allergies: [place] Seed (Unverified Allergy, Severe, ITCHING, SOB, 05/19/17) Iodinated Diagnostic Agents (Unverified Allergy, Intermediate, SHORTNESS OF BREATH, 05/19/17) CONFIRMED 08/11/2014 [place] Oil (Verified Allergy, Unknown, ITCHING,SHORTNESS OF BREATH, 03/24) Morphine (Verified Adverse Reaction, Unknown, GOT NAUSEATED AFTER 2ND SURGERY W/MSO4,NOTHING RELIEVED IT, 05/19/17) SEVERE NAUSEA Home Medications Scheduled Alendronate Sodium (Alendronate Sodium), 70 MG PO WK Lisinopril (Zestril), 10 MG PO DAILY Sertraline HCl (Sertraline HCl), 25 MG PO QPM Scheduled PRN Acetaminophen (Tylenol), 650 MG PO Q4 PRN for Pain Current Inpatient Medications Current Inpatient Medications Medications (Trade) Dose Ordered Sig/Solo Route Start Time Stop Time Status Last Admin Dose Admin Sertraline HCl (Zoloft Tab) 25 mg QPM PO 05/19/17 21:00 06/18/17 20:59 Hydralazine HCl (HydrALAZINE INJ) 10 mg Q6H PRN IV. 05/19/17 11:15 06/18/17 11:14 05/19/17 15:31 10 MG Lisinopril (Zestril Tab) 10 mg DAILY PO 05/20/17 09:00 06/19/17 08:59 Hydromorphone HCl (Dilaudid Inj) 0.5 mg Q2H PRN IV 05/19/17 11:30 06/02/17 11:29 05/19/17 15:31 0.5 MG Promethazine HCl 12.5 mg/Sodium Chloride 50.5 ml @ 204 mls/hr Q6H PRN IV 05/19/17 16:30 06/18/17 16:29 05/19/17 18:32 204 MLS/HR Amlodipine Besylate (Norvasc Tab) 10 mg DAILY PO 05/19/17 16:30 06/18/17 16:29 05/19/17 18:15 10 MG Review of Systems ROS negative with the exception of those mentioned in the HPI above. Physical Exam Date Time Temp Pulse Resp B/P (MAP) Pulse Ox O2 Delivery O2 Flow Rate FiO2 05/19/17 18:16 106 165/74 (104) 05/19/17 15:02 36.6 96 20 200/91 (127) 98 Room Air 05/19/17 14:00 89 18 158/69 95 Room Air 05/19/17 13:00 79 18 154/63 95 Room Air 05/19/17 12:39 79 05/19/17 12:16 70 18 158/68 93 Room Air 05/19/17 11:32 100 Room Air 05/19/17 10:44 85 18 168/69 100 Room Air 05/19/17 09:46 77 16 176/73 97 Room Air 05/19/17 09:01 79 20 144/115 99 Room Air 05/19/17 08:40 36.7 85 20 228/62 100 Room Air 05/19/17 08:32 87 NAD, AOx3 B/L LE, NVSI +EHL/FHL/TA/GS SILT grossly, CR< 2 secondsy, + 2 DP pulse, compartment soft, NT, skin intact. [place] traction in place. B/L UE NVSI + M/R/U/AIN/PIN, SILT grossly, 5/5 gripe strength, + 2 radial pulse. Laboratory Results Last 24 Hours Test 05/19/17 08:40 05/19/17 17:34 White Blood Count 4.89 K/uL Red Blood Count 4.76 M/uL Hemoglobin 15.3 g/dL Hematocrit 44.8 % Mean Corpuscular Volume 94.1 fL Mean Corpuscular Hemoglobin 32.1 pg Mean Corpuscular Hemoglobin Concent 34.2 g/dl Platelet Count 225 K/uL Mean Platelet Volume 8.8 fL Neutrophils (%) (Auto) 55.5 % Lymphocytes (%) (Auto) 24.1 % Monocytes (%) (Auto) 10.6 % Eosinophils (%) (Auto) 8.8 % Basophils (%) (Auto) 0.8 % Neutrophils # (Auto) 2.71 K/uL Lymphocytes # (Auto) 1.18 K/uL Monocytes # (Auto) 0.52 K/uL Eosinophils # (Auto) 0.43 K/uL Basophils # (Auto) 0.04 K/uL RDW Standard Deviation 43.3 fL RDW Coefficient of Variation 12.5 % Immature Granulocyte % (Auto) 0.2 % Immature Granulocyte # (Auto) 0.01 K/uL Prothrombin Time 11.2 SECONDS Prothromb Time International Ratio 1.1 Activated Partial Thromboplast Time 24.3 SECONDS Partial Thromboplastin Ratio 0.9 Sodium Level 137 mmol/L Potassium Level 3.7 mmol/L Chloride Level 99 mmol/L Carbon Dioxide Level 28 mmol/L Anion Gap 10.0 mmol/L Blood Urea Nitrogen 18 mg/dl Creatinine 0.65 mg/dl Est Creatinine Clear Calc Drug Dose 48.7 ml/min Estimated GFR () 95.2 Estimated GFR (Non- 82.1 BUN/Creatinine Ratio 27.6 Random Glucose 81 mg/dl Calcium Level 9.4 mg/dl Total Creatine Kinase 235 U/L Troponin I 0.024 ng/ml Assessment & Plan Left displaced femoral neck fracture. -I had a long discussion with the patient and family in regards to the patients diagnosis and treatment options. The patient will need a left hip hemiarthroplasty. Maintain NPO after midnight, hold anticoagulation, maintain bucks traction for pain control and bedrest, kennedy placement. Will need medical clearance. Plan for surgery 05/20/17 pending surgeon and OR availability. The patient and family were agreeable to the treatment plan. Thank you for the consultation. L FEMUR 2 VIEWS ROUTINE CLINICAL HISTORY: Left proximal femur fx COMPARISON: Pelvis and left hip radiographs performed earlier today. FINDINGS: Note is made of a markedly comminuted, moderately displaced left femoral neck fracture that extends to the intertrochanteric region. Associated angulation at the level of the fracture is noted. No additional left femoral fractures are noted. Lateral view demonstrates a suspected small left knee joint effusion. IMPRESSION: 1. Markedly comminuted, moderately displaced left femoral neck fracture that extends to the intertrochanteric region. 2. No additional left femoral fractures. Suspected small left knee joint effusion. L PELVIS/UNILATERAL HIP 2-3VIEWS CLINICAL HISTORY: Fall. Left hip pain. COMPARISON: Pelvis radiograph July 08, 2015. FINDINGS: There is an impacted, moderately displaced and comminuted left femoral neck fracture. Associated angulation at the level of the fracture is noted. A right hip arthroplasty is in place as well as a lower lumbar spine discectomy and fusion. Sacroiliac joints and symphysis pubis are intact. IMPRESSION: Acute moderately displaced comminuted impacted left femoral neck fracture.
[2017-05-19] MEDS: SERTRALINE HCL 50 MG TAB PO SCH (22:39)
[2017-05-19 22:50] VITALS: BP 138/55; PULSE 101; TEMP 36.6; O2SAT 94
[2017-05-20] VITALS (7 sets, daily range): BP systolic 110–161; BP diastolic 49–71; PULSE 87–103; TEMP 36.7–37; O2SAT 86–94; Ht 157.5 cm; Wt 47.0 kg
[2017-05-20] MEDS: HYDROmorphone INJ 0.5 MG/0.5 ML SYR IV PRN ×3 (00:04→11:41)
[2017-05-20] MEDS ORDERED: ROPIVACAINE 5MG/ML 30 ML 150 MG, BUPIVACAINE 0.5% MPF INJ 30 ML, EpINEphrine HCL INJ 0.... INFIL SCH ×8 (06:00)
[2017-05-20 06:17] LABS: BASO % 0.3 %; BASO ABS # 0.02 K/uL (0-0.2); EOS % 0.2 %; EOS ABS # 0.01 K/uL (0-0.5); HEMATOCRIT 32.9 % (37-47); IG# 0.01 K/uL (0.00-0.02); LYMPH % 7.2 %; LYMPH ABS # 0.46 K/uL (1.2-3.4); MEAN CELL VOLUME 94.5 fL (80-100); MEAN CORPUSCULAR HEMOGLOBIN 31.6 pg (25-34); MEAN CORPUSCULAR HGB CONC 33.4 g/dl (32-36); MEAN PLATELET VOLUME 8.8 fL (7.4-10.4); MONO ABS # 0.83 K/uL (0.11-0.59); NEUT % 79.1 %; NEUT ABS # 5.04 K/uL (1.4-6.5); PLATELET COUNT 172 K/uL (130-400); RED CELL DISTRIBUTION WIDTH CV 13.1 % (11.5-14.5); RED CELL DISTRIBUTION WIDTH SD 45.2 fL (36.4-46.3); WHITE BLOOD COUNT 6.37 K/uL (4.8-10.8)
[2017-05-20 06:39] LABS: ALBUMIN 3.2 gm/dl (3.4-5.0); CALCIUM 7.5 mg/dl (8.5-10.1); CREATININE 0.44 mg/dl (0.60-1.20); POTASSIUM 3.7 mmol/L (3.5-5.1); TOTAL PROTEIN 5.5 gm/dl (6.4-8.2)
[2017-05-20] MEDS ORDERED: LISINOPRIL 10 MG TAB PO SCH (09:00)
[2017-05-20] MEDS: AMLODIPINE BESYLATE 5 MG TAB PO SCH (09:17)
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
--- NOTE | 2017-05-20 09:54 | Clinical Documentation Query ---
MIRIAN Dumont : CLINICAL DOCUMENTATION QUERIES QUERY 1 OF 2 Patient is an 81 year old female admitted s/p mechanical fall for comminuted, displaced left femoral neck fracture. Admission H&H was 15.3 g/dl and 44.8%. This a.m. (05/20), repeat values are 11.0 g/dl and 32.9%. I/O balanced to negative at this time. She is being monitored with serial hematology and operative repair is pending. In your clinical opinion is this patient being managed for: ( ) Acute blood loss anemia ( ) Not Agree ( ) Other explanation of clinical findings (Please Explain) ( ) Unable to determine (Please Define) ( ) Need to Discuss The medical record reflects the following clinical findings, treatment, and risk factors. Clinical Indicators: As above Treatment:She is being monitored with serial hematology and operative repair is pending. Risk Factors: Trauma associated with fall/fracture QUERY 2 OF 2 BMI noted to be 18.9 kg/m*m per nursing documentation. In order to capture this clinical information from the record, either the BMI and/or the associated clinical condition must explicitly be documented by the provider. As appropriate, consider documentation as suggested below. Thank you. In your clinical opinion is this patient: ( ) Underweight, BMI 18.9 kg/m*m ( ) Not Agree ( ) Other explanation of clinical findings (Please Explain) ( ) Unable to determine (Please Define) ( ) Need to Discuss The medical record reflects the following clinical findings, treatment, and risk factors. Clinical Indicators: As above Treatment: Regular diet Risk Factors: Age, poor intake Please clarify and document your clinical opinion in the progress notes and discharge summary. Terms such as "probable", "suspected", "likely", "questionable", "possible", or "still to be ruled out" are acceptable. IF IN AGREEMENT, YOU MUST DOCUMENT ABOVE DIAGNOSTIC STATEMENT IN DAILY PROGRESS NOTES AND DISCHARGE SUMMARY. This document is not part of the patient's record. Thank You, Irwin Phillips, ROBERTO [phone]
[2017-05-20] MEDS: D5NSS + 20MEQ KCL 1,000 ML IV SCH ×2 (11:39→23:43)
--- NOTE | 2017-05-20 12:57 | ECHOCARDIOGRAM REPORT ---
*NOTICE TO RECEIVING LIBERTARIAN AGENCY This information is strictly Confidential and protected under [place] law. [place] law prohibits you from making any further disclosure of this information unless further disclosure is expressly permitted by the written consent of the person to whom it pertains or is authorized by law. A general authorization for the release of medical or other information is not sufficient for this purpose. Hospital accepts no responsibility if the information is made available to any other person, INCLUDING THE PATIENT. Interpretation Summary * Name: CLARK BAZZI Study Date: 05/20/2017 10:11 AM BP: 144/61 mmHg * Patient Location: .MSN\S\N378\S\2 HR: 90 * : 1935 (M/d/yyyy) Gender: Female Height: 62 in * Age: 81 yrs Ethnicity: CA Weight: 103 lb * Ordering Physician: Riley Burkett * Referring Physician: Vince Snell * Performed By: Krystle Soto RCS * * Reason For Study: PRE-OP / ELEVATED TROPONIN / NEW CONDUCTION ABNORMALITY * BSA: 1.4 m2 * -- Conclusions -- * 1. Normal LV size, mild concentric LVH. * 2. Normal LV systolic function. LVEF 60-65%. No regional wall motion abnormalities. Grade I diastolic dysfunction. * 3. Normal RV size and function. * 4. Aortic vavle sclerosis without stenosis. Mild aortic regurgitation. * 5. Mild mitral regurgitiation * 6. Mild TR. Moderate pulmonary hypertension. Est PASP 55-60mmHg. * 7. Compared with prior study on 03/07/2015: Aortic regurgitation is slightly worse. Moderate PH is new. Procedure Details * A complete two-dimensional transthoracic echocardiogram was performed (2D, M-mode, Doppler and color flow Doppler). Left Ventricle * The left ventricle is grossly normal size. * There is mild concentric left ventricular hypertrophy. * Ejection Fraction = 60-65%. * No regional wall motion abnormalities noted. Right Ventricle * The right ventricle is grossly normal size. * The right ventricular systolic function is normal as assessed by tricuspid annular plane systolic excursion (TAPSE) (normal >1.5 cm). Atria * Borderline left atrial enlargement. * Borderline right atrial enlargement. Mitral Valve * The mitral valve leaflets appear thickened, but open well. * There is no mitral valve stenosis. * There is mild mitral regurgitation. Tricuspid Valve * The tricuspid valve is not well visualized, but is grossly normal. * Tricuspid stenosis is absent. * There is mild tricuspid regurgitation. * Right ventricular systolic pressure is elevated at 50-60mmHg. Aortic Valve * Aortic valve sclerosis mild, without significant aortic valvular stenosis. * There is discrete nodular thickening of the non- coronary cusp. * No hemodynamically significant valvular aortic stenosis. * Mild aortic regurgitation. Pulmonic Valve * The pulmonary valve is inadequately visualized, but the Doppler data is adequate for interpretation. * Pulmonic stenosis is absent. * There is no significant pulmonary regurgitation. Great Vessels * The aortic root and proximal ascending aorta are normal sized. Pericardium/Pleural * There is no pericardial effusion. Great Vessels * Normal inferior vena cava size and collapsability with sniff indicates a normal right atrial pressure of 3 mmHg Left Ventricular Diastolic Function * Grade I diastolic dysfunction, (abnormal relaxation pattern). MMode 2D Measurements and Calculations IVSd 1.3 cm IVSs 1.5 cm LVIDd 2.8 cm LVIDs 2.3 cm LVPWd 1.1 cm LVPWs 1.1 cm IVS/LVPW 1.2 FS 17.3 % EDV(Teich) 28.3 ml ESV(Teich) 17.7 ml EF(Teich) 37.6 % EDV(cubed) 20.8 ml ESV(cubed) 11.8 ml EF(cubed) 43.4 % % IVS thick 19.6 % % LVPW thick -2.04 % LV mass(C)d 96.3 grams LV mass(C)dI 66.8 grams/m\S\2 LV mass(C)s 88.3 grams LV mass(C)sI 61.3 grams/m\S\2 SV(Teich) 10.7 ml SI(Teich) 7.4 ml/m\S\2 SV(cubed) 9.0 ml SI(cubed) 6.3 ml/m\S\2 Ao root diam 2.7 cm Ao root area 5.5 cm\S\2 LA dimension 3.7 cm LA/Ao 1.4 LVOT diam 2.0 cm LVOT area 3.1 cm\S\2 LVAd ap4 27.5 cm\S\2 LVLd ap4 7.9 cm EDV(MOD-sp4) 79.6 ml EDV(sp4-el) 81.5 ml LVAs ap4 20.7 cm\S\2 LVLs ap4 6.8 cm ESV(MOD-sp4) 52.0 ml ESV(sp4-el) 53.7 ml EF(MOD-sp4) 34.7 % EF(sp4-el) 34.1 % LVAd ap2 28.4 cm\S\2 LVLd ap2 7.7 cm EDV(MOD-sp2) 82.1 ml EDV(sp2-el) 88.8 ml LVAs ap2 18.9 cm\S\2 LVLs ap2 6.9 cm ESV(MOD-sp2) 40.7 ml ESV(sp2-el) 44.0 ml EF(MOD-sp2) 50.4 % EF(sp2-el) 50.4 % LVLd %diff -1.91 % EDV(MOD-bp) 80.2 ml LVLs %diff 1.8 % ESV(MOD-bp) 47.0 ml EF(MOD-bp) 41.4 % SV(MOD-sp4) 27.6 ml SI(MOD-sp4) 19.2 ml/m\S\2 SV(MOD-sp2) 41.4 ml SI(MOD-sp2) 28.7 ml/m\S\2 SV(MOD-bp) 33.2 ml SI(MOD-bp) 23.0 ml/m\S\2 SV(sp4-el) 27.7 ml SI(sp4-el) 19.2 ml/m\S\2 SV(sp2-el) 44.8 ml SI(sp2-el) 31.1 ml/m\S\2 Doppler Measurements and Calculations MV E max florinda 93.8 cm/sec MV A max florinda 145.6 cm/sec MV E/A 0.64 MV P1/2t max florinda 98.1 cm/sec MV P1/2t 44.4 msec MVA(P1/2t) 5.0 cm\S\2 MV dec slope 647.9 cm/sec\S\2 MV dec time 0.15 sec Ao V2 max 158.8 cm/sec Ao max PG 10.1 mmHg Ao max PG (full) 0.71 mmHg JEAN PIERRE(V,A) 3.0 cm\S\2 JEAN PIERRE(V,D) 3.0 cm\S\2 AI max florinda 416.5 cm/sec AI max PG 69.4 mmHg AI dec slope 260.5 cm/sec\S\2 AI P1/2t 468.2 msec LV V1 max PG 9.4 mmHg LV V1 max 153.1 cm/sec PA V2 max 98.1 cm/sec PA max PG 3.9 mmHg TR max florinda 359.8 cm/sec
[2017-05-20] MEDS ORDERED: ORTHO JOINT ANESTHETIC ONE (15:33)
[2017-05-20] MEDS ORDERED: BACITRACIN 50000 UNIT VIAL ONE (15:34)
[2017-05-20] MEDS ORDERED: POVIDONE-IODINE OP SOLN 30 ML BTL ONE (15:34)
[2017-05-20] MEDS ORDERED: FENTANYL CITRATE INJ 50 MCG/1 ML 2 ML VIAL ONE ×3 (15:46→19:48)
[2017-05-20] MEDS ORDERED: MIDAZOLAM HCL 1 MG/ML 2ML VIAL ONE ×3 (15:46→18:19)
[2017-05-20] MEDS ORDERED: BUPIVACAINE 0.5 % 5 MG/1 ML PF 10ML VIAL ONE (16:26)
[2017-05-20] MEDS ORDERED: FENTANYL CITRATE INJ 50 MCG/1 ML 2 ML VIAL IV PRN (16:30)
[2017-05-20] MEDS ORDERED: EpHEDrine SULFATE INJ 50 MG/ML AMP IV PRN (16:30)
[2017-05-20] MEDS ORDERED: ATROPINE SULFATE 0.1 MG/ML 5ML SYR IV PRN (16:30)
[2017-05-20] MEDS ORDERED: NURSING VERBAL MED ORDER ONE (16:30)
[2017-05-20] MEDS ORDERED: ONDANSETRON INJ 2 MG/ML 2 ML VIAL IV PRN ×2 (16:30→20:30)
[2017-05-20] MEDS ORDERED: KETAMINE HCL INJ 50 MG/ML 10 ML VIAL ONE (16:34)
[2017-05-20] MEDS ORDERED: CEFAZOLIN SOD 1000MG/7.5 ML IV PUSH IV ONE (16:34)
--- NOTE | 2017-05-20 16:35 | Orthopedic Progress Note ---
Orthopedic Progress Note Date of Service May 20, 2017. Subjective Additional Notes: Patient seen in the pre operative holding area, comfortable, no acute issues, pain well controlled Objective LLE: SILT grossly, short and externally rotated, +2 DP pulse, compartments soft , skin intact, ROM deferred for fracture. Date Time Temp Pulse Resp B/P (MAP) Pulse Ox O2 Delivery O2 Flow Rate FiO2 05/20/17 15:18 36.7 94 22 149/68 (95) 90 Room Air 05/20/17 11:56 36.8 94 18 144/49 (80) 92 Room Air 05/20/17 07:30 Room Air 05/20/17 06:50 36.8 87 18 144/61 (88) 94 Room Air 05/20/17 03:13 37.0 98 14 161/71 (101) 94 Room Air 05/20/17 00:15 Room Air 05/20/17 00:15 103 05/19/17 22:50 36.6 101 16 138/55 (82) 94 Room Air 05/19/17 20:10 36.8 104 18 133/67 (89) 97 Room Air 05/19/17 18:16 106 165/74 (104) 05/19/17 17:15 Room Air Laboratory Results 24 Hours: Test 05/20/17 05:34 White Blood Count 6.37 K/uL Red Blood Count 3.48 M/uL Hemoglobin 11.0 g/dL Hematocrit 32.9 % Mean Corpuscular Volume 94.5 fL Mean Corpuscular Hemoglobin 31.6 pg Mean Corpuscular Hemoglobin Concent 33.4 g/dl Platelet Count 172 K/uL Mean Platelet Volume 8.8 fL Neutrophils (%) (Auto) 79.1 % Lymphocytes (%) (Auto) 7.2 % Monocytes (%) (Auto) 13.0 % Eosinophils (%) (Auto) 0.2 % Basophils (%) (Auto) 0.3 % Neutrophils # (Auto) 5.04 K/uL Lymphocytes # (Auto) 0.46 K/uL Monocytes # (Auto) 0.83 K/uL Eosinophils # (Auto) 0.01 K/uL Basophils # (Auto) 0.02 K/uL Assessment & Plan Assessment: Left displaced femoral neck fracture Plan: 81 year-old female with displaced left femoral neck fracture sustained after a fall. The patient was medically stabilized on 05/20/2017. I indicated the patient for left hip hemiarthroplasty. The patient and family were informed of the risks and benefits of surgery, which included but not limited to infection , bleeding, blood clots, damage to nerves, vessels, bone and soft tissue, dislocation, leg length discrepancy, need for additional surgery and . The patients family collectively chose to move forward with surgical intervention and informed consent was obtained. Per cardiology the patient will go to telemetry monitoring postoperatively.
[2017-05-20] MEDS ORDERED: LIDOCAINE HCL 2% 2 ML VIAL (20MG/ML) ONE (17:37)
[2017-05-20] MEDS ORDERED: PHENYLEPHRINE 100MCG/ML 5ML SYR ONE (17:37)
[2017-05-20] MEDS ORDERED: PROPOFOL IV EMULSION 10 MG/ML 20 ML VIAL IV ONE (17:37)
--- NOTE | 2017-05-20 17:37 | Progress Note ---
Subjective Date of Service: May 20, 2017. Subjective Pt evaluation today including: conversation w/ patient, conversation w/ family (son at bedside), physical exam, chart review, lab review, review of studies ( echo), conversation w/ senior product consultant (orthopedics ), review of inpatient medication list Pain: left hip - mod-severe PO Intake: npo Voiding: kennedy catheter in place patient denies any dyspnea, orthopnea, chest pain denies any asthma symptoms she is thirsty Problem List Medical Problems: (1) Ambulatory dysfunction Status: Acute (2) Femoral neck fracture Status: Acute Review of Systems Constitutional: No fever Respiratory: No cough Cardiac: No chest pain, No orthopnea Abdomen: No pain, No nausea, No vomiting Objective Vital Signs Date Time Temp Pulse Resp B/P (MAP) Pulse Ox O2 Delivery O2 Flow Rate FiO2 05/20/17 15:18 36.7 94 22 149/68 (95) 90 Room Air 05/20/17 11:56 36.8 94 18 144/49 (80) 92 Room Air 05/20/17 07:30 Room Air 05/20/17 06:50 36.8 87 18 144/61 (88) 94 Room Air 05/20/17 03:13 37.0 98 14 161/71 (101) 94 Room Air 05/20/17 00:15 Room Air 05/20/17 00:15 103 05/19/17 22:50 36.6 101 16 138/55 (82) 94 Room Air 05/19/17 20:10 36.8 104 18 133/67 (89) 97 Room Air 05/19/17 18:16 106 165/74 (104) Physical Exam General Appearance: no apparent distress, + thin ENT: + pertinent finding (MM dry) Neck: no JVD Respiratory/Chest: lungs clear, no respiratory distress, no accessory muscle use Cardiovascular: regular rate, rhythm, no gallop, no murmur Abdomen: normal bowel sounds, non tender, soft, no organomegaly Extremities: no pedal edema, + swelling (left thigh/hip) Neurologic/Psychiatric: alert, oriented x 3 Laboratory Results Last 24 Hours Test 05/19/17 17:34 05/19/17 23:32 05/20/17 05:34 05/20/17 12:11 Troponin I 0.024 ng/ml 0.054 ng/ml 0.060 ng/ml 0.054 ng/ml White Blood Count 6.37 K/uL Red Blood Count 3.48 M/uL Hemoglobin 11.0 g/dL Hematocrit 32.9 % Mean Corpuscular Volume 94.5 fL Mean Corpuscular Hemoglobin 31.6 pg Mean Corpuscular Hemoglobin Concent 33.4 g/dl Platelet Count 172 K/uL Mean Platelet Volume 8.8 fL Neutrophils (%) (Auto) 79.1 % Lymphocytes (%) (Auto) 7.2 % Monocytes (%) (Auto) 13.0 % Eosinophils (%) (Auto) 0.2 % Basophils (%) (Auto) 0.3 % Neutrophils # (Auto) 5.04 K/uL Lymphocytes # (Auto) 0.46 K/uL Monocytes # (Auto) 0.83 K/uL Eosinophils # (Auto) 0.01 K/uL Basophils # (Auto) 0.02 K/uL RDW Standard Deviation 45.2 fL RDW Coefficient of Variation 13.1 % Immature Granulocyte % (Auto) 0.2 % Immature Granulocyte # (Auto) 0.01 K/uL Sodium Level 134 mmol/L Potassium Level 3.7 mmol/L Chloride Level 101 mmol/L Carbon Dioxide Level 26 mmol/L Anion Gap 7.0 mmol/L Blood Urea Nitrogen 17 mg/dl Creatinine 0.44 mg/dl Est Creatinine Clear Calc Drug Dose 71.9 ml/min Estimated GFR () 108.2 Estimated GFR (Non- 93.3 BUN/Creatinine Ratio 38.6 Random Glucose 88 mg/dl Calcium Level 7.5 mg/dl Total Bilirubin 0.7 mg/dl Aspartate Amino Transf (AST/SGOT) 24 U/L Alanine Aminotransferase (ALT/SGPT) 25 U/L Alkaline Phosphatase 29 U/L Total Creatine Kinase 208 U/L Total Protein 5.5 gm/dl Albumin 3.2 gm/dl Globulin 2.3 gm/dl Albumin/Globulin Ratio 1.4 Assessment and Plan 81yo female - 1. left hip fracture 2nd to mechanical fall without presyncope or syncope - to OR today for ORIF. Agree w/ Dr. Burkett to place her on telemetry following her procedure to ensure no dysrhythmia that could have precipitated her fall. From medical standpoint she is optimized. 2. FEN - while NPO start D5NS w/ KCL at 80cc/hr. BMP in am. 3. asthma - not in exacerbation at this time. 4. HTN - would hold TAI post-op until creatinine is checked and found to be stable. 5. mild-moderate protein calorie malnutrition - she has low BMI and low albumin. Will speak with her about whether she has been losing weight, etc. Will add boost and MVI starting tomorrow. Vitamin D level was checked in 11/2016 and was very normal. 6. acute blood loss anemia - 4 gram drop overnight. Suspect bleeding into the soft tissue of the left hip. She could have been mildly volume contracted at presentation and some of the drop could be dilutional from fluids as well. CBC in am. 7. DVT proph - per orthopedics. 8. mood disorder - zoloft. 9. pulmonary HTN - as seen on echo today. Uncertain etiology. O2 sats are wnl. 10. positive troponin - likely myocardial demand ischemia / type 2 MN in setting of #1 above. Son updated at bedside Continued [facility] stay due to: inadequate po fluid intake, ambulation difficulties , multiple IV medications needed Discharge planning: rehab hospital
[2017-05-20] MEDS ORDERED: ALBUMIN HUMAN 5% 12.5 GM/250 ML VIAL IV ONE (18:26)
--- NOTE | 2017-05-20 20:25 | [facility] Post Operative Brief Note ---
Immediate Operative Summary Operative Date May 20, 2017. Pre-Operative Diagnosis Left displaced femoral neck fracture Post-Operative Diagnosis Left displaced femoral neck fracture Procedure(s) Performed Left Hip Bipolar Hemiarthroplasty Surgeon Dr. Ayon Eyeglass Maker Surgeon(s) Jason Kraft PA-C Estimated Blood Loss 400cc Findings Consistent with Post-Op Diagnosis Fluids (cc crystalloids) 1500 LR, 250 albumin Specimens A. Left femoral head Drains None Anesthesia Type MAC Spinal Regional Complication(s) none Disposition Disposition: Recovery Room / PACU
[2017-05-20] MEDS ORDERED: SODIUM CHLORIDE 0.9% 1000ML 1,000 ML IV SCH (20:29)
[2017-05-20] MEDS ORDERED: NALOXONE HCL 0.4 MG/1 ML VIAL/CARP IV PRN (20:30)
[2017-05-20] MEDS ORDERED: TRAMADOL HCL 50 MG TAB PO PRN (20:30)
--- NOTE | 2017-05-20 20:47 | Anesthesiology Progress Note ---
Anesthesia Post Op Note Date & Time May 20, 2017 at 20:47 Vital Signs Pain Intensity: 5.0 Vital Signs Past 12 Hours Date Time Temp Pulse Resp B/P (MAP) Pulse Ox O2 Delivery O2 Flow Rate FiO2 05/20/17 15:20 Room Air 05/20/17 15:18 36.7 94 22 149/68 (95) 90 Room Air 05/20/17 11:56 36.8 94 18 144/49 (80) 92 Room Air Notes Mental Status: alert / awake / arousable, participated in evaluation Pt Amnestic to Procedure: Yes Nausea / Vomiting: adequately controlled Pain: adequately controlled Airway Patency, RR, SpO2: stable & adequate BP & HR: stable & adequate Hydration State: stable & adequate Neuraxial Anesthesia: was administered, sensory block is resolving Anesthetic Complications: no major complications apparent
[2017-05-20] MEDS ORDERED: DOCUSATE SODIUM/SENNA 50/8.6MG TAB PO SCH (21:00)
[2017-05-20] MEDS ORDERED: OXYCODONE HCL IR 5 MG TAB (IMMEDIATE RELEASE) PO PRN (21:00)
[2017-05-20] MEDS ORDERED: ASPIRIN/ALUM/MAGNES/CAL CARB 325 MG TAB PO SCH (21:00)
--- NOTE | 2017-05-20 21:15 | DIAGNOSTIC IMAGING REPORT ---
L HIP UNILATERAL 2 VIEWS CLINICAL HISTORY: 81 years-old Female presenting with s/p Left hip hemiarthroplasty. TECHNIQUE: Frontal and crosstable lateral views of the left hip were obtained. COMPARISON: 05/19/2017. FINDINGS: There has been interval total left hip arthroplasty and cerclage wire placement for the comminuted left femoral neck fracture. Expected soft tissue emphysema and soft tissue swelling. Skin sam noted. No hardware complication. IMPRESSION: Expected postsurgical appearance status post total left hip arthroplasty. Electronically signed by: Ottoniel Serna M.D. 05/20/2017 9:13 PM Dictated Date/Time: 05/20/2017 9:12 PM
--- NOTE | 2017-05-20 22:05 | Orthopedic Progress Note ---
Orthopedic Progress Note Date of Service May 20, 2017. Subjective Additional Notes: Post operative progress note Patient seen in PACU, comfortable, pain well controlled, no acute issues. Objective NAD, AOx3 LLE: NVSI +EHL/FHL/TA/GS, SILT grossly, CR< 2 seconds, compartments soft NT, dressing CDI Date Time Temp Pulse Resp B/P (MAP) Pulse Ox O2 Delivery O2 Flow Rate FiO2 05/20/17 21:30 90 15 119/53 95 Nasal Cannula 4 05/20/17 21:20 37.1 95 14 116/52 97 Nasal Cannula 4 05/20/17 21:10 91 20 120/53 94 Nasal Cannula 4 05/20/17 21:00 90 16 119/53 94 Room Air 05/20/17 20:50 38.1 92 12 108/55 93 Room Air 05/20/17 15:20 Room Air 05/20/17 15:18 36.7 94 22 149/68 (95) 90 Room Air 05/20/17 11:56 36.8 94 18 144/49 (80) 92 Room Air 05/20/17 07:30 Room Air 05/20/17 06:50 36.8 87 18 144/61 (88) 94 Room Air 05/20/17 03:13 37.0 98 14 161/71 (101) 94 Room Air 05/20/17 00:15 Room Air 05/20/17 00:15 103 05/19/17 22:50 36.6 101 16 138/55 (82) 94 Room Air Laboratory Results 24 Hours: Test 05/20/17 05:34 White Blood Count 6.37 K/uL Red Blood Count 3.48 M/uL Hemoglobin 11.0 g/dL Hematocrit 32.9 % Mean Corpuscular Volume 94.5 fL Mean Corpuscular Hemoglobin 31.6 pg Mean Corpuscular Hemoglobin Concent 33.4 g/dl Platelet Count 172 K/uL Mean Platelet Volume 8.8 fL Neutrophils (%) (Auto) 79.1 % Lymphocytes (%) (Auto) 7.2 % Monocytes (%) (Auto) 13.0 % Eosinophils (%) (Auto) 0.2 % Basophils (%) (Auto) 0.3 % Neutrophils # (Auto) 5.04 K/uL Lymphocytes # (Auto) 0.46 K/uL Monocytes # (Auto) 0.83 K/uL Eosinophils # (Auto) 0.01 K/uL Basophils # (Auto) 0.02 K/uL Assessment & Plan Assessment: s/p Left hip CRC hemiarthroplasty Plan: -Ancef x 24 -DVT ppx: ASA BID -Telemetry post op for monitoring per cardio -WBAT LLE -Posterior hip precautions -Abduction precautions -PT/OT -PO XR - well fixed well aligned prothesis without fracture or dislocation -AM labs
[2017-05-20] MEDS: SERTRALINE HCL 50 MG TAB PO SCH (23:43)
[2017-05-21] VITALS (14 sets, daily range): BP systolic 123–192; BP diastolic 54–77; PULSE 84–106; TEMP 37.8–37.9; O2SAT 92–100
[2017-05-21] MEDS ORDERED: CEFAZOLIN IV 1,000 MG in DEXTROSE 5% 50ML 50 ML IV SCH ×2
[2017-05-21] MEDS ORDERED: CEFAZOLIN IV 1,000 MG in SYRINGE 0 ML IV SCH
[2017-05-21 04:51] LABS: HEMATOCRIT 23.4 % (37-47); MEAN CORPUSCULAR HEMOGLOBIN 32.1 pg (25-34); MEAN CORPUSCULAR HGB CONC 34.2 g/dl (32-36); MEAN PLATELET VOLUME 8.6 fL (7.4-10.4); PLATELET COUNT 161 K/uL (130-400); RED CELL DISTRIBUTION WIDTH CV 12.9 % (11.5-14.5); RED CELL DISTRIBUTION WIDTH SD 44.2 fL (36.4-46.3); WHITE BLOOD COUNT 9.29 K/uL (4.8-10.8)
[2017-05-21 04:57] LABS: CALCIUM 7.2 mg/dl (8.5-10.1); CREATININE 0.55 mg/dl (0.60-1.20); POTASSIUM 4.4 mmol/L (3.5-5.1)
[2017-05-21] MEDS ORDERED: ASPIRIN 300 MG SUPP PR ONE (05:00)
--- NOTE | 2017-05-21 05:19 | Discharge Instructions ---
Discharge Instructions Date of Service May 21, 2017. Admission Reason for Admission: Closed Left Hip Fracture Discharge Discharge Diagnosis / Problem: Left HIp Fracture, CVA Discharge Goals Goal(s): Decrease discomfort, Improve function, Increase independence, Improve disease control, Improve nutritional status, Learn about illness, Diagnostic testing, Therapeutic intervention, Screening, Prevent Disease Progression, Specific goals Activity Recommendations Activity Level: Assistance Required . Additional Information Patient informed of condition: Yes Advance Directives: Yes DNR: Yes Level of Care: Skilled Communicable Disease: No Prognosis: Stable Current Hospital Diet Patient's current hospital diet: Regular Diet Discharge Diet Recommended Diet: Regular Diet Procedures Procedures Performed: Left Hip Bipolar Hemiarthroplasty Pending Studies Studies pending at discharge: no Laboratory Results Lipid Panel Test 04/21/17 07:15 Range/Units Triglycerides Level 66 0-150 mg/dl Cholesterol Level 188 0-200 mg/dl HDL Cholesterol 84 mg/dl Cholesterol/HDL Ratio 2.2 LDL Cholesterol, Calculated 91 mg/dl Medical Emergencies . Who to Call and When: Medical Emergencies: If at any time you feel your situation is an emergency, please call 911 immediately. . Non-Emergent Contact Non-Emergency issues call your: Neurologist Call Non-Emergent contact if: you have a fever, your pain is not controlled, your pain is worsening, your pain is unusual for you, your pain is concerning you, wound has increased drainage, wound has increased redness, wound has increased pain, you have any medication questions . . "Provider Documentation" section prepared by Henry Dang. . Core Measure Problem Core Measures: Stroke Stroke Core Measures Reason no t-PA for Stroke: Treatment not indicated (patient being transferred to [facility] for further evaluation and treatment) Reason no antithrom by day 2: Treatment not indicated (patient being transferred to [facility] for further evaluation and treatment) Reason no antithrom at D/C: Treatment not indicated (patient being transferred to [facility] for further evaluation and treatment) Reason no statin at D/C: Treatment not indicated (patient being transferred to [facility] for further evaluation and treatment) Reason no anticoag w/a fib: Treatment not indicated (patient being transferred to [facility] for further evaluation and treatment)
[2017-05-21] MEDS ORDERED: METHYLPREDNISOLONE IV SCH (05:30)
[2017-05-21] MEDS ORDERED: DEXTROSE 5% IV SCH (05:30)
--- NOTE | 2017-05-21 05:33 | Discharge Summary ---
Discharge Summary Date of Service May 21, 2017. Discharge Summary Admission Date: May 19, 2017 at 13:29 Discharge Date: May 21, 2017 Discharge Disposition: Acute care facility Principal Diagnosis: Left Hip Fracture, CVA Immunizations: History of Tetanus Vaccine?: Unknown History of Pneumococcal: Unknown History of Hepatitis B Vaccine: Unknown Medication Reconciliation Discontinued Medications: Acetaminophen (Tylenol) 325 Mg Tab 650 MG PO Q4 PRN for Pain Alendronate Sodium (Alendronate Sodium) 70 Mg Tab 70 MG PO WK, #4 Lisinopril (Zestril) 10 Mg Tab 10 MG PO DAILY, #30 TAB 3 Refills Sertraline HCl (Sertraline HCl) 25 Mg Tab 25 MG PO QPM, #30 Discharge Exam GENERAL: alert, no distress EYE EXAM: normal conjunctiva, PERRL and EOM's grossly intact OROPHARYNX: no exudate, no erythema, lips, buccal mucosa, and tongue normal and mucous membranes are moist NECK: supple, no nuchal rigidity, no adenopathy, non-tender LUNGS: Clear to auscultation. Normal chest wall mechanics HEART: no murmurs, S1 normal and S2 normal ABDOMEN: abdomen soft, non-tender, normo-active bowel sounds, no masses, no rebound or guarding. BACK: Back is symmetrical on inspection and there is no deformity, no midline tenderness, no CVA tenderness. UPPER EXTREMITIES: upper extremities are grossly normal. LOWER EXTREMITIES: s/p left hip hemiarthroplasty NEURO EXAM: Left sided facial droop, Left sided UE weakness, LE not able to be examined due to recent surgery. alert following commands Hospital Course 81 yo F with HTN, Asthma admitted for Left Hip fracture s/p Left Hip Hemiarthroplasty today found to have acute Left sided weakness, Facial droop , acute mental status change in the post-operative period. CT of the Head was negative for acute hemorrhage. Case was discussed with Renee Del Castillo Neurology who evaluated patient via telemedicine. Decision was made to transfer. Patient was given ASA suppository , IV Solumedrol prior to discharge. Total Time Spent: Greater than 30 minutes This includes examination of the patient, discharge planning, medication reconciliation, and communication with other providers. Discharge Instructions Please refer to the electronic Patient Visit Report (Discharge Instructions) for additional information.
--- NOTE | 2017-05-21 06:49 | DIAGNOSTIC IMAGING REPORT ---
CHEST ONE VIEW PORTABLE HISTORY: 81 years-old Female ams acute altered mental status COMPARISON: Chest radiograph 05/19/2017 TECHNIQUE: Portable AP view of the chest FINDINGS: Cardiac silhouette is upper limits of normal in size. 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 Unchanged calcified right paratracheal and right perihilar lymph nodes compatible with prior granulomatous disease. Lungs are mildly hyperinflated without pneumothorax, pleural effusion or focal airspace consolidation. No overt pulmonary edema. Emphysema. The bones appear mildly demineralized. Degenerative changes are noted throughout the spine and shoulders. IMPRESSION: Emphysema without acute process. The above report was generated using voice recognition software. It may contain grammatical, syntax or spelling errors. Electronically signed by: Sarkis Palomino M.D. 05/21/2017 6:48 AM Dictated Date/Time: 05/21/2017 6:46 AM
--- NOTE | 2017-05-21 07:13 | DIAGNOSTIC IMAGING REPORT ---
CT OF THE HEAD WITHOUT CONTRAST CLINICAL HISTORY: Left sided weakness, acute mental status change. COMPARISON STUDY: Head CT June 30, 2015. CT DOSE: 614.27 mGy.cm TECHNIQUE: Helical axial images of the head were obtained without IV contrast. Automated exposure control was utilized for the study. A dose lowering technique was utilized adhering to the principles of ALARA. FINDINGS: No acute intracranial hemorrhage, midline shift or mass effect is present. Ventricular system is normal. Basilar cisterns are patent. There are no no extra-axial collections. White matter hypodensity suggests small vessel disease. A 1.1 cm left basal ganglia hypodensity is unchanged. This could reflect an old infarct or prominent perivascular space. There are no findings to suggest acute dural sinus thrombosis or acute territorial infarct. The frontal sinuses are opacified. There is near complete opacification of the ethmoid sinuses with a small air-fluid level within left maxillary sinus with moderate mucosal thickening of the left maxillary sinus and mild mucosal thickening of the right maxillary and sphenoid sinuses. Mastoid air cells are clear. There is no calvarial fracture. IMPRESSION: 1. No acute intracranial findings. 2. Extensive sinus disease with complete opacification of the frontal sinuses and near complete opacification of the ethmoid sinuses with a left maxillary sinus air-fluid level which may reflect acute sinusitis. Electronically signed by: Dayday Miranda M.D. 05/21/2017 7:11 AM Dictated Date/Time: 05/21/2017 7:06 AM
[2017-05-21] MEDS ORDERED: BOOST VANILLA PO SCH (07:30)
[2017-05-21] MEDS ORDERED: CEROVITE ADV FORMULA TAB PO SCH (09:00)
--- NOTE | 2017-05-21 09:17 | Anesthesiology Progress Note ---
Anesthesia Post Op Note Date & Time May 21, 2017 at 09:17 Vital Signs Pain Intensity: 0.0 Vital Signs Past 12 Hours Date Time Temp Pulse Resp B/P (MAP) Pulse Ox O2 Delivery O2 Flow Rate FiO2 05/21/17 05:31 123/64 (83) 92 2.0 05/21/17 05:30 84 18 100 Nasal Cannula 2.0 05/21/17 05:25 87 18 124/56 (78) 100 Nasal Cannula 2.0 05/21/17 05:15 86 17 100 Nasal Cannula 2.0 05/21/17 05:01 91 20 129/54 (79) 100 Nasal Cannula 2.0 05/21/17 05:00 90 20 100 Nasal Cannula 2.0 05/21/17 04:46 89 19 134/66 (88) 100 Nasal Cannula 2.0 05/21/17 04:45 90 15 100 Nasal Cannula 2.0 05/21/17 04:40 87 20 100 Nasal Cannula 2.0 05/21/17 04:31 98 20 180/69 (106) 98 Nasal Cannula 2.0 05/21/17 04:30 37.9 106 20 192/77 (115) 98 Nasal Cannula 2.0 05/21/17 04:17 93 16 129/70 (89) 05/21/17 03:49 37.8 94 18 127/59 (81) 92 Room Air 05/21/17 03:30 37.9 94 18 138/61 (86) 92 Room Air 05/21/17 00:00 Nasal Cannula 2.0 99 05/20/17 23:38 92 Nasal Cannula 2.0 05/20/17 23:30 36.7 92 18 110/58 (75) 86 Room Air 05/20/17 21:30 90 15 119/53 95 Nasal Cannula 4 05/20/17 21:20 37.1 95 14 116/52 97 Nasal Cannula 4 Notes Mental Status: alert / awake / arousable, participated in evaluation Nausea / Vomiting: adequately controlled Pain: adequately controlled Airway Patency, RR, SpO2: stable & adequate BP & HR: stable & adequate Hydration State: stable & adequate Neuraxial Anesthesia: sensory block resolved Anesthetic Complications: no major complications apparent Transferred to [facility] for further evaluation of signs of stroke , that appeared at 0330 this AM.
--- NOTE | 2017-05-21 10:27 | Anesthesiology Progress Note ---
Anesthesia Post Op Note Date & Time May 21, 2017 at 10:24 Vital Signs Pain Intensity: 0.0 Vital Signs Past 12 Hours Date Time Temp Pulse Resp B/P (MAP) Pulse Ox O2 Delivery O2 Flow Rate FiO2 05/21/17 05:31 123/64 (83) 92 2.0 05/21/17 05:30 84 18 100 Nasal Cannula 2.0 05/21/17 05:25 87 18 124/56 (78) 100 Nasal Cannula 2.0 05/21/17 05:15 86 17 100 Nasal Cannula 2.0 05/21/17 05:01 91 20 129/54 (79) 100 Nasal Cannula 2.0 05/21/17 05:00 90 20 100 Nasal Cannula 2.0 05/21/17 04:46 89 19 134/66 (88) 100 Nasal Cannula 2.0 05/21/17 04:45 90 15 100 Nasal Cannula 2.0 05/21/17 04:40 87 20 100 Nasal Cannula 2.0 05/21/17 04:31 98 20 180/69 (106) 98 Nasal Cannula 2.0 05/21/17 04:30 37.9 106 20 192/77 (115) 98 Nasal Cannula 2.0 05/21/17 04:17 93 16 129/70 (89) 05/21/17 03:49 37.8 94 18 127/59 (81) 92 Room Air 05/21/17 03:30 37.9 94 18 138/61 (86) 92 Room Air 05/21/17 00:00 Nasal Cannula 2.0 99 05/20/17 23:38 92 Nasal Cannula 2.0 05/20/17 23:30 36.7 92 18 110/58 (75) 86 Room Air Notes Patient did well immediately post-operatively, spinal completely resolved, then was exhibiting signs of stroke at 0330 AM today....transferred to [facility] for tertiary care and evaluation.
--- NOTE | 2017-05-21 10:29 | [facility] Operative Report ---
Operative Report Operative Date May 21, 2017. Pre-Operative Diagnosis Left displaced femoral neck fracture Post-Operative Diagnosis Left displaced femoral neck fracture Procedure(s) Performed Left Hip Bipolar Hemiarthroplasty Surgeon Dr. Ayon Director Of Fundraising Surgeon(s) Jason Kraft PA-C Estimated Blood Loss 400cc Findings see dictated op note Fluids 1500 LR, 250 albumin Specimens A. Left femoral head Drains None Anesthesia Type MAC Spinal Regional Complication(s) none Disposition Recovery Room / PACU Indications 81 year old female with displaced left comminuted femoral neck fracture sustained after a mechanical fall from standing height. The patient was medically stabilized for the OR 05/20/17. I indicated the patient for left hip hemiarthroplasty. The patient and son were informed of the risks and benefits of surgery, which included but not limited to infection, bleeding, blood clots, damage to nerves, vessels, bone and soft tissue, dislocation, leg length discrepancy, need for additional surgery and . The patients family collectively chose to move forward with surgical intervention and informed consent was obtained. Description of Procedure COMPONENTS USED: Hugo CRC Cemented Stem 13 x 210, Medial calcar augment 20mm , distal centralizer 10mm, Hugo cable 1.8, Bipolar shell 47, head 28/+3.5 Following induction of adequate anesthesia, the patient was transferred to the OR table and placed in the lateral decubitus position with right hip down. The left hip was prepped and draped in usual sterile manner. A posteriolateral incision was made. Subcutaneous tissue was sharply dissected. Electro cautery was used for hemostasis. Fascia was incised throughout the length of the wound and the piriformis was identified. A #1 Vicryl suture was used to tag the piriformis. The short external rotators were divided from the posterior aspect of the femur and a capsulotomy was performed. A second #1 Vicryl suture was used to tag the capsule. Next, I turned my attention to the femoral neck fracture. The fracture was relatively low on the calcar, and extended below the lesser trochanter with significant comminution. Utilizing a reciprocal saw, the neck cut was completed at the level of the lesser trochanter. This bone fragment was removed. Following this, tenaculum and garcia elevator was utilized to remove the femoral head. The head was measured on the back table and the 47 mm femoral head was chosen as the size to be used. Next, attention was turned to the acetabulum which was found to have no significant arthritis. All bony debris was removed. A sponge was placed in the acetabulum. Attention was then turned to the proximal femur. Due to the extent of her fracture comminution and relatively low in nature, a prophylactic cable was placed around the proximal femoral shaft just below the lesser trochanter. Next, a canal finder and power lateralizing reamer were utilized to gain access. Sequential raspings were taken up to a size 13. Next utilizing a 13 trial stem with a 20 mm medial calcar augment the trial stem was inserted completely to the level of the medial calcar cut. A trial reduction was carried out and a 28 /+3.5 mm femoral head was chosen the size to be used with the 47 bipolar cup. Following a trial reduction, the hip was found to be stable to 45 degrees of internal rotation and 90 degrees of flexion with equal leg lengths. Trial components were removed and the hip was thoroughly irrigated with sterile saline solution with bacitracin. The canal was irrigated and dried, cement restrictor was placed and Palacos cement was mixed. The size 13 x 210 CRC stem with 20mm medial calcar argument was cemented in place with a 10 mm centralizer and this was held in position well until cement hardened. All excess cement was removed. Following insertion of final stem component another trial reduction was carried out and again a +3.5 neck size was chosen as the size to be used. The final head and neck was impacted into position and the hip was reduced and stability assessed and was found to be stable to 45 degrees of internal rotation and 90 degrees of flexion. The wound was again irrigated with copious amounts of sterile saline solution. Ortho mix was injected throughout the hip and the capsule and external rotators were repaired using 5 fiberwire sutures. Once again the wound was copiously irrigated with sterile saline solution. Fascia was closed using #1 Vicryl [id number] sutures, subcutaneous tissue was closed using 2-0 vicryl, and skin was closed with sam. A sterile silverlon dressing was applied and abduction pillow placed between the legs. The patient tolerated the procedure well and was taken to recovery room in stable condition. Due to the complex nature of the procedure, the entire surgery was performed with the operational assistance of Jason Dunne PA-C. The medical clerical assistant, under direct supervision, was involved in the actual performance of all aspects of the surgical procedure including hemostasis, tissue retraction and incision, instrument management, patient positioning, and wound closure. I attest to the content of the Intraoperative Record and any orders documented therein. Any exceptions are noted below.
--- NOTE | 2017-06-18 05:13 | EDITING REQUIRED CODING QUERY ---
I only admitted this pt - I cannot speak to what occurred after admission under another [facility] care CODING QUERY To promote full compliance with coding requirements relating to patient care, provider participation is requested in all cases of surgical coder uncertainty. Please assist us with the question(s) below: Coding Question(s): Patient admitted with fractured hip and subsequent repair. Postop patient had a CVA.and was transferred to another acute care facility. Please check below the phrase that describes the etiology of the Stroke. Thanks for your help! STEPHANI Hall [facility] Physician's Response(s): The stroke is a postoperative complication of the Surgery The stroke was not related to the Surgery Cannot determine if the stroke was related to the Surgery Other: please document: Principal Diagnosis: "_that condition established after study, to be chiefly responsible for occasioning the admission of the patient to the hospital for care." Co-Existing Principal Diagnosis: "_when two or more diagnoses equally meet the criteria for principal diagnosis as determined by the circumstances of admission, diagnostic work up, and/or therapy provided, and the Alphabetic Index, Tabular List, or another coding guideline does not provide sequencing direction, any one of the diagnoses may be sequenced first." "When the physician has documented what appears to be a current diagnosis in the body of the record, but has not included the diagnosis in the final diagnostic statement, the physician should be asked whether the diagnosis should be added." (Source [facility] 2 QTR90. p3-4)
--- NOTE | 2017-06-20 06:26 | EDITING REQUIRED CODING QUERY ---
CODING QUERY To promote full compliance with coding requirements relating to patient care, provider participation is requested in all cases of physician coder uncertainty. Please assist us with the question(s) below: Coding Question(s): Patient admitted with fractured hip with subsequent repair done. Postop patient had a CVA and was transferred to another hospital. Please check below the phrase that describes the etiology of the CVA. Thanks for your help! STEPHANI Hall [facility] Physician's Response(s): ___x___ The stroke is a postoperative complication of the Surgery The stroke is not related to the Surgery Cannot determine if the stroke is related to the Surgery Other/ Please document: Principal Diagnosis: "_that condition established after study, to be chiefly responsible for occasioning the admission of the patient to the hospital for care." Co-Existing Principal Diagnosis: "_when two or more diagnoses equally meet the criteria for principal diagnosis as determined by the circumstances of admission, diagnostic work up, and/or therapy provided, and the Alphabetic Index, Tabular List, or another coding guideline does not provide sequencing direction, any one of the diagnoses may be sequenced first." "When the physician has documented what appears to be a current diagnosis in the body of the record, but has not included the diagnosis in the final diagnostic statement, the physician should be asked whether the diagnosis should be added." (Source Coding [facility] 2 QTR90. p3-4)
== END 2017-05-21 05:50 | disposition short-term general hospital (02) | DRG 469 ==
LOC: EDBD 08:20 → C.EDB 08:23 → EDBEDREQSVC 13:24 → C.MSN 13:29 → EDBEDREQSVC 13:30 → ENRESERV 13:44 → C.2T 05-20 21:49
PROVIDERS: ADMIT Internal Medicine; ATTEND Internal Medicine
PROC: 0SRS0J9 Replacement of Left Hip Joint, Femoral Surface with Synthetic Substitute, Cemented, Open Approach (ICD-10-PCS; principal; 2017-05-21)
DX: M80.052A Age-related osteoporosis with current pathological fracture, left femur, initial encounter for fracture (principal); I21.A1 Myocardial infarction type 2; G81.94 Hemiplegia, unspecified affecting left nondominant side; I97.821 Postprocedural cerebrovascular infarction following other surgery; E44.0 Moderate protein-calorie malnutrition; D62 Acute posthemorrhagic anemia; R29.810 Facial weakness; I10 Essential (primary) hypertension; J45.909 Unspecified asthma, uncomplicated; F41.8 Other specified anxiety disorders; I44.7 Left bundle-branch block, unspecified; F39 Unspecified mood [affective] disorder; I27.20 Pulmonary hypertension, unspecified; Z88.5 Allergy status to narcotic agent; Z88.8 Allergy status to other drugs, medicaments and biological substances; Y92.89 Other specified places as the place of occurrence of the external cause; W00.0XXA Fall on same level due to ice and snow, initial encounter; Y93.K1 Activity, walking an animal; Y83.8 Other surgical procedures as the cause of abnormal reaction of the patient, or of later complication, without mention of misadventure at the time of the procedure; Y92.239 Unspecified place in hospital as the place of occurrence of the external cause

== ENCOUNTER 2017-08-12 06:53 | Emergency (ER) | payer OTHER ==
[~2017-08-12] VITALS: Ht 157.5 cm; Wt 50.7 kg
[2017-08-12 06:59] VITALS: TEMP 36.7; Ht 157.5 cm; Wt 50.7 kg
--- NOTE | 2017-08-12 07:09 | EMERGENCY ROOM VISIT NOTE ---
History Report prepared by Rafael: Yo Hill Under the Supervision of: Dr. Bhaskar Esqueda M.D. First contact with patient: 06:55 Chief Complaint: FALL Stated Complaint: FALL History of Present Illness The patient is an 81 year old female who presents to the Emergency Room from [facility] following a traumatic falling episode that occurred early this morning at 0130, 5.5 hours ago. The patient states that she was getting up this morning when she states that she "lost her balance." The patient fell and tried to catch herself with her right wrist. There is an obvious deformity of the right wrist upon arrival to the ED. The pain is worsened with ROM of her hand. There is no pain in the right elbow. She is also complaining of pain in her upper back; "between her shoulder blades." Source of History: patient Onset: 5.5 hours ago Position: wrist (right), back (upper) Quality: other (Pain from falll (wrist fracture)) Timing: constant Modifying Factors (Worsening): movement (ROM of her right hand) Review of Systems See HPI for pertinent positives & negatives. A total of 10 systems reviewed and were otherwise negative. Past Medical & Surgical Medical Problems: (1) Asthma, Unspecified (2) Closed left hip fracture (3) Closed right hip fracture (4) Fall (5) Fracture of distal fibula (6) Hypertension Nos Family History FH: cancer Social History Smoking Status: Never Smoker Alcohol Use: none Marital Status: Housing Status: lives with significant other Occupation Status: retired Current/Historical Medications Scheduled Amlodipine Besylate (Amlodipine Besylate), 10 MG PO DAILY Aspirin (Aspirin Ec), 81 MG PO DAILY Cholecalciferol (Vitamin D), 1,000 UNITS PO DAILY Denosumab (Prolia), 1 DOSE INJ Q6MO Lisinopril (Lisinopril), 10 MG PO DAILY Pravastatin Sodium (Pravastatin Sodium), 10 MG PO DAILY Sertraline HCl (Sertraline HCl), 25 MG PO QPM Allergies Coded Allergies: Ceiba Seed (Unverified Allergy, Severe, ITCHING, SOB, 08/12/17) Iodinated Diagnostic Agents (Unverified Allergy, Intermediate, SHORTNESS OF BREATH, 08/12/17) CONFIRMED 08/11/2014 Ceiba Oil (Verified Allergy, Unknown, ITCHING,SHORTNESS OF BREATH, 08/12) Morphine (Verified Adverse Reaction, Unknown, GOT NAUSEATED AFTER 2ND SURGERY W/MSO4,NOTHING RELIEVED IT, 08/12/17) SEVERE NAUSEA Physical Exam Vital Signs Date Time Temp Pulse Resp B/P (MAP) Pulse Ox O2 Delivery O2 Flow Rate FiO2 08/12/17 11:14 88 139/60 94 Room Air 08/12/17 10:39 96 18 127/75 98 Room Air 08/12/17 08:30 91 15 136/60 97 Room Air 08/12/17 07:00 97 08/12/17 06:59 36.7 97 20 149/79 100 Room Air Physical Exam GENERAL: Awake, alert, well-appearing, in no acute distress HENT: Normocephalic, atraumatic. Oropharynx unremarkable. EYES: Normal conjunctiva. Sclera non-icteric. NECK: Supple. No nuchal rigidity. FROM. No JVD. RESPIRATORY: Clear to auscultation. CARDIAC: Regular rate, normal rhythm. Extremities warm and well perfused. Pulses equal. ABDOMEN: Soft, non-distended. No tenderness to palpation. No rebound or guarding. No masses. RECTAL: Deferred. MUSCULOSKELETAL: Chest examination reveals no tenderness. The back is symmetrical on inspection without obvious abnormality. There is tenderness over the T5-T6 area. There is no CVA tenderness to palpation. No joint edema. UPPER EXTREMITIES: There is an obvious deformity of the right wrist. LOWER EXTREMITIES: Calves are equal size bilaterally and non-tender. No edema. No discoloration. NEURO: Normal sensorium. No sensory or motor deficits noted. SKIN: No rash or jaundice noted. Medical Decision & Procedures ER Provider Diagnostic Interpretation: Radiology results as stated below per my review and radiologist interpretation: THORACIC SPINE 3 VIEWS ROUTINE CLINICAL HISTORY: 81 years-old Female presenting with Pt c/o mid spine pain s/p fall. TECHNIQUE: 3 views of the thoracic spine were obtained. COMPARISON: None. FINDINGS: Exaggerated thoracic kyphosis with mild vertebral body height loss of a mid to upper vertebral body (less than 25% anterior vertebral body height loss). A more significant compression deformity without focal kyphotic curvature is noted at the thoracolumbar junction. This vertebral body demonstrates greater than 50% anterior vertebral body height loss. Remaining vertebral bodies demonstrate normal height and alignment. Osteopenia suspected. Intervertebral disc heights preserved though disc osteophyte complexes noted to varying degrees at nearly every level. No gross osseous neural foraminal narrowing. Redemonstration of calcified right hilar and mediastinal masses, likely calcified lymphadenopathy. This is been stable since 2014. Arch is visualized lumbar fusion hardware. Slightly exaggerated cervical lordosis likely compensatory related to the presence of thoracic kyphosis. IMPRESSION: 1. Severe compression deformity at the thoracolumbar junction and mild compression deformity in the mid to upper thoracic spine. These are age-indeterminate and new since 2014. 2. Osteopenia. Electronically signed by: Ottoniel Serna M.D. 08/12/2017 7:42 AM Dictated Date/Time: 08/12/2017 7:38 AM R WRIST MIN 3 VIEWS ROUTINE HISTORY: 81 years-old Female Pt c/o Rt wrist pain acute right wrist pain status post fall COMPARISON: None available TECHNIQUE: 4 views of the right wrist FINDINGS: The bones appear moderately demineralized. Acute mildly comminuted fracture of the distal radial metaphysis with intra-articular extension into the radiocarpal and possibly also the distal radioulnar joints. There is 5 mm impaction with 4 mm lateral and 3 mm dorsal displacement. No significant angulation. Moderate soft tissue swelling about the wrist and distal forearm. There is mild widening of the scapholunate interval, 4 mm. Degenerative changes about the carpus and imaged hand. Distal ulna appears intact. IMPRESSION: 1. Acute mildly comminuted intra-articular fracture of the distal radius with impaction and mild displacement. 2. Moderate soft tissue swelling with degenerative changes as above. 3. Mild widening of the scapholunate interval may reflect underlying scapholunate ligamentous insufficiency. The above report was generated using voice recognition software. It may contain grammatical, syntax or spelling errors. Electronically signed by: Sarkis Palomino M.D. 08/12/2017 7:45 AM Dictated Date/Time: 08/12/2017 7:42 AM Medications Administered Medications (Trade) Dose Ordered Sig/Solo Route Start Time Stop Time Status Last Admin Dose Admin Acetaminophen (Tylenol Tab) 500 mg NOW STAT PO 08/12/17 08:14 08/12/17 08:16 DC 08/12/17 08:29 500 MG ED Course 0701: Past medical records reviewed. The patient was evaluated in room B6. A complete history and physical examination was performed. 0814: Ordered Acetaminophen 500 mg PO. 1017: I discussed the case with Dr. [facility]. He will evaluate the patient's x-rays. 1031: Dr. Kraft states that he the patient can be discharged home and follow -up outpatient. Medical Decision Differential diagnosis: Etiologies such as fracture, dislocation, intra-abdominal, pneumothorax, intrathoracic , intracranial, neurologic, as well as other traumatic pathologies were entertained. This is an 81-year-old female who presents the emergency department complaining of a fall. Patient has an obvious wrist deformity to the right hand. She is neurovascularly intact. Because of the angle of the fracture we did page [facility]. There was some delay in the initial page from the emergency department staff therefore there is an extended callback time from [facility]. After reviewing the films they felt that the patient could be safely discharged home as she already has a follow-up appointment tomorrow with [facility]. The patient was placed in a splint for comfort and given ice. She refused stronger pain medication here in the emergency department. She was given Tylenol. Also Medication Reconcilliation Current Medication List: was personally reviewed by me Blood Pressure Screening Patient's blood pressure: Elevated blood pressure Blood pressure disposition: Elevated BP felt to be situational Consults Time Called: [phone] Consulting Physician: Dr. [facility] Returned Call: [phone] I discussed the case with Dr. Kraft - Orthopedics. He will evaluate the patient's x-rays. Impression Primary Impression: Fall Additional Impression: Wrist fracture, right Scribe Attestation The scribe's documentation has been prepared under my direction and personally reviewed by me in its entirety. I confirm that the note above accurately reflects all work, treatment, procedures, and medical decision making performed by me. Departure Information Dispostion Home / Self-Care Referrals Vince Snell (PCP) Forms HOME CARE DOCUMENTATION FORM, IMPORTANT VISIT INFORMATION Patient Instructions My [facility] Additional Instructions Follow up with Dr Ayon's office tomorrow You have been examined and treated today on an emergency basis only. This is not a substitute for, or an effort to provide, complete comprehensive medical care. It is impossible to recognize and treat all injuries or illnesses in a single emergency department visit. It is therefore important that you follow up closely with your PCP. Call as soon as possible for an appointment. Thank you for your time and consideration. I look forward to speaking with you again soon. Please don't hesitate to call us if you have any questions. Problem Qualifiers Primary Impression: Fall Encounter type: initial encounter Qualified Codes: W19.XXXA - Unspecified fall, initial encounter Additional Impression: Wrist fracture, right Encounter type: initial encounter Fracture type: closed Qualified Codes: S62.101A - Fracture of unspecified carpal bone, right wrist, initial encounter for closed fracture
--- NOTE | 2017-08-12 07:43 | DIAGNOSTIC IMAGING REPORT ---
THORACIC SPINE 3 VIEWS ROUTINE CLINICAL HISTORY: 81 years-old Female presenting with Pt c/o mid spine pain s/p fall. TECHNIQUE: 3 views of the thoracic spine were obtained. COMPARISON: None. FINDINGS: Exaggerated thoracic kyphosis with mild vertebral body height loss of a mid to upper vertebral body (less than 25% anterior vertebral body height loss). A more significant compression deformity without focal kyphotic curvature is noted at the thoracolumbar junction. This vertebral body demonstrates greater than 50% anterior vertebral body height loss. Remaining vertebral bodies demonstrate normal height and alignment. Osteopenia suspected. Intervertebral disc heights preserved though disc osteophyte complexes noted to varying degrees at nearly every level. No gross osseous neural foraminal narrowing. Redemonstration of calcified right hilar and mediastinal masses, likely calcified lymphadenopathy. This is been stable since 2015. Arch is visualized lumbar fusion hardware. Slightly exaggerated cervical lordosis likely compensatory related to the presence of thoracic kyphosis. IMPRESSION: 1. Severe compression deformity at the thoracolumbar junction and mild compression deformity in the mid to upper thoracic spine. These are age-indeterminate and new since 2014. 2. Osteopenia. Electronically signed by: Ottoniel Serna M.D. 08/12/2017 7:42 AM Dictated Date/Time: 08/12/2017 7:38 AM
--- NOTE | 2017-08-12 07:47 | DIAGNOSTIC IMAGING REPORT ---
R WRIST MIN 3 VIEWS ROUTINE HISTORY: 81 years-old Female Pt c/o Rt wrist pain acute right wrist pain status post fall COMPARISON: None available TECHNIQUE: 4 views of the right wrist FINDINGS: The bones appear moderately demineralized. Acute mildly comminuted fracture of the distal radial metaphysis with intra-articular extension into the radiocarpal and possibly also the distal radioulnar joints. There is 5 mm impaction with 4 mm lateral and 3 mm dorsal displacement. No significant angulation. Moderate soft tissue swelling about the wrist and distal forearm. There is mild widening of the scapholunate interval, 4 mm. Degenerative changes about the carpus and imaged hand. Distal ulna appears intact. IMPRESSION: 1. Acute mildly comminuted intra-articular fracture of the distal radius with impaction and mild displacement. 2. Moderate soft tissue swelling with degenerative changes as above. 3. Mild widening of the scapholunate interval may reflect underlying scapholunate ligamentous insufficiency. The above report was generated using voice recognition software. It may contain grammatical, syntax or spelling errors. Electronically signed by: Sarkis Palomino M.D. 08/12/2017 7:45 AM Dictated Date/Time: 08/12/2017 7:42 AM
[2017-08-12] MEDS ORDERED: PRAV10TA39 PO (08:12)
[2017-08-12] MEDS ORDERED: NRV/10 PO (08:12)
[2017-08-12] MEDS ORDERED: DENO60SO INJ (08:12)
[2017-08-12] MEDS ORDERED: ACETAMINOPHEN 500 MG TAB PO STA (08:14)
[2017-08-12] MEDS ORDERED: LISI-461 PO (08:15)
[2017-08-12] MEDS ORDERED: CHOL100010 PO (08:15)
[2017-08-12] MEDS ORDERED: ASPI81TA28 PO (08:15)
[2017-08-12 11:14] VITALS: BP 139/60; PULSE 88; O2SAT 94
== END 2017-08-12 11:25 | disposition home or self-care (01) ==
LOC: EDBD 06:53 → C.EDB 06:54
DX: S52.501A Unspecified fracture of the lower end of right radius, initial encounter for closed fracture (principal); W19.XXXA Unspecified fall, initial encounter; Y92.122 Bedroom in nursing home as the place of occurrence of the external cause; J45.909 Unspecified asthma, uncomplicated; I10 Essential (primary) hypertension; Z79.82 Long term (current) use of aspirin; Z79.899 Other long term (current) drug therapy; Z91.041 Radiographic dye allergy status; Z88.5 Allergy status to narcotic agent; Z91.018 Allergy to other foods

== ENCOUNTER 2017-08-18 15:53 | Emergency (ER) | payer OTHER ==
[~2017-08-18] VITALS: Ht 158.8 cm; Wt 49.3 kg
[~2017-08-18 15:53] MED LIST changes: +ASPI81TA28 PO; +CHOL100010 PO; +DENO60SO INJ; -FSM70 PO; +LISI-461 PO; -LSN10 PO; +NRV/10 PO; +PRAV10TA39 PO; -TYLOTC325 PO
[2017-08-18 15:55] VITALS: Ht 158.8 cm; Wt 49.3 kg
[2017-08-18] MEDS ORDERED: RANITIDINE HCL 50 MG/100 ML D5W IV STA (16:16)
[2017-08-18] MEDS ORDERED: SODIUM CHLORIDE 0.9% 500ML 500 ML IV STA (16:16)
[2017-08-18] MEDS ORDERED: DiphenhydrAMINE HCL 50 MG/ML VIAL IV STA (16:16)
[2017-08-18] MEDS ORDERED: FENTANYL CITRATE INJ 50 MCG/1 ML 2 ML VIAL IV STA (16:48)
--- NOTE | 2017-08-18 17:16 | DIAGNOSTIC IMAGING REPORT ---
ADDENDUM The T12 compression fracture is stable compared to a 04/09/2017 lumbar spine radiograph and therefore is consistent with a chronic compression fracture. Electronically signed by: Oren Hobbs M.D. 08/18/2017 5:17 PM Dictated Date/Time: 08/18/2017 5:16 PM ORIGINAL REPORT THORACIC SPINE CT CT DOSE: HISTORY: Back pain. fall 1 week ago, compression fx TECHNIQUE: Multiaxial CT images of the thoracic spine were performed and reformatted in the sagittal and coronal plane without the use of contrast. A dose lowering technique was utilized adhering to the principles of ALARA. COMPARISON: Thoracic spine 08/12/2017. FINDINGS: Bilateral lower lobe linear densities favor subsegmental atelectasis. No pneumothorax. Moderate to severe compression deformity at T12 with associated 4 mm of retropulsion of the posterior superior corner. This results in mild to moderate central canal narrowing at this level. This is unchanged from the recent CT examination. This vertebral body demonstrates sclerosis and therefore favors a healing/subacute fracture. There is mild surrounding paravertebral edema. There is also a mild inferior endplate compression fracture at T5 which also demonstrate mild sclerosis. This demonstrates surrounding paravertebral edema/hemorrhage. This is consistent with an acute to subacute compression fracture. This also demonstrates 4 mm of retropulsion of the posterior inferior corner resulting in [id number] central canal narrowing. There is mild to moderate disc space narrowing and endplate osteophytes seen throughout the thoracic spine. No additional fractures identified within the thoracic spine. IMPRESSION: 1. Mild inferior endplate compression fracture at T5 which appears to be acute to subacute. This demonstrates 4 mm of retropulsion with mild to moderate central canal narrowing at this level. 2. Severe compression fracture at T12 which appears to be more subacute. This also demonstrates 4 mm of retropulsion with mild to moderate central canal narrowing. Electronically signed by: Oren Hobbs M.D. 08/18/2017 5:15 PM Dictated Date/Time: 08/18/2017 5:05 PM
--- NOTE | 2017-08-18 17:24 | DIAGNOSTIC IMAGING REPORT ---
LUMBAR SPINE CT CT DOSE: 571.10 mGy.cm HISTORY: Back pain. compression fractures, fall 1 week ago TECHNIQUE: Multiaxial CT images of the lumbar spine were performed and reformatted in the sagittal and coronal plane without the use of contrast. A dose lowering technique was utilized adhering to the principles of ALARA. COMPARISON: Lumbar spine 04/09/2017. FINDINGS: There is again noted posterior decompression and fusion at L4-L5 with pedicle screws and rods. The hardware remains intact. The L4 pedicles screw tips extend beyond the superior endplate. This remains unchanged. No change in the T12 compression deformity with 4 mm of retropulsion. Therefore, this is consistent with an old fracture. Mild inferior endplate sclerosis and slight indentation at L2 as well as mild loss of height of the L3 vertebral body remains unchanged. These are consistent with old compression deformities. No acute fractures identified within the lumbar spine. The sacrum appears intact. No change in the grade I anterolisthesis of L4 and L5. Paraspinal soft tissues are unremarkable. IMPRESSION: 1. No acute fractures within the lumbar spine. 2. Old compression deformities at T12 and within the lumbar spine as described above. 3. L4-5 posterior decompression and fusion is again noted. Electronically signed by: Oren Hobbs M.D. 08/18/2017 5:23 PM Dictated Date/Time: 08/18/2017 5:15 PM
[2017-08-18] MEDS ORDERED: ONDA4TAB46 PO (18:23)
[2017-08-18] MEDS ORDERED: OXYC1TAB3 PO (18:23)
--- NOTE | 2017-08-18 18:39 | EMERGENCY ROOM VISIT NOTE ---
History Report prepared by Gamaibkaci: Jon Marcus Under the Supervision of: Dr. Thelma Aquino M.D. First contact with patient: 16:00 Chief Complaint: ALLERGIC REACTION Stated Complaint: ALLERGIC REACTION History of Present Illness The patient is a 81 year old female who presents to the Emergency Room by EMS with complaints of improving generalized allergic reaction beginning two hours ago. Her symptoms include generalized itching and shortness of breath. The patient states that her symptoms began while at physical therapy today. She believes it was the elastic latex exercise bands that caused the reaction, as she has had an allergic reaction to elastic in the past. The patient was given Prednisone, EpiPen (x2), Benadryl, and was placed on supplemental oxygen. She states that these have improved her symptoms, and now she just feels itchy. She denies any swelling to her body. The patient is a resident at [facility]. She notes that she has right wrist from a fracture last week and upper/lower back pain which has been persistent since her recent fall. Source of History: patient Onset: two hours ago Position: other (generalized) Quality: other (allergic reaction) Timing: constant Modifying Factors (Relieving): other (Prednisone, EpiPen (x2), Benadryl, supplemental oxygen) Associated Symptoms: + SOB Note: The patient denies any swelling to her body. Review of Systems See HPI for pertinent positives & negatives. A total of 10 systems reviewed and were otherwise negative. Past Medical & Surgical Medical Problems: (1) Asthma, Unspecified (2) Closed left hip fracture (3) Closed right hip fracture (4) Fall (5) Fracture of distal fibula (6) Hypertension Nos (7) Osteoporosis Family History FH: cancer Social History Smoking Status: Never Smoker Alcohol Use: none Marital Status: Housing Status: lives with significant other Occupation Status: retired Current/Historical Medications Scheduled Amlodipine Besylate (Amlodipine Besylate), 10 MG PO DAILY Aspirin (Aspirin Ec), 81 MG PO DAILY Cholecalciferol (Vitamin D), 1,000 UNITS PO DAILY Denosumab (Prolia), 1 DOSE INJ Q6MO Lisinopril (Lisinopril), 10 MG PO DAILY Pravastatin Sodium (Pravastatin Sodium), 10 MG PO DAILY Sertraline HCl (Sertraline HCl), 25 MG PO QPM Scheduled PRN Ondansetron Hcl (Zofran), 4 MG PO Q6 PRN for Nausea Oxycodone Immediate Rel Tab (Roxicodone Ir), 5 MG PO Q6H PRN for Pain Allergies Coded Allergies: [place] Seed (Unverified Allergy, Severe, ITCHING, SOB, 08/18/17) Iodinated Diagnostic Agents (Unverified Allergy, Intermediate, SHORTNESS OF BREATH, 08/18/17) CONFIRMED 08/11/2014 Latex (Unverified Allergy, Unknown, ., 08/18/17) [place] Oil (Verified Allergy, Unknown, ITCHING,SHORTNESS OF BREATH, ) Morphine (Verified Adverse Reaction, Unknown, GOT NAUSEATED AFTER 2ND SURGERY W/MSO4,NOTHING RELIEVED IT, 08/18/17) SEVERE NAUSEA Physical Exam Vital Signs Date Time Temp Pulse Resp B/P (MAP) Pulse Ox O2 Delivery O2 Flow Rate FiO2 08/18/17 17:34 112 16 146/66 100 Nasal Cannula 4.0 08/18/17 16:31 121 08/18/17 15:55 96 Nasal Cannula 2.0 08/18/17 15:55 36.8 132 20 116/65 96 Nasal Cannula 2.0 Physical Exam Vital signs reviewed. General: Elderly, uncomfortable appearing female in some discomfort. Somewhat agitated. HEENT: No scleral icterus, PERRLA, neck supple. Atraumatic. Cardiovascular: Regular rate and rhythm, no extra sounds. Pulmonary: Clear to auscultation bilaterally, normal work of breathing. Abdomen: Soft, nontender, nondistended, positive bowel sounds. Musculoskeletal: Atraumatic, no peripheral edema. Tender to palpation over the mid-thoracic spine/ paraspinous muscles. Significant kyphosis. Splint on the right wrist. Neurologic: Patient awake alert and oriented x 3, full strength in all 4 extremities. Cranial nerves 2 through 12 grossly intact. Skin: Warm, dry, no rash. Diffuse macular erythematous rash across the lower chest, abdomen, bilateral upper extremities, and lower extremities. Medical Decision & Procedures ER Provider Diagnostic Interpretation: ADDENDUM The T12 compression fracture is stable compared to a 04/09/2017 lumbar spine radiograph and therefore is consistent with a chronic compression fracture. Electronically signed by: Oren Hobbs M.D. 08/18/2017 5:17 PM Dictated Date/Time: 08/18/2017 5:16 PM ORIGINAL REPORT THORACIC SPINE CT CT DOSE: HISTORY: Back pain. fall 1 week ago, compression fx TECHNIQUE: Multiaxial CT images of the thoracic spine were performed and reformatted in the sagittal and coronal plane without the use of contrast. A dose lowering technique was utilized adhering to the principles of ALARA. COMPARISON: Thoracic spine 08/12/2017. FINDINGS: Bilateral lower lobe linear densities favor subsegmental atelectasis. No pneumothorax. Moderate to severe compression deformity at T12 with associated 4 mm of retropulsion of the posterior superior corner. This results in mild to moderate central canal narrowing at this level. This is unchanged from the recent CT examination. This vertebral body demonstrates sclerosis and therefore favors a healing/subacute fracture. There is mild surrounding paravertebral edema. There is also a mild inferior endplate compression fracture at T5 which also demonstrate mild sclerosis. This demonstrates surrounding paravertebral edema/hemorrhage. This is consistent with an acute to subacute compression fracture. This also demonstrates 4 mm of retropulsion of the posterior inferior corner resulting in [id number] central canal narrowing. There is mild to moderate disc space narrowing and endplate osteophytes seen throughout the thoracic spine. No additional fractures identified within the thoracic spine. IMPRESSION: 1. Mild inferior endplate compression fracture at T5 which appears to be acute to subacute. This demonstrates 4 mm of retropulsion with mild to moderate central canal narrowing at this level. 2. Severe compression fracture at T12 which appears to be more subacute. This also demonstrates 4 mm of retropulsion with mild to moderate central canal narrowing. Electronically signed by: Oren Hobbs M.D. 08/18/2017 5:[address] DOSE: 571.10 mGy.cm HISTORY: Back pain. compression fractures, fall 1 week ago TECHNIQUE: Multiaxial CT images of the lumbar spine were performed and reformatted in the sagittal and coronal plane without the use of contrast. A dose lowering technique was utilized adhering to the principles of ALARA. COMPARISON: Lumbar spine 04/09/2017. FINDINGS: There is again noted posterior decompression and fusion at L4-L5 with pedicle screws and rods. The hardware remains intact. The L4 pedicles screw tips extend beyond the superior endplate. This remains unchanged. No change in the T12 compression deformity with 4 mm of retropulsion. Therefore, this is consistent with an old fracture. Mild inferior endplate sclerosis and slight indentation at L2 as well as mild loss of height of the L3 vertebral body remains unchanged. These are consistent with old compression deformities. No acute fractures identified within the lumbar spine. The sacrum appears intact. No change in the grade I anterolisthesis of L4 and L5. Paraspinal soft tissues are unremarkable. IMPRESSION: 1. No acute fractures within the lumbar spine. 2. Old compression deformities at T12 and within the lumbar spine as described above. 3. L4-5 posterior decompression and fusion is again noted. Electronically signed by: Oren Hobbs M.D. 08/18/2017 5:23 PM Dictated Date/Time: 08/18/2017 5:15 PM Medications Administered Medications (Trade) Dose Ordered Sig/Solo Route Start Time Stop Time Status Last Admin Dose Admin Sodium Chloride 500 ml @ 999 mls/hr Q31M STAT IV 08/18/17 16:16 08/18/17 16:46 DC 08/18/17 16:32 999 MLS/HR Diphenhydramine HCl (Benadryl Inj) 25 mg NOW STAT IV 08/18/17 16:16 08/18/17 16:20 DC 08/18/17 16:32 25 MG Ranitidine HCl (zANTac IV) 50 mg NOW STAT IV 08/18/17 16:16 08/18/17 16:20 DC 08/18/17 16:40 50 MG Fentanyl Citrate (Fentanyl Inj) 50 mcg NOW STAT IV 08/18/17 16:48 08/18/17 16:49 DC 08/18/17 17:36 25 MCG ED Course 1614: Past medical records reviewed. The patient was evaluated in room C12B. A complete history and physical examination was performed. 1616: Ordered Zantac 50 mg IV, Benadryl Inj 25 mg IV, Sodium Chloride 500 ml @ 999 mls/hr IV. 1648: Ordered Fentanyl Inj 50 mcg IV. Medical Decision Differential diagnosis: Etiologies such as allergic reaction, anaphylaxis, urticaria, Zamudio-Alan syndrome, toxic epidermal necrolysis, erythema multiforme, cellulitis, as well as others were entertained. This patient was evaluated and appeared to be in no significant distress. IV access was obtained and laboratory work was drawn. The patient was hydrated with normal saline solution. She was found to be tachycardic however I believe this is secondary to the 2 IM epinephrine injections administered prior to arrival. The patient continued to be symptomatic and was given IV Benadryl 25 mg and IV Zantac 50 mg. She was observed in the emergency department for 2-1/2 hours without recurrence of symptoms. Patient did receive 25 mcg of IV fentanyl for back pain after CT scan of the thoracic and lumbar spine. It appears that the patient has an acute/subacute fracture of T5 with 4 mm of retropulsion, this likely occurred with her most recent fall and wrist injury. There is a second compression fracture at T12 that appears to be more chronic in nature and was visualized on imaging in April. I did speak with orthopedic spine PA, Vivian Rees. She stated that it was not reasonable to attempt to brace this patient's fractures given her multiple complications and the limitations of the required brace. She offered to help arrange follow-up with Dr. Morejon as an outpatient. She is aware of the patient's wrist fracture and need for surgery with Dr. Carlisle. The surgery was apparently scheduled for tomorrow morning but was canceled by the senior care due to her allergic reaction this afternoon. The patient seems to be doing well clinically after the above medications. Case management contacted [facility] who agreed to increase her level of care to jail, at least temporarily. The patient was given a prescription for OxyIR 5 mg every 6 hours as needed for severe pain and Zofran 4 mg ODT every 6 hours as needed for nausea. In review of the patient's records , her reaction to morphine was nausea. The patient has received both IV fentanyl and Dilaudid previously without reaction reported. At this time the patient will need to be observed and assisted for ambulation to prevent falls. Patient should return to the ER at any time for worsening of symptoms or any medical concerns. Medication Reconcilliation Current Medication List: was personally reviewed by me Blood Pressure Screening Patient's blood pressure: Normal blood pressure Blood pressure disposition: Did not require urgent referral Impression Primary Impression: Allergic reaction Additional Impressions: Right wrist fracture Thoracic compression fracture Scribe Attestation The scribe's documentation has been prepared under my direction and personally reviewed by me in its entirety. I confirm that the note above accurately reflects all work, treatment, procedures, and medical decision making performed by me. Departure Information Prescriptions Ondansetron Hcl (ZOFRAN) 4 Mg Tab 4 MG PO Q6 Y for Nausea, #20 TAB Prov: Thelma Aquino M.D. 08/18/17 Oxycodone Immediate Rel Tab (ROXICODONE IR) 5 Mg Tab 5 MG PO Q6H Y for Pain, #20 TAB Prov: Thelma Aquino M.D. 08/18/17 Referrals No Doctor, Assigned (PCP) Patient Instructions [facility] Health Problem Qualifiers
[2017-08-18 19:34] VITALS: BP 128/60; PULSE 100; TEMP 36.7; O2SAT 98
== END 2017-08-18 19:35 | disposition home or self-care (01) ==
LOC: EDBD 15:53 → C.EDC 15:54
DX: T78.40XA Allergy, unspecified, initial encounter (principal); S22.050A Wedge compression fracture of T5-T6 vertebra, initial encounter for closed fracture; S22.080A Wedge compression fracture of T11-T12 vertebra, initial encounter for closed fracture; S62.101A Fracture of unspecified carpal bone, right wrist, initial encounter for closed fracture; W19.XXXA Unspecified fall, initial encounter; X58.XXXA Exposure to other specified factors, initial encounter; J45.909 Unspecified asthma, uncomplicated; I10 Essential (primary) hypertension; Z79.82 Long term (current) use of aspirin; Z79.899 Other long term (current) drug therapy; Z91.018 Allergy to other foods; Z91.041 Radiographic dye allergy status; Z88.6 Allergy status to analgesic agent; Z91.040 Latex allergy status; Z91.048 Other nonmedicinal substance allergy status

== ENCOUNTER → 2017-08-20 | Outpatient (CLI) | payer OTHER ==
[~2017-08-20] MED LIST changes: +ONDA4TAB46 PO; +OXYC1TAB3 PO
== END | disposition home or self-care (01) ==
LOC: C.LABFOXAE 08:24
PROVIDERS: ATTEND Internal Medicine
DX: S32.010A Wedge compression fracture of first lumbar vertebra, initial encounter for closed fracture (principal); X58.XXXA Exposure to other specified factors, initial encounter

== ENCOUNTER → 2017-11-20 | Outpatient (CLI) | payer OTHER, MEDICARE ==
[~2017-11-20] MED LIST changes: +OXYC-737 PO; -OXYC1TAB3 PO
--- NOTE | 2017-11-20 11:44 | DIAGNOSTIC IMAGING REPORT ---
MRA HEAD WITHOUT CONTRAST CLINICAL HISTORY: 82 years-old Female presenting with history of vascular prominence of the right Pcomm, follow-up. TECHNIQUE: MR angiography of the head was performed without the use of intravenous contrast using 3-D [id number] technique. 3-D volumetric and/or maximum intensity projection (MIP) images were subsequently reconstructed for review. IV contrast: None. COMPARISON: Outside MRA report from 05/21/2017. FINDINGS: Anterior circulation: Intracranial portions of the internal carotid arteries patent to the level of the termini. Anterior and middle cerebral arteries patent. Anterior communicating artery patent. Posterior circulation: Codominant vertebral arteries. Intradural portions of the vertebral arteries patent. Posterior inferior cerebellar arteries patent. Basilar artery patent. Anterior inferior cerebellar arteries poorly visualized. Superior cerebellar arteries patent. Left posterior cerebral artery patent. Right posterior cerebral artery may arise as a origin versus a hypoplastic right P1 segment. 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 This has a narrow neck. This is immediately adjacent to the internal carotid artery orifice. Hypoplastic left posterior communicating artery. IMPRESSION: 1. 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 Comparison to prior exams would be helpful as this is larger than the reported size based on the outside MRA report from May. No additional aneurysm. If a comparison becomes available, an addendum can be issued. The report will be called/faxed according to standard departmental protocol. Electronically signed by: Ottoniel Serna M.D. 11/20/2017 11:43 AM Dictated Date/Time: 11/20/2017 11:37 AM
== END | disposition home or self-care (01) ==
LOC: C.MRI 10:34
PROVIDERS: ATTEND Physician Assistant
DX: I63.9 Cerebral infarction, unspecified (principal); I69.90 Unspecified sequelae of unspecified cerebrovascular disease; I72.8 Aneurysm of other specified arteries

== ENCOUNTER 2022-05-20 14:41 | Inpatient (IN) ==
[2022-05-20] MEDS ORDERED: methylPREDNISolone 125 MG/2 ML VIAL IV STA (15:09)
[2022-05-20] MEDS ORDERED: ALBUT/IPRATROP 3MG/0.5MG NEB 3 ML VIAL NEB STA (15:12)
--- NOTE | 2022-05-20 15:17 | Emergency Department Note ---
Impression & Plan Acute allergic reaction, Hypoxia, Acute respiratory distress, Elevated troponin I level ED Provider Note NAME: CALRK BAZZI AGE: 86 SEX: F : 1935 ARRIVES VIA: Ambulance INFORMANT: Patient, EMS, skilled nursing documentation ED PROVIDER(S): Mao Bradshaw DO CHIEF COMPLAINT: Difficulty breathing HPI: The patient is an 86-year-old female who presented to the emergency department for presumed allergic reaction. The patient states that she has some food allergies. She ate lunch at around noon today. Around 2:00 she started having problems breathing. She states that she was walking at the time. She became very short of breath. She had nausea and vomiting. She had other GI effects as well. She was given epinephrine with her EpiPen prior to arrival. The feeling was that the patient was having a food allergic reaction. She was also given Benadryl prior to arrival by the prehospital personnel. The patient states that she feels significant improvement at this time. She required oxygen to maintain normal oxygen saturation. The patient denies having any chest pain at this time. She denies having any lower extremity swelling. She has had a dry cough. She denies of any fever. ROS: See above HPI for pertinent positives & negatives. A total of 10 systems reviewed and were otherwise negative. PAST MEDICAL HISTORY: See Below PAST SURGICAL HISTORY: See Below FAMILY HISTORY: See Below SOCIAL HISTORY: See Below HOME MEDICATIONS: See Below ALLERGIES: See Below VITALS: See Below PHYSICAL EXAMINATION: GENERAL: The patient is awake and alert. She is anxious appearing. EYES: The conjunctivae are clear. The pupils are round and reactive. EARS, NOSE, MOUTH AND THROAT: The nose is without any evidence of any deformity. Mucous members are dry. There is no erythema or swelling in the oropharynx. NECK: The neck is nontender and supple. RESPIRATORY: Tachypnea with conversational dyspnea was noted. Diminished breath sounds are noted throughout. CARDIOVASCULAR: Tachycardic and regular heart sounds were noted auscultation. There is no definite murmur. GASTROINTESTINAL: The abdomen is soft. Abdomen is nontender. MUSCULOSKELETAL/EXTREMITIES: There is no evidence of gross deformity full range of motion is noted in the hips and shoulders. SKIN: There is no obvious evidence of any rash. There are no petechiae, pallor or cyanosis noted. NEUROLOGIC: Patient is awake alert and oriented x3 MEDICAL DECISION MAKING: The patient is an 86-year-old female who presented to the emergency department for an evaluation of difficulty breathing. The patient had her lunch and then at least an hour after this meal she started having symptoms that were felt to be consistent with an allergic reaction. She has a history of sunflower seed allergy. She has an EpiPen for this. She was noted to have nausea and vomiting as well as difficulty breathing. She was given her EpiPen with the thought that this was allergic reaction. Upon arrival the patient was also given Benadryl IV by prehospital personnel. I discussed the patient's laboratory and radiographic studies with her. She was further treated with steroids in the emergency department as well as bronchodilator therapy. She was feeling much better but still continued to require oxygen. For this reason I discussed her case with the on-call [facility] hospitalist. They have agreed to evaluate the patient in the emergency department for further management and disposition. Of note the patient did have a slight elevation in troponin but at this time she has no chest pain. It is unclear if further work-up will be necessary to determine if this is truly from an allergic reaction. Triage Nursing notes reviewed. Prior medical records reviewed Vital Signs: reviewed and remarkable for no significant abnormalities Differential diagnosis: Allergic reaction, anaphylaxis, urticaria, Zamudio-Alan syndrome, toxic epidermal necrolysis, erythema multiforme, contact dermatitis, cellulitis, as well as other pathologies. ER treatment provided: See below Diagnostics interpreted by me: ECG: EKG was obtained in the emergency department. My interpretation is normal sinus rhythm at 99 bpm. There is no ectopy. Left bundle branch block pattern was noted. This was compared to a tracing from June 03, 2021. No changes were noted. Cardiac Monitoring: An order was placed for continuous cardiac monitoring. The monitor shows a rate of 93 bpm with sinus rhythm. Laboratory studies: As stated above and show below. Imaging studies: See below. Radiographic imaging was reviewed by myself Consultation(s): I discussed this case with Dr. Askew who is on-call for the [facility] hospitalist group. Past Med/Surg History Medical History Asthma Closed left hip fracture HTN (hypertension) Ischemic cerebrovascular accident (CVA) Moderate COPD (chronic obstructive pulmonary disease) Moderate pulmonary arterial systolic hypertension Osteoporosis Sacral fracture, closed Sacroiliac joint pain Surgical History History of back surgery History of left hip replacement Nausea and vomiting after administration of anesthetic agent SEVERE PONV S/P appendectomy S/P arthroscopy of knee S/P cataract surgery S/P inguinal hernia repair S/P tooth extraction S/P total hip arthroplasty Status post tubal ligation Family History Mother Hypertension Sister Lung cancer Other No significant family history Social History Smoking Status: Former smoker Cigarettes Per Day: SMOKED SOCIALLY X 10 YEARS. 3-4 CIGS PER DAY; Second Hand Exposure: No; Hx Alcohol Use: No Hx Substance Use: No Preferred Language: Mongolian Communication Ability: Effective Bending Shed Worker Required: No Beliefs That Will Affect Care: None Current Living Situation: Alone Feels Safe at Home: Yes Assistive Devices: Glasses and Hearing Aid - Bilateral Allergies Allergies Allergy/AdvReac Type Severity Reaction Status Date / Time sunflower seed Allergy Severe ITCHING, Verified 06/03/21 17:27 SOB Iodinated Contrast Media Allergy Intermediate SHORTNESS Verified 06/03/21 17:27 OF BREATH latex Allergy Unknown POWDER Verified 06/03/21 17:27 FROM A LATEX BAND CAUSED BREATHING ISSUES morphine AdvReac Unknown GOT Verified 06/03/21 17:27 NAUSEATED AFTER 2ND SURGERY W/MSO4,NOTHING RELIEVED IT Home Meds Home Medications Medication Instructions Recorded Confirmed aspirin 81 mg tablet,delayed 81 mg PO DAILY 02/04/18 06/03/21 release lisinopril 10 mg tablet 10 mg PO DAILY 02/04/18 06/03/21 pravastatin 10 mg tablet 10 mg PO DAILY 08/06/18 06/03/21 epinephrine 0.3 mg/0.3 mL 0.3 ml subcut UD PRN Chest Pain 11/25/18 06/03/21 injection, auto-injector cholecalciferol (vitamin D3) 25 2,000 units PO DAILY 11/30/18 06/03/21 mcg (1,000 unit) capsule denosumab 60 mg/mL subcutaneous 60 mg subcut .EVERY 6 MONTHS 01/10/21 06/03/21 syringe (Prolia) hydrochlorothiazide 12.5 mg capsule 12.5 mg PO DAILY 01/10/21 06/03/21 duloxetine 30 mg capsule,delayed 30 mg PO DAILY 03/28/21 06/03/21 release (Cymbalta) diclofenac sodium 1 % topical gel 2 g topical QID PRN Pain 05/01/21 06/03/21 Previous Rx's Medication Instructions Recorded famotidine 20 mg tablet 20 mg PO BID #20 tabs 06/03/21 ondansetron 4 mg disintegrating 4 mg PO Q6H PRN nausea and 06/03/21 tablet vomiting #14 tabs Results & Data (ED) Vital Signs Vital Signs - 24 hr 05/20/22 14:57 05/20/22 14:57 05/20/22 14:57 Temperature 37.2 C Temperature Source Oral Pulse Rate 107 H Pulse Rate from SpO2 Sensor Pulse Rhythm Regular Pulse Strength Normal Respiratory Rate 19 Respiratory Effort / Characteristics Non-Labored Spontaneous Respiratory Depth Normal Respiratory Pattern Regular Blood Pressure 135/71 Blood Pressure Mean 92 Blood Pressure Position Lying Pulse Oximetry 99 84 L Oxygen Delivery Method Nasal Cannula Nasal Cannula Nasal Cannula Oxygen Flow Rate 4 4 0 Sepsis Recent Fever Within 48 Hours No Sepsis New/Unexplained Change in Mental Status N/A Sepsis Action Taken by Nursing No Action Required Oxygen Flow Rate - Titration 4 Pulse Oximetry Post Tiitration 99 05/20/22 14:58 05/20/22 14:57 05/20/22 14:57 Temperature Temperature Source Pulse Rate 107 H 107 H Pulse Rate from SpO2 Sensor 107 H Pulse Rhythm Pulse Strength Respiratory Rate 25 H Respiratory Effort / Characteristics Respiratory Depth Respiratory Pattern Blood Pressure 141/72 H Blood Pressure Mean 95 Blood Pressure Position Pulse Oximetry 97 Oxygen Delivery Method Nasal Cannula Oxygen Flow Rate 4 Sepsis Recent Fever Within 48 Hours Sepsis New/Unexplained Change in Mental Status Sepsis Action Taken by Nursing Oxygen Flow Rate - Titration Pulse Oximetry Post Tiitration 05/20/22 15:00 05/20/22 15:00 05/20/22 15:10 Temperature Temperature Source Pulse Rate 102 H 106 H Pulse Rate from SpO2 Sensor 103 H 106 H Pulse Rhythm Pulse Strength Respiratory Rate 20 20 Respiratory Effort / Characteristics Respiratory Depth Respiratory Pattern Blood Pressure 135/71 Blood Pressure Mean 92 Blood Pressure Position Pulse Oximetry 99 99 Oxygen Delivery Method Nasal Cannula Nasal Cannula Oxygen Flow Rate 4 4 Sepsis Recent Fever Within 48 Hours Sepsis New/Unexplained Change in Mental Status Sepsis Action Taken by Nursing Oxygen Flow Rate - Titration Pulse Oximetry Post Tiitration 05/20/22 15:20 05/20/22 15:30 05/20/22 15:40 Temperature Temperature Source Pulse Rate 101 H 98 H 95 H Pulse Rate from SpO2 Sensor 101 H 98 H 95 H Pulse Rhythm Pulse Strength Respiratory Rate 19 21 14 Respiratory Effort / Characteristics Respiratory Depth Respiratory Pattern Blood Pressure Blood Pressure Mean Blood Pressure Position Pulse Oximetry 99 99 100 Oxygen Delivery Method Nasal Cannula Nasal Cannula Nasal Cannula Oxygen Flow Rate 4 4 4 Sepsis Recent Fever Within 48 Hours Sepsis New/Unexplained Change in Mental Status Sepsis Action Taken by Nursing Oxygen Flow Rate - Titration Pulse Oximetry Post Tiitration 05/20/22 15:50 05/20/22 16:00 05/20/22 16:00 Temperature Temperature Source Pulse Rate 97 H 95 H Pulse Rate from SpO2 Sensor 97 H 95 H Pulse Rhythm Pulse Strength Respiratory Rate 15 16 Respiratory Effort / Characteristics Respiratory Depth Respiratory Pattern Blood Pressure 110/45 L Blood Pressure Mean 66 Blood Pressure Position Pulse Oximetry 97 89 L Oxygen Delivery Method Nebulizer Nebulizer Oxygen Flow Rate Sepsis Recent Fever Within 48 Hours Sepsis New/Unexplained Change in Mental Status Sepsis Action Taken by Nursing Oxygen Flow Rate - Titration Pulse Oximetry Post Tiitration 05/20/22 16:03 05/20/22 16:03 05/20/22 16:10 Temperature Temperature Source Pulse Rate 96 H 95 H Pulse Rate from SpO2 Sensor 96 H 94 H Pulse Rhythm Pulse Strength Respiratory Rate 18 15 Respiratory Effort / Characteristics Respiratory Depth Respiratory Pattern Blood Pressure 120/59 L Blood Pressure Mean 79 Blood Pressure Position Pulse Oximetry 95 94 Oxygen Delivery Method Nasal Cannula Nasal Cannula Oxygen Flow Rate 3 3 Sepsis Recent Fever Within 48 Hours Sepsis New/Unexplained Change in Mental Status Sepsis Action Taken by Nursing Oxygen Flow Rate - Titration Pulse Oximetry Post Tiitration 05/20/22 16:20 Temperature Temperature Source Pulse Rate 93 H Pulse Rate from SpO2 Sensor 93 H Pulse Rhythm Pulse Strength Respiratory Rate 15 Respiratory Effort / Characteristics Respiratory Depth Respiratory Pattern Blood Pressure Blood Pressure Mean Blood Pressure Position Pulse Oximetry 95 Oxygen Delivery Method Nasal Cannula Oxygen Flow Rate 3 Sepsis Recent Fever Within 48 Hours Sepsis New/Unexplained Change in Mental Status Sepsis Action Taken by Nursing Oxygen Flow Rate - Titration Pulse Oximetry Post Tiitration Home Medications Current Medication List: was personally reviewed by me Laboratory Data Attestation: I reviewed the patient's lab results. 05/20/22 15:17 05/20/22 15:17 Lab Results 05/20/22 05/20/22 05/20/22 Range/Units 15:17 15:17 15:17 WBC 9.29 (4.8-10.8) K/ul RBC 3.65 L (4.20-5.40) M/uL Hgb 11.4 L (12.0-16.0) g/dl Hct 34.2 L (37.0-47.0) % MCV 93.7 (80.0-100.0) fL MCH 31.2 (25.0-34.0) pg MCHC 33.3 (32.0-36.0) g/dL RDW Std Deviation 43.3 (36.4-46.3) fL RDW Coeff of Rodrigue 12.5 (11.5-14.5) % Plt Count 180 (130-400) K/uL MPV 9.2 L (9.4-12.4) fL Immature Gran % (Auto) 0.3 % Neut % (Auto) 89.3 % Lymph % (Auto) 3.3 % Roane % (Auto) 6.0 % Eos % (Auto) 0.9 % Baso % (Auto) 0.2 % Neut # (Auto) 8.29 H (1.40-6.50) K/uL Lymph # (Auto) 0.31 L (1.2-3.4) K/uL Roane # (Auto) 0.56 (0.11-0.59) K/uL Eos # (Auto) 0.08 (0-0.50) K/uL Baso # (Auto) 0.02 (0-0.2) K/uL Immature Gran # (Auto) 0.03 (0.01-0.20) K/uL PT 12.5 H (9.0-12.0) Seconds INR 1.2 H (0.9-1.1) APTT 20.1 L (21.0-31.0) Seconds PTT Ratio 0.7 VBG pH (7.36-7.41) VBG pCO2 (38-50) mmHg VBG pO2 mmHg VBG HCO3 mmol/L VBG O2 Saturation % VBG Base Excess mEq/L Sodium 140 (136-145) mmol/L Potassium 3.7 (3.5-5.1) mmol/L Chloride 103 (98-107) mmol/L Carbon Dioxide 32 (21-32) mmol/L Anion Gap 5 (3-11) BUN 22 (6-23) mg/dl Creatinine 0.61 (0.6-1.2) mg/dl Est Cr Clr Drug Dosing 37.8 ml/min Est GFR ( Amer) 93.8 ml/min Est GFR (Non-Af Amer) 80.9 ml/min BUN/Creatinine Ratio 36.1 H (10-20) Glucose 127 H (70-99(Fasting)) mg/dl Calcium 8.3 L (8.5-10.1) mg/dl Total Bilirubin 0.4 (0.2-1.0) mg/dl AST 20 (13-39) U/L ALT 15 (7-52) U/L Alkaline Phosphatase 26 L (34-104) U/L Troponin I High Sens 30.7 H (0-14) pg/ml Total Protein 5.8 L (6.0-8.3) gm/dl Albumin 3.9 (3.4-5.0) gm/dl Globulin 1.9 L (2.5-4.0) gm/dl Albumin/Globulin Ratio 2.1 H (0.9-2) Lipase 36 (11-82) U/L SARS-CoV-2, RNA, NAAT (NEGATIVE) 05/20/22 05/20/22 Range/Units 15:27 15:39 WBC (4.8-10.8) K/ul RBC (4.20-5.40) M/uL Hgb (12.0-16.0) g/dl Hct (37.0-47.0) % MCV (80.0-100.0) fL MCH (25.0-34.0) pg MCHC (32.0-36.0) g/dL RDW Std Deviation (36.4-46.3) fL RDW Coeff of Rodrigue (11.5-14.5) % Plt Count (130-400) K/uL MPV (9.4-12.4) fL Immature Gran % (Auto) % Neut % (Auto) % Lymph % (Auto) % Roane % (Auto) % Eos % (Auto) % Baso % (Auto) % Neut # (Auto) (1.40-6.50) K/uL Lymph # (Auto) (1.2-3.4) K/uL Roane # (Auto) (0.11-0.59) K/uL Eos # (Auto) (0-0.50) K/uL Baso # (Auto) (0-0.2) K/uL Immature Gran # (Auto) (0.01-0.20) K/uL PT (9.0-12.0) Seconds INR (0.9-1.1) APTT (21.0-31.0) Seconds PTT Ratio VBG pH 7.37 (7.36-7.41) VBG pCO2 55 H (38-50) mmHg VBG pO2 43 mmHg VBG HCO3 32 mmol/L VBG O2 Saturation 71.9 % VBG Base Excess 5.0 mEq/L Sodium (136-145) mmol/L Potassium (3.5-5.1) mmol/L Chloride (98-107) mmol/L Carbon Dioxide (21-32) mmol/L Anion Gap (3-11) BUN (6-23) mg/dl Creatinine (0.6-1.2) mg/dl Est Cr Clr Drug Dosing ml/min Est GFR ( Amer) ml/min Est GFR (Non-Af Amer) ml/min BUN/Creatinine Ratio (10-20) Glucose (70-99(Fasting)) mg/dl Calcium (8.5-10.1) mg/dl Total Bilirubin (0.2-1.0) mg/dl AST (13-39) U/L ALT (7-52) U/L Alkaline Phosphatase (34-104) U/L Troponin I High Sens (0-14) pg/ml Total Protein (6.0-8.3) gm/dl Albumin (3.4-5.0) gm/dl Globulin (2.5-4.0) gm/dl Albumin/Globulin Ratio (0.9-2) Lipase (11-82) U/L SARS-CoV-2, RNA, NAAT NEGATIVE (NEGATIVE) Administered Medications Discontinued Medications Albuterol (Albut/Ipratrop 3mg/0.5mg Neb 3 Ml Vial) 3 ml NEB NOW STA; Protocol Stop: 05/20/22 15:13 Last Admin: 05/20/22 15:26 Dose: 3 ml Documented By: [id number] Methylprednisolone (Methylprednisolone 125 Mg/2 Ml Vial) 125 mg IV NOW STA Stop: 05/20/22 15:10 Last Admin: 05/20/22 15:26 Dose: 125 mg Documented By: [id number] Imaging Data Radiologist's Impression: Chest X-Ray 05/20/22 15:09 SINGLE VIEW CHEST CLINICAL HISTORY: Atypical chest pain FINDINGS: An AP, portable, upright chest radiograph is compared to study dated 06/03/2021. The examination is degraded by portable technique and patient rotation. There are calcified mediastinal and hilar lymph nodes. The cardiomediastinal silhouette is unremarkable noted is atherosclerotic calcification of the thoracic aorta. Chronic interstitial thickening is similar to previous. Scarring/atelectasis is noted at the lung bases. The lungs and pleural spaces are otherwise clear. No pneumothorax is seen. The skeletal structures are osteopenic. The bony thorax is grossly intact. IMPRESSION: No acute cardiopulmonary abnormality. ACT 112: Negative or not required by law. Electronically signed by: Johnathan White M.D. 05/20/2022 3:28 PM Discharge Plan Visit Data Chief Complaint: Allergic Reaction Stated Complaint: ALLERGIC REACTION ED Provider: Mao Bradshaw Discharge Problem: Acute allergic reaction, Hypoxia, Acute respiratory distress, Elevated troponin I level Patient Disposition: Being Evaluated by Hospitalist Forms Stand Alone Forms: My [facility] Prescriptions Prescriptions: No Action diclofenac sodium 1 % gel 2 g topical QID PRN (Reason: Pain) Rx Instructions: apply to single elbow, wrist or hand; for hand includes palm/fingers/back of hand duloxetine [Cymbalta] 30 mg capsule,delayed release(DR/EC) 30 mg PO DAILY epinephrine 0.3 mg/0.3 mL auto-injector 0.3 ml subcut UD PRN (Reason: Chest Pain) Label Comments: med list from [facility] cholecalciferol (vitamin D3) 1,000 unit capsule 2,000 units PO DAILY Label Comments: med list from [facility] aspirin 81 mg Tablet,Delayed Release (Dr/Ec) 81 mg PO DAILY Label Comments: med list from [facility] lisinopril 10 mg Tablet 10 mg PO DAILY Label Comments: med list from [facility] pravastatin 10 mg tablet 10 mg PO DAILY Label Comments: med list from [facility] hydrochlorothiazide 12.5 mg capsule 12.5 mg PO DAILY Label Comments: med list from [facility] Prolia 60 mg/mL syringe 60 mg SUBCUT .EVERY 6 MONTHS Label Comments: med list from [facility] Rx Instructions: due on 06/04/21 famotidine 20 mg tablet 20 mg PO BID Qty: 20 0RF ondansetron 4 mg tablet,disintegrating 4 mg PO Q6H PRN (Reason: nausea and vomiting) Qty: 14 0RF Referrals Referrals: Ethel Clarke [Primary Care Provider] -
--- NOTE | 2022-05-20 15:29 | XRay Report ---
SINGLE VIEW CHEST CLINICAL HISTORY: Atypical chest pain FINDINGS: An AP, portable, upright chest radiograph is compared to study dated 06/03/2021. The examina tion is degraded by portable technique and patient rotation. There are calcified mediastinal and hil ar lymph nodes. The cardiomediastinal silhouette is unremarkable noted is atherosclerotic calcificati on of the thoracic aorta. Chronic interstitial thickening is similar to previous. Scarring/atelectasi s is noted at the lung bases. The lungs and pleural spaces are otherwise clear. No pneumothorax is se en. The skeletal structures are osteopenic. The bony thorax is grossly intact. IMPRESSION: No acute cardiopulmonary abnormality. ACT 112: Negative or not required by law. Electronically signed by: Johnathan White M.D. 05/20/2022 3:28 PM
[2022-05-20 15:43] LABS: HCO3 VBG 32 mmol/L; Oxygen Saturation VBG 71.9 %; PCO2 VBG 55 mmHg (38-50); PO2 VBG 43 mmHg; pH VBG 7.37 (7.36-7.41)
[2022-05-20 15:55] LABS: Basophils # (auto) 0.02 K/uL (0-0.2); Basophils % (auto) 0.2 %; Eosinophils # (auto) 0.08 K/uL (0-0.50); Eosinophils % (auto) 0.9 %; Hematocrit (blood only) 34.2 % (37.0-47.0); Hemoglobin 11.4 g/dl (12.0-16.0); Immature Granulocytes # (auto) 0.03 K/uL (0.01-0.20); Immature Granulocytes % (auto) 0.3 %; Lymphocytes # (auto) 0.31 K/uL (1.2-3.4); Lymphocytes % (auto) 3.3 %; Mean Corpuscular Hemoglobin 31.2 pg (25.0-34.0); Mean Corpuscular Hgb Conc 33.3 g/dL (32.0-36.0); Mean Corpuscular Volume 93.7 fL (80.0-100.0); Mean Platelet Volume 9.2 fL (9.4-12.4); Monocytes # (auto) 0.56 K/uL (0.11-0.59); Neutrophils # (auto) 8.29 K/uL (1.40-6.50); Neutrophils % (auto) 89.3 %; Platelet Count 180 K/uL (130-400); RDW Coefficient of Variation 12.5 % (11.5-14.5); RDW Standard Deviation 43.3 fL (36.4-46.3); Red Blood Count 3.65 M/uL (4.20-5.40); White Blood Count 9.29 K/ul (4.8-10.8)
[2022-05-20 16:05] LABS: Albumin Globulin Ratio 2.1 (0.9-2); Albumin Level 3.9 gm/dl (3.4-5.0); BUN Creatinine Ratio 36.1 (10-20); Bilirubin,Total 0.4 mg/dl (0.2-1.0); Calcium 8.3 mg/dl (8.5-10.1); Creatinine Clr Calc Pharmacy 37.8 ml/min; Est GFR (African American) 93.8 ml/min; Est GFR (Non-African American) 80.9 ml/min; Globulin 1.9 gm/dl (2.5-4.0); Potassium 3.7 mmol/L (3.5-5.1); Total Protein 5.8 gm/dl (6.0-8.3)
[2022-05-20 16:11] LABS: Troponin I High Sensitivity 30.7 pg/ml (0-14)
[2022-05-20 16:20] LABS: INR 1.2 (0.9-1.1); Partial Thromboplastin Ratio 0.7; Partial Thromboplastin Time 20.1 Seconds (21.0-31.0); Prothrombin Time 12.5 Seconds (9.0-12.0)
--- NOTE | 2022-05-20 17:41 | History & Physical Report ---
Date of Service May 20, 2022 Assessment & Plan (1) Acute allergic reaction: Plan: Unclear if true allergic reaction but responded to epipen. Monitor overnight without anti-histamine or steroids. Suspect more likely bronchospasm Duonebs QID PRN for shortness of breath (2) Elevated troponin I level: Plan: Suspect demand ischemia due to EpiPen use No history of myocardial infarction but she does have a history of stroke Trend overnight with TTE in AM due her presenting complaint was shortness of breath however low suspicion of ACS unless wall motion abnormalities present (3) HTN (hypertension): Plan: Continue her usual home medication of lisinopril 10 mg p.o. daily, hydrochlorothiazide 12.5 mg p.o. daily (4) Osteoporosis: Plan: On Prolia every 6 months Plan VTE Prophylaxis - given expected stages overnight will defer VTE prophylaxis Diet - regular Disposition - observe on med/tele Admission and Anticipated Discharge Date Admission Date: May 20, 2022 History of Present Illness Primary Care Provider: [facility] Susan Ridley is an 86 year old female who presents to the ER due to concern for an allergic reaction. She reports walking home from lunch after eating a tuna sandwich which did not agree with her. She felt sick to the stomach and a diarrhea episode. She felt acutely short of breath followed by 1 episode of vomiting. No hematemesis. She denies any lip, throat or tongue swelling. No rash. Her neighbor called for medical help at [facility] and the provider came to evaluate her. Because of an allergy to sunflower seeds and concern her current symptoms were due to an allergy she was given an EpiPen injection. She was also given Benadryl prior to arrival by prehospital personnel. She does report these improved symptoms however her symptoms were very unlike her usual sunflower seed allergic reaction and she does not believe she ate any sesame seeds. She currently feels back to her usual self with no chest pain or shortness of breath but currently requiring 2 L of oxygen to maintain sats greater than 88%. She is open to being observed overnight after discussion with her daughter over the phone. Allergies Allergy/AdvReac Type Severity Reaction Status Date / Time sunflower seed Allergy Severe ITCHING, Verified 05/20/22 18:56 SOB Iodinated Contrast Media Allergy Intermediate SHORTNESS Verified 05/20/22 18:56 OF BREATH latex Allergy Unknown POWDER Verified 05/20/22 18:56 FROM A LATEX BAND CAUSED BREATHING ISSUES morphine AdvReac Unknown GOT Verified 05/20/22 18:56 NAUSEATED AFTER 2ND SURGERY W/MSO4,NOTHING RELIEVED IT Home Medications Medication Instructions Recorded Confirmed Type aspirin 81 mg tablet,delayed 81 mg PO QAM 02/04/18 05/20/22 History release lisinopril 10 mg tablet 10 mg PO QAM 02/04/18 05/20/22 History pravastatin 10 mg tablet 10 mg PO DAILY 08/06/18 05/20/22 History cholecalciferol (vitamin D3) 25 2,000 units PO DAILY 11/30/18 05/20/22 History mcg (1,000 unit) capsule denosumab 60 mg/mL subcutaneous 60 mg subcut .EVERY 6 MONTHS 01/10/21 05/20/22 History syringe (Prolia) duloxetine 20 mg capsule,delayed 20 mg PO DAILY 05/20/22 05/20/22 History release hydrochlorothiazide 12.5 mg capsule 12.5 mg PO DAILY 05/20/22 05/20/22 History vit C 250 mg-vit E 90 mg-zinc 40 1 tab PO AMHS 05/20/22 05/20/22 History mg-copper 1 [id number] capsule (PreserVision AREDS-2) Past Med/Surg History Medical History Asthma Closed left hip fracture HTN (hypertension) Ischemic cerebrovascular accident (CVA) Moderate COPD (chronic obstructive pulmonary disease) Moderate pulmonary arterial systolic hypertension Osteoporosis Sacral fracture, closed Sacroiliac joint pain Surgical History History of back surgery History of left hip replacement Nausea and vomiting after administration of anesthetic agent SEVERE PONV S/P appendectomy S/P arthroscopy of knee S/P cataract surgery S/P inguinal hernia repair S/P tooth extraction S/P total hip arthroplasty Status post tubal ligation Family History Mother Hypertension Sister Lung cancer Other No significant family history Social History Smoking Status: Former smoker Cigarettes Per Day: SMOKED SOCIALLY X 10 YEARS. 3-4 CIGS PER DAY; Second Hand Exposure: No; Hx Alcohol Use: No Hx Substance Use: No Preferred Language: Bengali Communication Ability: Effective Pediatric Intensive Physician Required: No Beliefs That Will Affect Care: None Current Living Situation: Alone Feels Safe at Home: Yes Assistive Devices: Glasses and Hearing Aid - Bilateral Review of Systems Review of Systems: All systems reviewed & are unremarkable except as noted in HPI & below Physical Exam Constitutional: WD/WN, vitals as above Eyes: + anicteric sclerae; normal pupil size ENMT: external ear and nose normal, oropharynx normal Respiratory: normal respiratory effort, lungs clear to auscultation Cardiovascular: RRR, no murmur, no edema Gastrointestinal (Abdomen): normal bowel sounds, soft, nontender, no hepatosplenomegaly Musculoskeletal: no cyanosis or clubbing, extremities motor strength 5/5 Skin: no rashes, warm and dry Neurologic: moves all extremities and awake; not confused Psychiatric: A+Ox3, euthymic affect Results & Data Results & Data ([facility]) Vital Signs (Past 12 Hours) Vital Signs Temp Pulse Resp BP Pulse Ox O2 Del Method O2 Flow Rate 05/20/22 16:20 93 H 15 95 Nasal Cannula 3 05/20/22 16:10 95 H 15 94 Nasal Cannula 3 05/20/22 16:03 96 H 18 95 Nasal Cannula 3 05/20/22 16:03 120/59 L 05/20/22 16:00 95 H 16 89 L Nebulizer 05/20/22 16:00 110/45 L 05/20/22 15:50 97 H 15 97 Nebulizer 05/20/22 15:40 95 H 14 100 Nasal Cannula 4 05/20/22 15:30 98 H 21 99 Nasal Cannula 4 05/20/22 15:20 101 H 19 99 Nasal Cannula 4 05/20/22 15:10 106 H 20 99 Nasal Cannula 4 05/20/22 15:00 102 H 20 99 Nasal Cannula 4 05/20/22 15:00 135/71 05/20/22 14:57 107 H 25 H 97 Nasal Cannula 4 05/20/22 14:57 141/72 H 05/20/22 14:58 107 H 05/20/22 14:57 84 L Nasal Cannula 0 05/20/22 14:57 Nasal Cannula 4 05/20/22 14:57 37.2 C 107 H 19 135/71 99 Nasal Cannula 4 Laboratory Results Abnormal lab results 05/20/22 05/20/22 05/20/22 Range/Units 15:17 15:17 15:17 RBC 3.65 L (4.20-5.40) M/uL Hgb 11.4 L (12.0-16.0) g/dl Hct 34.2 L (37.0-47.0) % MPV 9.2 L (9.4-12.4) fL Neut # (Auto) 8.29 H (1.40-6.50) K/uL Lymph # (Auto) 0.31 L (1.2-3.4) K/uL PT 12.5 H (9.0-12.0) Seconds INR 1.2 H (0.9-1.1) APTT 20.1 L (21.0-31.0) Seconds VBG pCO2 (38-50) mmHg BUN/Creatinine Ratio 36.1 H (10-20) Glucose 127 H (70-99(Fasting)) mg/dl Calcium 8.3 L (8.5-10.1) mg/dl Alkaline Phosphatase 26 L (34-104) U/L Troponin I High Sens 30.7 H (0-14) pg/ml Total Protein 5.8 L (6.0-8.3) gm/dl Globulin 1.9 L (2.5-4.0) gm/dl Albumin/Globulin Ratio 2.1 H (0.9-2) 05/20/22 Range/Units 15:27 RBC (4.20-5.40) M/uL Hgb (12.0-16.0) g/dl Hct (37.0-47.0) % MPV (9.4-12.4) fL Neut # (Auto) (1.40-6.50) K/uL Lymph # (Auto) (1.2-3.4) K/uL PT (9.0-12.0) Seconds INR (0.9-1.1) APTT (21.0-31.0) Seconds VBG pCO2 55 H (38-50) mmHg BUN/Creatinine Ratio (10-20) Glucose (70-99(Fasting)) mg/dl Calcium (8.5-10.1) mg/dl Alkaline Phosphatase (34-104) U/L Troponin I High Sens (0-14) pg/ml Total Protein (6.0-8.3) gm/dl Globulin (2.5-4.0) gm/dl Albumin/Globulin Ratio (0.9-2) Diagnostic Findings SINGLE VIEW CHEST CLINICAL HISTORY: Atypical chest pain FINDINGS: An AP, portable, upright chest radiograph is compared to study dated 06/03/2021. The examination is degraded by portable technique and patient rotation. There are calcified mediastinal and hilar lymph nodes. The cardiomediastinal silhouette is unremarkable noted is atherosclerotic calcification of the thoracic aorta. Chronic interstitial thickening is similar to previous. Scarring/atelectasis is noted at the lung bases. The lungs and pleural spaces are otherwise clear. No pneumothorax is seen. The skeletal structures are osteopenic. The bony thorax is grossly intact. IMPRESSION: No acute cardiopulmonary abnormality. Medications Administered ER medications given: Solu-Medrol 125 mg IV DuoNeb 3 mL neb ECG Indication: SOB/dyspnea Rate (beats per minute): 99 Rhythm: normal sinus Findings: + LBBB Comparison ECG Date: from (June 03, 2021) Change: no significant change Code Status & VTE Plan Code Status Full VTE Prophylaxis Plan VTE Prophylaxis will be ordered: No PG Care Time/CCT Total # of Minutes Spent Total Time Spent with Patient: Total time spent is greater than 50% in coordination of care (as documented) at patient's floor/unit and/or counseling patient: Coding Level of Care Code 87223 INT INP/OBS CARE 3/75MIN Diagnoses Acute allergic reaction T78.40XA Encounter type: initial encounter Elevated troponin I level R77.8 HTN (hypertension) I10 Osteoporosis M81.0 (1) Acute allergic reaction Encounter type: initial encounter Qualified Code(s): T78.40XA - Allergy, unspecified, initial encounter
[2022-05-20] MEDS ORDERED: ONDANSETRON INJ 2 MG/ML 2 ML VIAL IV PRN (21:36)
[2022-05-20] MEDS ORDERED: ALBUT/IPRATROP 3MG/0.5MG NEB 3 ML VIAL NEB PRN (21:36)
[2022-05-21 07:14] LABS: Hematocrit (blood only) 32.8 % (37.0-47.0); Hemoglobin 10.9 g/dl (12.0-16.0); Immature Granulocytes # (auto) 0.12 K/uL (0.01-0.20); Lymphocytes # (auto) 0.59 K/uL (1.2-3.4); Mean Corpuscular Hemoglobin 31.1 pg (25.0-34.0); Mean Corpuscular Hgb Conc 33.2 g/dL (32.0-36.0); Mean Corpuscular Volume 93.4 fL (80.0-100.0); Monocytes # (auto) 0.55 K/uL (0.11-0.59); Monocytes % (auto) 9.4 %; Neutrophils # (auto) 4.62 K/uL (1.40-6.50); Neutrophils % (auto) 78.6 %; Platelet Count 170 K/uL (130-400); RDW Coefficient of Variation 12.6 % (11.5-14.5); RDW Standard Deviation 43.3 fL (36.4-46.3); Red Blood Count 3.51 M/uL (4.20-5.40); White Blood Count 5.88 K/ul (4.8-10.8)
[2022-05-21 07:31] LABS: BUN Creatinine Ratio 42.9 (10-20); Creatinine Clr Calc Pharmacy 41.1 ml/min; Est GFR (African American) 96.5 ml/min; Est GFR (Non-African American) 83.2 ml/min; Potassium 4.1 mmol/L (3.5-5.1)
[2022-05-21] MEDS: CHOLECALCIFEROL 1,000 UNITS 25 MCG TAB PO SCH (08:01)
[2022-05-21] MEDS: ASPIRIN 81 MG ECTAB PO SCH (08:01)
[2022-05-21] MEDS: CEROVITE ADV FORMULA TAB PO SCH (08:01)
[2022-05-21] MEDS: hydroCHLOROthiazide 25 MG TAB PO SCH (08:02)
[2022-05-21] MEDS: PRAVASTATIN SOD 10 MG TAB PO SCH (08:02)
[2022-05-21] MEDS: lisinopril 10 MG TAB PO SCH (08:02)
[2022-05-21] MEDS: DULoxetine HCL 20 MG CAP PO SCH (08:02)
--- NOTE | 2022-05-21 14:55 | CT Scan Report ---
CT chest diagnostic wo con CT DOSE: 174.03 mGy.cm CLINICAL HISTORY: 86 years-old Female with chronic cough, R basilar rales/wheeze, eval path. Acute c ough with wheezing TECHNIQUE: Multiaxial CT images of the chest were performed without contrast. A dose lowering techni que was utilized adhering to the principles of ALARA. COMPARISON: Chest radiograph 05/20/2022, CT abdomen and pelvis 08/11/2014, lumbar spine MRI 01/11/2015, l umbar spine radiographs 06/15/2021, chest radiograph 01/26/2021 FINDINGS: Unremarkable thyroid. Calcified mediastinal and right hilar lymph nodes. Moderate cardiomeg leuxs. Trace pericardial effusion. Atherosclerosis of the thoracic aorta without aneurysm. Trace pleural effusions. No pneumothorax. Limited evaluation of the lungs secondary to respiratory mo tion artifact. Subsegmental bibasilar atelectasis. Mild tracheobronchial secretions with decreased AP dimension of the trachea and bronchi. Bibasilar mucous plugging. Mild intralobular septal thickening of the upper lobes. No acute process of the imaged upper abdomen. Mild generalized body wall edema. Degenerative changes of the shoulders and spine. Chronic left-sided rib fractures. Chronic T12 burst fracture with retropu lsion is similar to the comparison radiographs. Age-indeterminate 30% T3 and greater than 50% T5 comp ression deformities. 4 mm retropulsion at T5. IMPRESSION: 1. Cardiomegaly with trace pleural effusions. 2. No airspace consolidation to suggest pneumonia. 3. Suggested bronchitis with mild bibasilar mucous plugging. 4. Chronic appearing T5 and T12 compression deformities with age-indeterminate T3 compression fractur e without retropulsion, new from the 2020 comparison. 5. Prior granulomatous disease. ACT 112: Negative or not required by law. Electronically signed by: Jamarcus Palomino M.D. 05/21/2022 2:54 PM
--- NOTE | 2022-05-21 17:23 | XCELERA ---
[id number] \\[id number]___[id number].pdf
[2022-05-21] MEDS ORDERED: predniSONE 20 MG TAB PO STA (17:44)
--- NOTE | 2022-05-21 19:47 | Hospitalist Progress Note ---
Date of Service May 21, 2022 Assessment & Plan (1) Chronic bronchitis with acute exacerbation: Plan: By history she has had a chronic bronchial cough for months if not longer. PFTs from several years ago in her chart showed moderate obstruction with poor bronchodilator response. She appears to be having an acute exacerbation of her chronic bronchitis (likely has COPD) - perhaps triggered by sunflower oil? She did not have sunflower seeds by report. It does not sound like she had angioedema at any time but [id number] it is well-documented she had respiratory distress upon arrival here. She received epi-pen at [facility], followed by bronchodilators/steroids/benadryl here yesterday. All of the above led to clinical improvement. I obtained CT chest due to her chronic pulmonary symptoms. This showed evidence of bronchitis - c/w her history. No true pneumonia. Defer on abx. Plan to treat for COPD flare with prednisone. Place on symbicort or similar for chronic symptoms. Observe overnight Send to pulmonary post-d/c. (2) Asthma: Plan: h/o younger in life. previous PFTs with moderate obstruction with poor bronchodilator response more c/w COPD. see #1 above. add mucinex 600mg BID. (3) Acute allergic reaction: Plan: no angioedema but rest of her event suspicious for possible allergic rxn. see #1 above. (4) Elevated troponin I level: Plan: Suspect demand ischemia in setting of #1, #3 Echo with low-normal EF - 50-55%, perhaps LBBB mediated no ischemic symptoms doubt yesterday's event was ischemic in etiology (5) HTN (hypertension): Plan: Continue her usual home medication of lisinopril 10 mg p.o. daily and hydrochlorothiazide 12.5 mg p.o. daily (6) LBBB (left bundle branch block): Plan: had Incomplete LBBB for some time, now with LBBB. echo with preserved EF but low normal (50-55% on today's echo) no chronic ischemic symptoms, dizziness/near-syncope/syncopal events, etc. observe on tele overnight can defer on formal cards eval at this time (7) Osteoporosis: Plan: On Prolia every 6 months Does have compression fractures on T-spine on CT chest today but no symptoms Previous vit D levels were robust in the 50s Cont vit D supplementation as previous Plan change observation status to full admission due to #1 and #3 hopefully home tomorrow Admission and Anticipated Discharge Date Admission Date: May 21, 2022 Subjective patient feels very well today other than chronic cough she feels normal the cough is productive has had for a long time asks "what is causing it?" denies GERD denies dyspnea today does have h/o asthma but only as a child/young adult denies any throat swelling, rash/hives, lip swelling yesterday during her event with sunflower seed allergy usually her "ears get itchy" then "she gets itchy everywhere, then the breathing gets worse" this typical scenario did not happen yesterday she felt better after receiving epi-pen at the health office at [facility] never had chest tightness or chest pain Review of Systems Review of Systems: gen - no fevers cv - no orthopnea pulm - no wheezing at least in her estimation GI - no nausea or emesis today although had both yesterday; dyspnea started BEFORE the GI symptoms Physical Exam Physical Exam: gen - thin, NAD mouth - MMM neck - no JVD heart - RRR, s1 s2 split, no murmur lungs - focal wheezes with a crackle right base, clear on left, coughing throughout the visit (cough sounds bronchial) abd - soft NT ND BS+ ext - no edema, pulses 2+ b/l psych - a/o x 3 Results & Data Results & Data ([facility]) Vital Signs (Past 12 Hours) Vital Signs Temp Pulse Pulse Resp BP Pulse Ox O2 Del Method 05/21/22 15:29 90 05/21/22 11:06 36.5 C 82 20 149/65 H 98 Room Air Laboratory Results Laboratory Results - last 24 hr 05/20/22 05/21/22 05/21/22 18:50 06:53 06:53 WBC 5.88 RBC 3.51 L Hgb 10.9 L Hct 32.8 L MCV 93.4 MCH 31.1 MCHC 33.2 RDW Std Deviation 43.3 RDW Coeff of Rodrigue 12.6 Plt Count 170 MPV 9.0 L Immature Gran % (Auto) 2.0 Neut % (Auto) 78.6 Lymph % (Auto) 10.0 Harding % (Auto) 9.4 Eos % (Auto) 0.0 Baso % (Auto) 0.0 Neut # (Auto) 4.62 Lymph # (Auto) 0.59 L Harding # (Auto) 0.55 Eos # (Auto) 0.00 Baso # (Auto) 0.00 Immature Gran # (Auto) 0.12 Sodium Potassium Chloride Carbon Dioxide Anion Gap BUN Creatinine Est Cr Clr Drug Dosing Est GFR ( Amer) Est GFR (Non-Af Amer) BUN/Creatinine Ratio Glucose Calcium Troponin I High Sens 55.9 H* D 29.4 H D 05/21/22 06:53 WBC RBC Hgb Hct MCV MCH MCHC RDW Std Deviation RDW Coeff of Rodrigue Plt Count MPV Immature Gran % (Auto) Neut % (Auto) Lymph % (Auto) Harding % (Auto) Eos % (Auto) Baso % (Auto) Neut # (Auto) Lymph # (Auto) Harding # (Auto) Eos # (Auto) Baso # (Auto) Immature Gran # (Auto) Sodium 140 Potassium 4.1 Chloride 107 Carbon Dioxide 31 Anion Gap 2 L BUN 24 H Creatinine 0.56 L Est Cr Clr Drug Dosing 41.1 Est GFR ( Amer) 96.5 Est GFR (Non-Af Amer) 83.2 BUN/Creatinine Ratio 42.9 H Glucose 105 H Calcium 8.0 L Troponin I High Sens Diagnostic Findings Chest CT 05/21/22 11:59 CT chest diagnostic wo con CT DOSE: 174.03 mGy.cm CLINICAL HISTORY: 86 years-old Female with chronic cough, R basilar ral es/wheeze, eval path. Acute cough with wheezing TECHNIQUE: Multiaxial CT images of the chest were performed without contrast. A dose lowering technique was utilized adhering to the principles of ALARA. COMPARISON: Chest radiograph 05/20/2022, CT abdomen and pelvis 08/11/2014, lumbar spine MRI 01/11/2015, lumbar spine radiographs 06/15/2021, chest radiograph 01/26/2021 FINDINGS: Unremarkable thyroid. Calcified mediastinal and right hilar lymph nodes. Moderate cardiomegaly. Trace pericardial effusion. Atherosclerosis of the thoracic aorta without aneurysm. Trace pleural effusions. No pneumothorax. Limited evaluation of the lungs secondary to respiratory motion artifact. Subsegmental bibasilar atelectasis. Mild tracheobronchial secretions with decreased AP dimension of the trachea and bronchi. Bibasilar mucous plugging. Mild intralobular septal thickening of the upper lobes. No acute process of the imaged upper abdomen. Mild generalized body wall edema. Degenerative changes of the shoulders and spine. Chronic left-sided rib fractures. Chronic T12 burst fracture with retropulsion is similar to the comparison radiographs. Age-indeterminate 30% T3 and greater than 50% T5 nikolai светлана deformities. 4 mm retropulsion at T5. IMPRESSION: 1. Cardiomegaly with trace pleural effusions. 2. No airspace consolidation to suggest pneumonia. 3. Suggested bronchitis with mild bibasilar mucous plugging. 4. Chronic appearing T5 and T12 compression deformities with age-indeterminate T3 compression fracture without retropulsion, new from the 2020 comparison. 5. Prior granulomatous disease. ACT 112: Negative or not required by law. Electronically signed by: Jamarcus Palomino M.D. 05/21/2022 2:54 PM PG Care Time/CCT Total # of Minutes Spent Total Time Spent with Patient: Total time spent is greater than 50% in coordination of care (as documented) at patient's floor/unit and/or counseling patient: Coding Level of Care Code 23539 SUB INP/OBS CARE 3/50MIN Diagnoses Chronic bronchitis with acute exacerbation J20.9; J42 Asthma J45.909 Acute allergic reaction T78.40XA Encounter type: initial encounter Elevated troponin I level R77.8 HTN (hypertension) I10 LBBB (left bundle branch block) I44.7 Osteoporosis M81.0 (3) Acute allergic reaction Encounter type: initial encounter Qualified Code(s): T78.40XA - Allergy, unspecified, initial encounter
[2022-05-21] MEDS: FLUTICASONE/VILANTEROL 100/25MCG 14 PUFFS/INHALER INH SCH (20:49)
[2022-05-21] MEDS: guaiFENesin 600 MG TABCR PO SCH (20:50)
--- NOTE | 2022-05-22 04:30 | Electrocardiogram Report ---
Test Reason : Blood Pressure : / mmHG Vent. Rate : 099 BPM Atrial Rate : 099 BPM P-R Int : 132 ms QRS Dur : 126 ms QT Int : 402 ms P-R-T Axes : 062 -22 117 degrees QTc Int : 515 ms Normal sinus rhythm Left bundle branch block Abnormal ECG When compared with ECG of 03-JUN-2021 14:19, QRS duration has increased Confirmed by Ruben Agudelo ([id number]) on 05/22/2022 4:30:19 AM Referred By: Confirmed By:Ruben Agudelo
[2022-05-22] MEDS: FLUTICASONE/VILANTEROL 100/25MCG 14 PUFFS/INHALER INH SCH (07:19)
[2022-05-22] MEDS: guaiFENesin 600 MG TABCR PO SCH (07:20)
[2022-05-22] MEDS: hydroCHLOROthiazide 25 MG TAB PO SCH (07:20)
[2022-05-22] MEDS: lisinopril 10 MG TAB PO SCH (07:21)
[2022-05-22] MEDS: CHOLECALCIFEROL 1,000 UNITS 25 MCG TAB PO SCH (07:21)
[2022-05-22] MEDS: PRAVASTATIN SOD 10 MG TAB PO SCH (07:21)
[2022-05-22] MEDS: DULoxetine HCL 20 MG CAP PO SCH (07:21)
[2022-05-22] MEDS: ASPIRIN 81 MG ECTAB PO SCH (07:22)
[2022-05-22] MEDS: CEROVITE ADV FORMULA TAB PO SCH (07:22)
[2022-05-22] MEDS ORDERED: predniSONE 10 MG TABLET PO SCH (09:00)
[2022-05-22] MEDS ORDERED: lisinopril 20 MG TAB PO SCH (09:00)
--- NOTE | 2022-05-22 11:51 | Discharge Summary ---
Date of Service May 22, 2022 Admission HPI Per Admitting Provider Susan Ridley is an 86 year old female who presents to the ER due to concern for an allergic reaction. She reports walking home from lunch after eating a tuna sandwich which did not agree with her. She felt sick to the stomach and a diarrhea episode. She felt acutely short of breath followed by 1 episode of vomiting. No hematemesis. She denies any lip, throat or tongue swelling. No rash. Her neighbor called for medical help at [facility] and the provider came to evaluate her. Because of an allergy to sunflower seeds and concern her current symptoms were due to an allergy she was given an EpiPen injection. She was also given Benadryl prior to arrival by prehospital personnel. She does report these improved symptoms however her symptoms were very unlike her usual sunflower seed allergic reaction and she does not believe she ate any sesame seeds. She currently feels back to her usual self with no chest pain or shortness of breath but currently requiring 2 L of oxygen to maintain sats greater than 88%. She is open to being observed overnight after discussion with her daughter over the phone. Discharge Exam gen - thin, NAD mouth - MMM neck - no JVD heart - RRR, s1 s2 split, no murmur lungs - focal wheezes with a crackle right base, clear on left, coughing throughout the visit (cough sounds bronchial) abd - soft NT ND BS+ ext - no edema, pulses 2+ b/l psych - a/o x 3 Discharge Data Allergies Allergy/AdvReac Type Severity Reaction Status Date / Time sunflower seed Allergy Severe ITCHING, Verified 05/20/22 18:56 SOB Iodinated Contrast Media Allergy Intermediate SHORTNESS Verified 05/20/22 18:56 OF BREATH latex Allergy Unknown POWDER Verified 05/20/22 18:56 FROM A LATEX BAND CAUSED BREATHING ISSUES morphine AdvReac Unknown GOT Verified 05/20/22 18:56 NAUSEATED AFTER 2ND SURGERY W/MSO4,NOTHING RELIEVED IT Ordered Studies 05/21/22 11:59 CT chest diagnostic wo con Routine Hospital Course (1) Chronic bronchitis with acute exacerbation: By history she has had a chronic bronchial cough for months if not longer. PFTs from several years ago in her chart showed moderate obstruction with poor bronchodilator response. She appears to be having an acute exacerbation of her chronic bronchitis (likely has COPD) - perhaps triggered by sunflower oil? She did not have sunflower seeds by report. It does not sound like she had angioedema at any time but [id number] it is well-documented she had respiratory distress upon arrival here. She received epi-pen at [facility], followed by bronchodilators/steroids/benadryl here yesterday. All of the above led to clinical improvement. I obtained CT chest due to her chronic pulmonary symptoms. This showed evidence of bronchitis - c/w her history. No true pneumonia. Defer on abx. Plan to treat for COPD flare with prednisone. Place on symbicort or similar for chronic symptoms. Observe overnight Send to pulmonary post-d/c. (2) Asthma: h/o younger in life. previous PFTs with moderate obstruction with poor bronchodilator response more c/w COPD. see #1 above. add mucinex 600mg BID. (3) Acute allergic reaction: no angioedema but rest of her event suspicious for possible allergic rxn. see #1 above. (4) Elevated troponin I level: Suspect demand ischemia in setting of #1, #3 Echo with low-normal EF - 50-55%, perhaps LBBB mediated no ischemic symptoms doubt yesterday's event was ischemic in etiology (5) HTN (hypertension): Continue her usual home medication of lisinopril 10 mg p.o. daily and hydrochlorothiazide 12.5 mg p.o. daily (6) LBBB (left bundle branch block): had Incomplete LBBB for some time, now with LBBB. echo with preserved EF but low normal (50-55% on today's echo) no chronic ischemic symptoms, dizziness/near-syncope/syncopal events, etc. observe on tele overnight can defer on formal cards eval at this time (7) Osteoporosis: On Prolia every 6 months Does have compression fractures on T-spine on CT chest today but no symptoms Previous vit D levels were robust in the 50s Cont vit D supplementation as previous Plan change observation status to full admission due to #1 and #3 hopefully home tomorrow Discharge Plan Discharge Items Patient Disposition: Home - Self-Care Reason For Visit: Possible Allergic Reaction Discharge Diagnosis: 1. Probable allergic reaction - resolved 2. Chronic cough due to COPD (chronic obstructive pulmonary disease) - follow- up with pulmonary needed 3. Left bundle branch block - echocardiogram within normal limits 4. High blood pressure 5. 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 You received epi-pen at [facility], and then at [facility] you received additional treatments (IV steroids, etc). Your symptoms (difficulty breathing, etc) improved quickly with the above. After admission your oxygen levels remained normal. Your breathing was stable. You did have mild wheezing on exam. Some of the wheezing may have been from your allergic reaction, and some of it may be from COPD. The wheezing improved with ongoing steroids and inhalers. Pulmonary function tests done in 2019 indeed showed that you have obstructive lung disease, also known as "COPD." Please see handout on COPD. Your CT scan of the lungs showed that your bronchial tubes were inflamed which would be due to either the allergic reaction or from the COPD condition (or both). Your chronic cough is likely due to COPD. In addition, over the last few years, we have noted on EKGs that you were beginning to develop something called a "left bundle branch block." Most people with this do not have anything wrong with the heart. However, it is important to perform an echocardiogram of your heart to ensure normal heart function, etc. Your heart pumping ability was normal (your heart pump number was 50-55%, with normal being 50% or higher). Dr Bauer may recommend a routine follow-up visit with cardiology for the bundle branch block to ensure nothing else is needed. See handout on "left bundle branch block." Your blood pressures were high while here, likely a combination of the prednisone steroid and anxiety/stress. You will need very close follow-up of your blood pressure after discharge, preferably within 1-2 days for a repeat blood pressure check. Recommendations - 1. For COPD - * Breo inhaler - 1 puff daily EVERY day; rinse mouth with water after using * albuterol via spacer device - 2 puffs every 6 hours NEEDED for cough/wheezing/shortness of breath; this is a "rescue inhaler" for when you need it for your breathing * there is an attached handout showing how to use the spacer device with the albuterol inhaler * please see the rotary rig engine operator as scheduled later this spring 2. Prednisone course x 7 days, start this tomorrow on 05/23/22. This is for the probable allergic reaction as well as a "flare up" of your COPD. Take the prednisone with food. 3. Take a magnesium supplement once daily. 4. I have prescribed an epi-pen for you in the event of an emergency (severe allergic reaction to sunflower seed). 5. Again please have the nurse at the health clinic recheck your blood pressure within 24 hours of return home. If your BPs remain high Dr Bauer will likely have to adjust your blood pressure medications. Follow-up - see Dr Bauer within 48 hours Return to [facility] if - * you have worsening shortness of breath * you have chest pains * you have any concern about an allergic reaction * you have to use your epi-pen for an allergic reaction * any other concerns It was our pleasure to care for you at [facility]! -Dr Sumner Pending Studies at Discharge: No Stand-Alone Forms: My [facility], Smoking Cessation Medications and DC Order Prescriptions: New fluticasone furoate-vilanterol [Breo Ellipta] 100-25 mcg/dose Blister With Device 1 ea inhalation DAILY Qty: 60 2RF Rx Instructions: rinse mouth with water after each use magnesium oxide 400 mg magnesium tablet 400 mg PO DAILY Qty: 30 2RF prednisone 10 mg tablet 10 mg PO .daily as directed Qty: 14 0RF Rx Instructions: start 05/23/22: 3 tabs days 1 & 2; 2 tabs days 3,4,5; 1 tab days 6/7. Take w/ food. albuterol sulfate [Ventolin HFA] 90 mcg/actuation HFA aerosol inhaler 2 inh inhalation Q6H PRN (Reason: shortness of breath or wheezing or cough) Qty: 8.5 0RF Rx Instructions: use with spacer device (DME) Aerochamber Plus Flow-Vu Spacer See Rx Instructions .Route Qty: 1 0RF Rx Instructions: As directed epinephrine [EpiPen 2-Jani] 0.3 mg/0.3 mL auto-injector 0.3 mg IM ONCE PRN (Reason: anaphylaxis/severe allergic reaction) Qty: 2 0RF Continued cholecalciferol (vitamin D3) 1,000 unit capsule 2,000 units PO DAILY Patient Comments: med list from [facility] aspirin 81 mg Tablet,Delayed Release (Dr/Ec) 81 mg PO QAM Patient Comments: med list from [facility] lisinopril 10 mg Tablet 10 mg PO QAM Patient Comments: med list from [facility] pravastatin 10 mg tablet 10 mg PO DAILY Patient Comments: med list from [facility] Prolia 60 mg/mL syringe 60 mg SUBCUT .EVERY 6 MONTHS Patient Comments: med list from [facility] Rx Instructions: due JUN 04, 2022 hydrochlorothiazide 12.5 mg capsule 12.5 mg PO DAILY PreserVision AREDS-2 250-90-40-1 mg Capsule 1 tab PO [facility] duloxetine 20 mg capsule,delayed release(DR/EC) 20 mg PO DAILY Discharge Orders: Discharge Order (Routine); Ordered 05/22/22 Ordered By: Galileo Conklin/Other Patient Handouts: What Is COPD, Using an Inhaler with a Spacer, Using an Epinephrine Autoinjector, Left Bundle Branch Block Admission Data Admit Date/Time: 05/21/22 18:56 Attending Provider: Galileo Sumner Admit Provider: Galileo Askew Primary Care Provider: Alis Clarke Coding Diagnoses Chronic bronchitis with acute exacerbation J20.9; J42 Asthma J45.909 Acute allergic reaction T78.40XA Encounter type: initial encounter Elevated troponin I level R77.8 HTN (hypertension) I10 LBBB (left bundle branch block) I44.7 Osteoporosis M81.0
[2022-05-22] MEDS ORDERED: FLUTICASONE/VILANTEROL 100/25MCG 14 PUFFS/INHALER INH SCH (16:15)
== END 2022-05-22 15:26 | disposition home or self-care (01) | DRG 202 ==
LOC: ED 14:41 → 2W 14:41 → SUATTDRO 17:39 → 2W 21:47